=== PATIENT | female | born 1990 | race Caucasian/White ===

== ENCOUNTER 2021-10-31 01:54 | Day surgery (SDC) | payer OTHER, SELFPAY ==
[2021-10-28 13:05] VITALS: BMI 19.5
--- NOTE | 2021-10-28 13:11 | PC.NURSE ---
Report to the Outpatient Waiting Room, entrance under the green pavilion located off [facility], at time _0630__ on date _[id number]_. OR Time: _0830_. - You and your visitor will be asked a series of questions to screen for COVID 19 for your protection. - Only one visitor is allowed at this time. - The patient visitor is requested to leave or wait in car when not with patient. - A mask is required within the hospital. Patients may have clear liquids (water, carbonated beverages, clear teas, apple juice) until 3 hours prior to surgery with a maximum of 20 ounces. - No food from midnight until time of surgery Take the following medications with a SIP of water the morning of surgery: __None Medications to discontinue per physician Date to take last dose Please no make-up, nail serbian, hairspray, perfume, deodorant, or body powder the day of surgery. No jewelry (including any body piercings) or valuables the day of surgery, leave them at home. Please take a shower or bath the night before, or the morning of, surgery with an antibacterial soap. Wear comfortable, loose fitting clothing. Children are encouraged to wear pajamas. - Jewelry must be removed prior to entering the operating room. Rings and piercings that are not removed may be cut off. - The hospital will not accept responsibility for valuables. - Please leave all valuables, including medications, at home the day of surgery. If you are going home after surgery, a licensed dump truck driver must drive you home. - NO public transportation without another adult. - We recommend that an adult stay with you for 24 hours following discharge. - We also recommend that you do not drive, make important decision, drink alcoholic beverages, or take any drugs that were not prescribed by your health care provider for at least 24 hours after your discharge time. Follow any additional instructions given to you from your surgeon. If you or anyone in your household have experienced Covid symptoms in the past week, please notify your surgeon or the nurse liaison at the phone number below for possible testing. Telephone instructions given to __Patient and asked if any additional questions and then verbalized understanding. Patient advised to call surgeon office or pre surgery nurse liaison [phone] if any additional questions.
--- NOTE | 2021-10-30 21:31 | PM.HPGS ---
History of Present Illness History of Present Illness Consent: Risks, benefits, and alternatives have been discussed and questions answered. Patient agrees to proceed with procedure. Chief complaint: umbilical hernia 3mm Narrative: Mckenzie Kuhn is a 31 year old White female that recently presented to the office at the request of Daiana Balderas NP for an evaluation of an umbilical hernia. Patient reports that she first noticed a bulge above her umbilical about lat Jul 2021. She reports that she went to the gym after noticing the bulge, and was on leg exercise day and when she was finished with the workout she thought the bulge was larger. She reports that there is no pain or swelling associated with the bulge. She reports no change in her bowel habits. However, she would like to consider having this repaired because she would not like to have to have an emergency surgery. She reports that she has had 2 pregnancies within the past 3 years. She reports that she is not planning any more children. She is not currently on control nor has had a tubal ligation. Patient denies any previous abdominal surgeries. She reports that her father has had a hernia as well Review of Systems Review of Systems: All systems reviewed & are unremarkable except as noted in HPI and below (HPI) Constitutional: Constitutional: Reports as per HPI, Denies chills and Denies fever(s) Eyes: Eyes: Reports no additional eye complaints ENT: Reports Normal hearing present and Denies dizziness Cardiovascular: Cardiovascular: Reports no additional cardiovascular complaints, Denies chest pain and Denies irregular heart rhythm Respiratory: Respiratory: Reports no additional respiratory complaints Gastrointestinal: Gastrointestinal: Reports no additional gastrointestinal complaints, Denies abdominal pain, Denies bloating and Denies diarrhea Comments: still not much pain from the umbilical hernia. Genitourinary: Genitourinary: Denies hematuria Musculoskeletal: Musculoskeletal: Denies back pain Integumentary/Breasts: Skin/Breast: Reports system reviewed and no additional complaints, except as docu and Reports as per HPI Neurologic: Reports Normal hearing present, Denies Abnormal speech present, Denies confusion and Denies dizziness Psychiatric: Psychiatric: Reports no additional psychiatric complaints and Denies confusion Endocrine: Endocrine: Reports no additional endocrine complaints Hematologic/Lymphatic: Hematologic/Lymphatic: Denies easy bleeding and Denies easy bruising Allergic/Immunologic: Allergic/Immunologic: Reports no additional allergic/immunologic complaints PMFSH Past Medical History Medical History No pertinent past medical history Surgical History Surgical History H/O breast augmentation (~2012) History of augmentation of both breasts 2012 Family History Family History Mother Alcoholism Hypertension Depression Father Hypertension Alcoholism Depression Grandparent Cerebrovascular accident Grandparent Diabetes mellitus Sibling Alcoholism Social History Social History Smoking status: Never smoker Alcohol intake: current Drinks per week: 5 Substance use: never Substance use type: does not use Living arrangements: with family Additional living arrangements comments: Spouse and 2 daughters Additional occupation/education comments: stay at home mom Gender identity (if verbalized by the patient): Female Spiritual care concerns: No Meds Home Medications and Allergies Home Medications Medication Instructions Recorded Confirmed Type No Home Medications 08/26/21 10/28/21 History Allergies Allergy/AdvReac Type Severity Reaction Status Date / Time No Known Allergies A
[2021-10-31] VITALS (7 sets, daily range): BP systolic 101–112; BP diastolic 62–81; PULSE 68–105; RESP 12–20; TEMP 36.6; O2SAT 100
--- NOTE | 2021-10-31 07:11 | WPDANESEPPF ---
Anes - Initial Pre Proc Eval Procedure: Operation Date: 10/31/21 08:30 Proposed Procedures p Open Umbilical Hernia Repair with Sutures, - Edmund Layton MD s Excision of Skin Lesion Right Upper Quadrant of Abdomen - Edmund Layton MD Date/Time: 10/31/21 07:11 Surgeon: Edmund Layton MD Pre Op Diagnosis: umbilical hernia 3mm Patient Data Age: 31 Gender: F Height: 1.7 m Weight: 56.8 kg Allergies Allergy/AdvReac Type Severity Reaction Status Date / Time No Known Allergies Allergy Verified 10/28/21 13:05 Home Medications Medication Instructions Recorded Confirmed Type No Home Medications 08/26/21 10/28/21 History Patient hx anesthesia problems: none Family hx anesthesia problems: none Results Review: All pre-operative results and documents have been reviewed as part of the pre-operative evaluation. [facility] Past Medical History Medical History No pertinent past medical history Surgical History Surgical History H/O breast augmentation (~2012) History of augmentation of both breasts 2012 Family History Family History Mother Alcoholism Hypertension Depression Father Hypertension Alcoholism Depression Grandparent Cerebrovascular accident Grandparent Diabetes mellitus Sibling Alcoholism Social History Social History Smoking status: Never smoker Alcohol intake: current Drinks per week: 5 Substance use: never Substance use type: does not use Living arrangements: with family Additional living arrangements comments: Spouse and 2 daughters Additional occupation/education comments: stay at home mom Gender identity (if verbalized by the patient): Female Spiritual care concerns: No Anes - Eval Final PreProcedure Day of Procedure 10/31/21 07:11 Patient weight: normal Heart: regular rate and rhythm Lungs: clear to auscultation Airway: Mallampati scale class II Neurological: alert and oriented Last oral intake: >/= 8 hours ASA classification: I Emergent: no Anesthetic plan: proceed Anesthesia type and monitoring: general ETT and standard monitoring Results Review: All pre-operative results and documents have been reviewed as part of the pre-operative evaluation. Informed Consent: The patient's anesthetic plan and its attendant risks and benefits were discussed with the patient/family/POA. Questions were solicited and answers provided to the satisfaction of the patient/family/POA.
[2021-10-31] MEDS: ACETAMINOPHEN 500 MG TABLET 1000 MG PO (07:20)
[2021-10-31] MEDS: KETOROLAC 15 MG/ML VIAL (*BKC) IV PUSH (07:20)
[2021-10-31] MEDS: LACTATED RINGERS 1,000 ML 30 ML IV CONT ×2 (08:06→09:47)
--- NOTE | 2021-10-31 08:09 | WPDHPUPDATE1 ---
History and Physical Update Update Date/Time: 10/31/21 08:09 History and Physical has been reviewed, including an updated exam of the patient. There are NO changes in the patient's condition. Risks, benefits, and alternatives have been discussed and questions answered. Patient agrees to proceed with procedure.
[2021-10-31] MEDS: BACITRACIN OINTMENT 15 GM TUBE 1 APPLIC TOPICAL (09:00)
--- NOTE | 2021-10-31 09:59 | W.PM.PROC2 ---
Procedure Note - Detailed Date of Procedure 10/31/21 Pre-op Diagnosis 1. umbilical hernia 2. 3 mm dark elevated skin lesion (3 cm above and right of the umbilicus). Post-op Diagnosis Same Procedure Performed 1. Open umbilical hernia repair with sutures. 2. Skin level amputation of dark skin tag anterior abdominal skin. Surgeon Edmund Layton MD Automatic Profile [employer]ander Operator [facility]. OR First Asst. Anesthesia General (via LMA) Indications Bulging and pain at the umbilicus. Dark skin dark skin lesion on anterior abdominal skin Findings Small about 0.8 cm fascial defect under the skin of the umbilicus. Skin lesion was raised above the skin therefore simply amputated it at skin level and used cautery to stop any bleeding. Will let it heal in by secondary intention. Description of Procedure Patient was brought to the OR room on a cart. She then slid over onto the OR table. After induction of adequate general anesthesia including placement of an LMA by Tony anesthesia we prepped the entire abdomen concentrating on the center with chlorhexidine. Time-out was then performed with the surgery team and appropriate draping was completed. Local anesthetic was then instilled in a curvilinear line right at the upper edge of the umbilicus as previously outlined. skin incision was made and then I used the same 15 blade knife to carefully elevate the dark skin tag that was about 3 cm above and somewhat lateral to the umbilicus and amputated at skin level. I touch the base of this with Bovie cautery but did not try to close it as it was about 3 mm in size. I then turned my attention back to the umbilical hernia repair. We then carefully lifted the shorter skin flap superiorly off the hernia sac and dissected straight down to the superior edge of the fascial defect. It was a round fascial defect. I used a 15 blade knife and two Allis's to elevate the umbilical skin of the inferior skin flap and hen dissected the inferior umbilical skin flap off the hernia sac. I then carefully incised the hernia sac at its center and carefully dissected into the subcutaneous tissues above the level of the defect in the fascia such that we could dissect under the subcutaneous tissues for 1 cm cephalad. This nicely exposed the circular fascial defect. The mid section of the hernia sac both superiorly and inferiorly was then excised with Bovie cautery exposing the fascial edges. The visible and free omentum was able to be pushed back into the abdomen. After freshening the edges of the fascia I then did a mlijy-lith-vuvo closure with 3 sutures of 0 Ethibond starting each suture with a deep bite inferiorly then the superficial bite by coming through top to bottom superiorly then going again deep under superiorly then bringing the suture in a [id number]-xy-shwos fashion superficially inferiorly deep to superficial such that when we tied all 3 it pulled the upper fascia slightly underneath the edge of the lower fascia. After placing all 3 sutures I pulled them up tight making sure the omentum was nicely freed from the edges and stayed in the abdomen. I then tied each of these serially and then I placed one more simple suture to the Right lateral side to approximate more strongly the edge of the fascia in that area. The repair was inspected and palpated and seemed to be strong. Local anesthetic was then infiltrated into the surrounding tissues using the 2% Xylocaine with epinephrine to give a persisting analgesic effect for postoperative pain. Following this further closure was completed by using 3-0 Vicryl sutures in the subcutaneous tissues and then in a running subcuticular closure of 4-0 Monocryl on the skin. I also used one 3-0 Vicryl on the underside of the center of the inferior skin flap that had been dissected over the hernia and sutured this to the underlying fascia to try to give the patient an inny umbilicus. A sterile cotton ball was placed in the umbilicus after letting the surgical gl
== END 2021-10-31 11:11 | disposition home or self-care (01) ==
PROVIDERS: PCP Nurse Practitioner; Visit Provider Surgery
PROC: (CPT 49585; principal; 2021-10-31 08:30)
PROC: (CPT 49585; 2021-10-31 08:30)
DX: K42.9 Umbilical hernia without obstruction or gangrene (principal); D22.5 Melanocytic nevi of trunk
CPT/HCPCS: 49585; 11200; 88302; 88305; A9270; J1100; J1885; J2250; J2405; J2704; J3010; J7120

== ENCOUNTER 2022-02-16 16:58 | Emergency (ER) | payer OTHER, SELFPAY ==
[2022-02-16] VITALS (24 sets, daily range): BP systolic 107–151; BP diastolic 78–96; PULSE 70–94; RESP 13–25; O2SAT 98–100
--- NOTE | 2022-02-16 17:17 | ECG_ITS ---
Measurements Intervals [place] Rate: 71 P: -23 OH: 116 QRS: 60 QRSD: 86 T: 66 QT: 421 QTc: 457 Interpretive Statements SINUS OR ECTOPIC ATRIAL RHYTHM WITH SHORT OH INTERVAL BORDERLINE ECG NO PREVIOUS ECG AVAILABLE FOR COMPARISON Electronically Signed On 02-16-2022 21:11:28 CDT by Jerman Nickerson D.O.
[2022-02-16 17:25] LABS: Basophils Absolute Auto 0.1 K/mm3 (0.0-0.1); Basophils Percent Auto 0.7 % (0.2-1.2); Eosinophils Absolute Auto 0.1 K/mm3 (0-0.3); Eosinophils Percent Auto 1.4 % (0-4.4); Hematocrit 38.3 % (37.0-47.0); Hemoglobin 12.4 g/dL (12.0-15.0); Immature Granulocyte Absolute 0.03 K/mm3 (0.00-0.031); Immature Granulocyte Percent A 0.3 % (0-0.5); Lymphocytes Absolute Auto 3.63 K/mm3 (0.9-3.2); Mean Corpuscular HGB Conc 32.4 g/dl (32-36); Mean Corpuscular Hemoglobin 29.4 pg (26-34); Mean Corpuscular Volume 90.8 fl (80-100); Mean Platelet Volume 10.1 fl (7.4-10.4); Monocytes Absolute Auto 0.6 K/mm3 (0.1-0.6); Monocytes Percent Auto 5.9 % (2.6-8.5); Neutrophils Absolute Auto 5.6 K/mm3 (1.3-6.7); Neutrophils Percent Auto 55.7 % (45.5-73.1); Platelet Count Result 340 k/mm3 (150-375); Red Blood Count 4.22 M/mm3 (4.2-5.4); Red Cell Distribution Width 13.4 % (11.5-14.5); White Blood Count 10.1 K/mm3 (4.5-10.0)
[2022-02-16 17:37] LABS: Alanine Aminotransferase 14 U/L (6-35); Albumin Level 4.7 g/dL (3.5-5.1); Alkaline Phosphatase 79 U/L (38-126); Anion Gap 15 mmol/L (8-16); Aspartate Amino Transferase 20 U/L (14-36); Bilirubin,Total 0.4 mg/dL (0.2-1.3); Blood Urea Nitrogen 13 mg/dL (7-17); Calcium 8.8 mg/dL (8.4-10.2); Carbon Dioxide 19 mmol/L (22-30); Chloride 102 mmol/L (98-107); Estimated CRCL calculation 88 ml/min; Estimated Glomerular Filt Rate > 60; Glucose 108 mg/dL (65-110); Potassium 3.4 mmol/L (3.4-5.0); Sodium 136 mmol/L (137-145)
[2022-02-16] MEDS: LORazepam INJ (*CRX) 2 MG/ML VIAL 1 MG IV PUSH (17:51)
--- NOTE | 2022-02-16 17:54 | ED.DIZZY ---
HPI - Dizziness General Chief Complaint: Dizziness Stated Complaint: face numb, SOB Time Seen by Provider: 02/16/22 17:34 History of Present Illness HPI Narrative: 32 years old white female presents with sudden onset of lightheadedness dizziness feeling like going to blackout, associated with hyperventilation, stomach upset, tingling numbness of the upper extremities started in the last 15 minutes before finishing her chemistry class. Patient went back to school 2 weeks ago, today in the second chemistry class, too much stress lately. Patient came to the emergency room by private car, currently feeling much better compared to 1 hour ago. Patient does not smoke or drink or uses drugs, her parents have history of depression and currently on medications. Patient denies suicidal or homicidal ideation. Related Data Home Medications Medication Instructions Recorded Confirmed No Home Medications 11/20/21 01/13/22 Allergies Allergy/AdvReac Type Severity Reaction Status Date / Time No Known Allergies Allergy Verified 02/16/22 17:15 Review of Systems Review of Systems: All systems reviewed & are unremarkable except as noted in HPI and below PMFSH Past Medical History Medical History No pertinent past medical history Surgical History Surgical History H/O breast augmentation (~2012) H/O local excision of skin lesion 12/27/21 3cm skin lesion removed. History of augmentation of both breasts 2012 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 Hx of umbilical hernia repair Open umbilical hernia repair with sutures 10/31/2021 Family History Family History Mother Alcoholism Hypertension Depression Father Hypertension Alcoholism Depression Grandparent Cerebrovascular accident Grandparent Diabetes mellitus Sibling Alcoholism Social History Social History Smoking status: Never smoker Alcohol intake: current Drinks per week: 5 Substance use: never Substance use type: does not use Additional living arrangements comments: Spouse and 2 daughters Additional occupation/education comments: stay at home mom Gender identity (if verbalized by the patient): Female Spiritual care concerns: No Exam Narrative: General appearance: Well-developed, well-nourished Skin: Normal color Head: Normocephalic, nontraumatic Eyes: Clear conjunctiva ENT: Oropharynx normal, ears normal, nose normal Neck: Supple, nontender Chest and respiratory: Airway patent, no respiratory distress, no accessory muscle use Heart: Regular rate/rhythm Abdomen: Soft, nontender, no organomegaly, quiet bowel sounds Vascular: Normal peripheral pulses, normal capillary refill. Musculoskeletal: Normal range of motion, nontender back Neurologic: Alert and oriented ?3, MANAGER PURCHASING is normal as tested, no gross motor deficit Course Course Emergency Course: Dr. Madrid Consultation #1: Dr. Brooks Regarding to the short CA interval and delta wave and the possibility of WPW. Outpatient follow-up for echo. Date: 02/16/22 Time: 20:13 Vital Signs Vital signs: Vital Signs Pulse Rate 82 02/16/22 17:04 Blood Pressure 107/96 H 02/16/22 17:04 Pulse Rate 86 02/16/22 19:52 Respiratory Rate 18 02/16/22 19:52 Blood Pressure 119/83 02/16/22 19:30 Pulse Oximetry 98 02/16/22 19:52 Oxygen Delivery Room Air 02/16/22 17:07 MDM - Dizziness MDM Narrative Medical
== END 2022-02-16 20:45 | disposition home or self-care (01) ==
PROVIDERS: Emergency Provider Emergency Medicine; PCP Nurse Practitioner
DX: R42 Dizziness and giddiness (principal); R06.4 Hyperventilation; R94.31 Abnormal electrocardiogram [ECG] [EKG]
CPT/HCPCS: 36415; 80053; 85025; 93005; 96374; 99284; J2060

== ENCOUNTER 2022-09-18 12:25 | Outpatient (CLI) | payer OTHER, SELFPAY ==
--- NOTE | ~2022-09-18 | CT_ITS ---
Non-contrast Head CT History: Headache Technique: Axial non-contrast imaging of the brain was performed. Dose reduction technique was used on this scan by utilizing automated exposure control and iterative reconstruction technique. The dose -length product (DLP) was 681.00 mGy-cm. Findings: There is no evidence of intracranial hemorrhage, mass lesion, or acute infarct. Brain par enchyma appears normal. The ventricles and subarachnoid spaces are normal in size. The calvarium ap pears normal. The visualized paranasal sinuses and mastoid air cells are clear. Impression: No significant abnormality seen. Reviewed, dictated and finalized at location . Impression: No significant abnormality seen.
== END 2022-09-18 12:26 | disposition home or self-care (01) ==
LOC: ANHIMG 12:28
PROVIDERS: PCP Nurse Practitioner; Visit Provider Nurse Practitioner
DX: R51.9 Headache, unspecified (principal); R42 Dizziness and giddiness
CPT/HCPCS: 70450

== ENCOUNTER 2024-06-04 22:24 | Emergency (ER) | payer SELFPAY ==
--- NOTE | ~2024-06-04 | US_ITS ---
EXAMINATION: US pelvic complete w TV DATE: 06/05/2024 05:49 INDICATION: Left ovarian cyst. TECHNIQUE: Multiple transabdominal and transvaginal sonographic images of the pelvis were obtained. COMPARISON: CT abdomen and pelvis 06/05/2024 FINDINGS: TRANSABDOMINAL ULTRASOUND: The uterus measures 8.6 x 4.0 x 5.2 cm. There is no free fluid in the pelvis. TRANSVAGINAL ULTRASOUND: The endometrial complex measures 12 mm in thickness. The right ovary measures 3.2 x 1.5 x 2.3 cm. The left ovary measures 8.0 x 4.1 cm and contains a 7.7 cm echogenic shadowing mass, consistent with a d ermoid. There is normal vascular flow in the ovaries.. IMPRESSION: 1. 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 Reviewed, dictated and finalized at location A. [facility]
--- NOTE | ~2024-06-04 | CT_ITS ---
EXAMINATION: CT abdomen pelvis w con DATE: 06/05/2024 02:21 INDICATION: Right lower quadrant abdominal pain. TECHNIQUE: Computed tomography (CT) of the abdomen and pelvis was performed with 100 mL Omnipaque 350 intravenous contrast. Automated exposure control and iterative reconstruction technique were employe d. The dose-length product was 248.50 mGy-cm. COMPARISON: None. FINDINGS: The visualized portions of the lung bases demonstrate mild atelectasis. No pleural effusion . The heart size is normal. No pericardial effusion. There are bilateral breast implants. The liver, gallbladder, spleen, pancreas, adrenal glands, and kidneys are normal. There is a 7.8 x 4.0 cm mass c ontaining fat in the left ovary, consistent with a dermoid. There are no dilated loops of bowel. The appendix is not visualized. There are no pathologically enlarged lymph nodes. There is physiologic fl uid in the pelvis. There is mild lumbar spondylosis. IMPRESSION: 1. 7.8 cm dermoid in the left ovary. Reviewed, dictated and finalized at location A. [employer]
[2024-06-04 22:31] VITALS: BP 116/66; PULSE 102; RESP 18; TEMP 36.7; O2SAT 100
[2024-06-05 01:35] LABS: BEDSIDEPREGUCG Negative (Negative)
[2024-06-05 01:49] LABS: Add Urine Microscopic? YES; Appearance Urine Cloudy (Clear); Bacteria Urine 2+ /hpf; Bilirubin Urine Negative (Negative); Blood Urine Negative (Negative); Color Urine Yellow (Yellow); Glucose Urine UA Negative (Negative); Ketones Urine 2+ mg/dL (Negative); Leukocyte Esterase Ur 2+ LEU/UL (Negative); Need Manual Microscopic Reviewed; Nitrate Urine Negative (Negative); Protein Urine Negative (Negative); Specific Grav Ur 1.026 (1.001-1.035); Squamous Epithelial Cell Urine Few /hpf (Few); Urobilinogen Urine 0.2 mg/dL (<2.0); WBC Urine 21-50 /hpf (0-3)
[2024-06-05 01:51] LABS: Alanine Aminotransferase 13 U/L (6-35); Albumin Level 4.4 g/dL (3.5-5.1); Alkaline Phosphatase 69 U/L (38-126); Anion Gap 6 mmol/L (4-12); Aspartate Amino Transferase 21 U/L (14-36); Bilirubin,Total 0.6 mg/dL (0.2-1.3); Blood Urea Nitrogen 16 mg/dL (7-17); Calcium 9.4 mg/dL (8.4-10.2); Carbon Dioxide 23 mmol/L (22-30); Chloride 106 mmol/L (98-107); Estimated CRCL calculation 79 ml/min; Estimated Glomerular Filt Rate > 60; Glucose 131 mg/dL (65-110); Lipase 96 U/L (23-300); Potassium 4.1 mmol/L (3.4-5.0); Sodium 135 mmol/L (137-145)
[2024-06-05] MEDS: ACETAMINOPHEN 500 MG TABLET 1000 MG PO (01:51)
[2024-06-05] MEDS: DICYCLOMINE HCL 10 MG CAPSULE 20 MG PO (01:52)
[2024-06-05 01:56] VITALS: BP 119/89; PULSE 67; RESP 18; O2SAT 100
[2024-06-05 02:04] LABS: Basophils Percent Auto 0.2 % (0.2-1.2); Eosinophils Percent Auto 0.1 % (0-4.4); Hematocrit 39.3 % (37.0-47.0); Hemoglobin 12.7 g/dL (12.0-15.0); Immature Granulocyte Absolute 0.43 K/mm3 (0.00-0.031); Immature Granulocyte Percent A 2.2 % (0-0.5); Lymphocytes Absolute Auto 0.95 K/mm3 (0.9-3.2); Lymphocytes Percent Auto 4.8 % (18.3-44.2); Mean Corpuscular HGB Conc 32.3 g/dl (32-36); Mean Corpuscular Hemoglobin 27.4 pg (26-34); Mean Corpuscular Volume 84.9 fl (80-100); Mean Platelet Volume 10.5 fl (7.4-10.4); Monocytes Absolute Auto 0.5 K/mm3 (0.1-0.6); Monocytes Percent Auto 2.7 % (2.6-8.5); Neutrophils Absolute Auto 17.8 K/mm3 (1.3-6.7); Platelet Count Result 283 k/mm3 (150-375); Red Blood Count 4.63 M/mm3 (4.2-5.4); Red Cell Distribution Width 14.7 % (11.5-14.5); White Blood Count 19.8 K/mm3 (4.5-10.0)
--- NOTE | 2024-06-05 03:03 | ED_ITS ---
HPI - Abdominal Pain General Chief Complaint: Abdominal Pain <RENEE Guaman Last Filed: 06/05/24 20:25> Stated Complaint: abdominal pain after soda consumption <RENEE Guaman Last Filed: 06/05/24 20:25> Time Seen by Provider: 06/05/24 01:06 <RENEE Guaman Last Filed: 06/05/24 20:25> Source: patient <RENEE Guaman Last Filed: 06/05/24 20:25> Mode of arrival: ambulatory <RENEE Guaman Last Filed: 06/05/24 20:25> Limitations: no limitations <RENEE Guaman Last Filed: 06/05/24 20:25> History of Present Illness HPI narrative: Patient is a 34-year-old female who presents the ED with report of lower abdominal pain. Patient reports she developed pain around 7:30 p.m. tonight after eating dinner. She notes she had a soda with dinner and does not usually drink soda. She that this may be gas pains. States pain has continued to worsen throughout lower abd. Tried taking Tums without improvement. Has not taken anything further for pain. Pain worse with movement, lying flat. Denies nausea, vomiting, diarrhea, constipation, fevers. <RENEE Guaman Last Filed: 06/05/24 20:25> Related Data Allergies/Adverse Reactions: Allergies Allergy/AdvReac Type Severity Reaction Status Date / Time No Known Allergies Allergy Verified 09/12/22 14:02 <RENEE Guaman Last Filed: 06/05/24 20:25> Review of Systems 2 Review of Systems: All systems reviewed & are unremarkable except as noted in HPI. <RENEE Guaman Last Filed: 06/05/24 20:25> All systems reviewed & are unremarkable except as noted in HPI and below < RENEE Guaman Last Filed: 06/05/24 20:25> [facility] Past Medical History Medical History: Medical History Abnormal electrocardiography Intradermal melanocytic nevus <Juana Shepard PA-C - Last Filed: 06/05/24 20:25> Surgical History Surgical History: Surgical History H/O local excision of skin lesion 12/27/21 3cm skin lesion removed. 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 Hx of umbilical hernia repair Open umbilical hernia repair with sutures 10/31/2021 History of augmentation of both breasts 2012 H/O breast augmentation (~2012) <Juana Shepard PA-C - Last Filed: 06/05/24 20:25> Family History Family History: Family History Mother Alcoholism Hypertension Depression Father Hypertension Alcoholism Depression Grandparent Cerebrovascular accident Grandparent Diabetes mellitus Sibling Alcoholism <Juana Shepard PA-C - Last Filed: 06/05/24 20:25> Social History Social History: Social History Smoking status: Never smoker Alcohol intake: current Drinks per week: 5 Substance use: never Substance use type: does not use Living arrangements: with family Additional living arrangements comments: Spouse and 2 daughters Occupation/Education: unemployed Additional occupation/education comments: stay at home mom Gender identity (if verbalized by the patient): Female Spiritual care concerns: No <Juana Shepard PA-C - Last Filed: 06/05/24 20:25> Exam 2 Narrative: GENERAL: Somewhat uncomfortable appearing, thin, non-toxic, in no acute distress. HEAD: Normocephalic, atraumatic. RESPIRATORY: Airway patent, respirations nonlabored. Clear to auscultation bilaterally, no rales, rhonchi, wheezing. CARDIOVASCULAR: Borderline tachycardic with regular rhythm without murmurs, rubs, or gallops. ABDOMINAL: Soft, diffuse tenderness throughout abdomen, more severe tenderness in right upper quadrant/right lower quadrant, voluntary guarding, nondistended. Normoactive BS. MUSCULOSKELETAL: Moves all extremities. No gross deformities. SKIN: Warm, dry, normal color. NEURO: A&O X3. Speech clear. Cranial nerves II-XII grossly intact. No ataxic movements. PSYCHIATRIC: Appropriate mood and affect. Normal interaction. <Juana Shepard PA-C - Last Filed: 06/05/24 20:25> Course [employer]EARCH [employer] INSIGHTS EXECUTIVE/PA Physician Supervision For this patient encounter, I reviewed the RESEARCH & INSIGHTS EXECUTIVE or PA documentation, treatment plan, and medical decision making; and I had [id number] time with this patient. <Tom Heard MD - Last Filed: 06/05/24 06:25> Vital Signs Vital signs: Vital Signs Temperature 98.0 F 06/04/24 22:31 Pulse Rate 102 H 06/04/24 22:31 Respiratory Rate 18 06/04/24 22:31 Blood Pressure 116/66 06/04/24 22:31 Pulse Oximetry 100 06/04/24 22:31 Oxygen Delivery Room Air 06/04/24 22:31 Temperature 98.0 F 06/04/24 22:31 Pulse Rate 63 06/05/24 06:39 Respiratory Rate 18 06/05/24 06:39 Blood Pressure 124/73 06/05/24 06:39 Pulse Oximetry 100 06/05/24 06:39 Oxygen Delivery Room Air 06/04/24 22:31 <Juana Shepard PA-C - Last Filed: 06/05/24 20:25> Vital Signs Temperature 98.0 F 06/04/24 22:31 Pulse Rate 102 H 06/04/24 22:31 Respiratory Rate 18 06/04/24 22:31 Blood Pressure 116/66 06/04/24 22:31 Pulse Oximetry 100 06/04/24 22:31 Oxygen Delivery Room Air 06/04/24 22:31 Temperature 98.0 F 06/04/24 22:31 Pulse Rate 63 06/05/24 06:39 Respiratory Rate 18 06/05/24 06:39 Blood Pressure 124/73 06/05/24 06:39 Pulse Oximetry 100 06/05/24 06:39 Oxygen Delivery Room Air 06/04/24 22:31 <Tom Heard MD - Last Filed: 06/05/24 06:25> MDM - Abdominal Pain MDM Narrative Medical decision making narrative: Patient presented to ED with onset of right lower quadrant abdominal pain this evening after eating dinner. Vital signs are stable. Slightly tachycardic upon arrival, but in no acute distress. Does appear slightly uncomfortable. CBC with white blood cell count of 19.8. Neutrophil predominance. No bandemia. CMP is unremarkable. Normal LFTs and lipase. Urine with possible infection, 2+ leuk esterase, 21-50 white blood cell count, 2+ urine bacteria. Sent for culture. Will tx. Urine negative. CT scan of abdomen/pelvis obtained and showing large L adnexal lesion, recommended pelvic US. Patient given fluids, Tylenol, Bentyl. Initially reported improvement, but now reporting worsening of pain. Will order additional pain medicine. Ultrasound ordered to rule out torsion. Care signed out to Dr. Heard at shift change pending US results <Juana Shepard PA-C - Last Filed: 06/05/24 20:25> Medical Records Attestation: I reviewed the patient's medical records. <Juana Shepard PA-C - Last Filed: 06/05/24 20:25> Lab Data Attestation: I reviewed the patient's lab results. <Juana Shepard PA-C - Last Filed: 06/05/24 20:25> Result diagrams: 06/05/24 01:29 06/05/24 01:29 <Juana Shepard PA-C - Last Filed: 06/05/24 20:25> Labs: Lab Results 06/05/24 06/05/24 Range/Units 01:29 01:33 WBC 19.8 H (4.5-10.0) K/mm3 RBC 4.63 (4.2-5.4) M/mm3 Hgb 12.7 (12.0-15.0) g/dL Hct 39.3 (37.0-47.0) % MCV 84.9 (80-100) fl MCH 27.4 (26-34) pg MCHC 32.3 (32-36) g/dl RDW 14.7 H (11.5-14.5) % Plt Count 283 (150-375) k/mm3 MPV 10.5 H (7.4-10.4) fl Immature Gran % (Auto) 2.2 H (0-0.5) % Neut % (Auto) 90.0 H (45.5-73.1) % Lymph % (Auto) 4.8 L (18.3-44.2) % [place] % (Auto) 2.7 (2.6-8.5) % Eos % (Auto) 0.1 (0-4.4) % Baso % (Auto) 0.2 (0.2-1.2) % Lymph # (Auto) 0.95 (0.9-3.2) K/mm3 [place] # (Auto) 0.5 (0.1-0.6) K/mm3 Eos # (Auto) 0.0 (0-0.3) K/mm3 Baso # (Auto) 0.0 (0.0-0.1) K/mm3 Abs Immat Gran (auto) 0.43 H (0.00-0.031) K/mm3 Absolute Neuts (auto) 17.8 H (1.3-6.7) K/mm3 Absolute Nucleated RBC 0.000 (0.0-0.012) K/mm3 Nucleated RBC % 0.0 (0.0-0.2) % Sodium 135 L (137-145) mmol/L Potassium 4.1 (3.4-5.0) mmol/L Chloride 106 (98-107) mmol/L Carbon Dioxide 23 (22-30) mmol/L Anion Gap 6 (4-12) mmol/L BUN 16 (7-17) mg/dL Creatinine 0.80 (0.7-1.0) mg/dL Estim Creat Clear Calc 79 ml/min Estimated GFR > 60 (59 - ) Glucose 131 H (65-110) mg/dL Calcium 9.4 (8.4-10.2) mg/dL Total Bilirubin 0.6 (0.2-1.3) mg/dL AST 21 (14-36) U/L ALT 13 (6-35) U/L Alkaline Phosphatase 69 (38-126) U/L Total Protein 8.0 (6.3-8.2) g/dL Albumin 4.4 (3.5-5.1) g/dL Lipase 96 (23-300) U/L Urine Color Yellow (Yellow) Urine Appearance Cloudy H (Clear) Urine pH 5.0 (5.0-9.0) Ur Specific [place] 1.026 (1.001-1.035) Urine Protein Negative (Negative) mg/dL Urine Glucose (UA) Negative (Negative) mg/dL Urine Ketones 2+ H (Negative) mg/dL Ur Blood (Man) Negative (Negative) Urine Nitrate Negative (Negative) Urine Bilirubin Negative (Negative) Urine Urobilinogen 0.2 (<2.0) mg/dL Add Ur Microanalysis Reviewed Leukocyte Esterase Rfl 2+ H (Negative) ROBBIE/UL Urine RBC 6-10 H (0-2) /hpf Urine WBC 21-50 H (0-3) /hpf Ur Squamous Epith Cells Few (Few) /hpf Urine Bacteria 2+ H /hpf Urine Casts 3-5 POC Urine HCG, Qual Negative (Negative) <Juana Shepard PA-C - Last Filed: 06/05/24 20:25> Lab Results 06/05/24 06/05/24 Range/Units 01:29 01:33 WBC 19.8 H (4.5-10.0) K/mm3 RBC 4.63 (4.2-5.4) M/mm3 Hgb 12.7 (12.0-15.0) g/dL Hct 39.3 (37.0-47.0) % MCV 84.9 (80-100) fl MCH 27.4 (26-34) pg MCHC 32.3 (32-36) g/dl RDW 14.7 H (11.5-14.5) % Plt Count 283 (150-375) k/mm3 MPV 10.5 H (7.4-10.4) fl Immature Gran % (Auto) 2.2 H (0-0.5) % Neut % (Auto) 90.0 H (45.5-73.1) % Lymph % (Auto) 4.8 L (18.3-44.2) % [place] % (Auto) 2.7 (2.6-8.5) % Eos % (Auto) 0.1 (0-4.4) % Baso % (Auto) 0.2 (0.2-1.2) % Lymph # (Auto) 0.95 (0.9-3.2) K/mm3 [place] # (Auto) 0.5 (0.1-0.6) K/mm3 Eos # (Auto) 0.0 (0-0.3) K/mm3 Baso # (Auto) 0.0 (0.0-0.1) K/mm3 Abs Immat Gran (auto) 0.43 H (0.00-0.031) K/mm3 Absolute Neuts (auto) 17.8 H (1.3-6.7) K/mm3 Absolute Nucleated RBC 0.000 (0.0-0.012) K/mm3 Nucleated RBC % 0.0 (0.0-0.2) % Sodium 135 L (137-145) mmol/L Potassium 4.1 (3.4-5.0) mmol/L Chloride 106 (98-107) mmol/L Carbon Dioxide 23 (22-30) mmol/L Anion Gap 6 (4-12) mmol/L BUN 16 (7-17) mg/dL Creatinine 0.80 (0.7-1.0) mg/dL Estim Creat Clear Calc 79 ml/min Estimated GFR > 60 (59 - ) Glucose 131 H (65-110) mg/dL Calcium 9.4 (8.4-10.2) mg/dL Total Bilirubin 0.6 (0.2-1.3) mg/dL AST 21 (14-36) U/L ALT 13 (6-35) U/L Alkaline Phosphatase 69 (38-126) U/L Total Protein 8.0 (6.3-8.2) g/dL Albumin 4.4 (3.5-5.1) g/dL Lipase 96 (23-300) U/L Urine Color Yellow (Yellow) Urine Appearance Cloudy H (Clear) Urine pH 5.0 (5.0-9.0) Ur Specific [place] 1.026 (1.001-1.035) Urine Protein Negative (Negative) mg/dL Urine Glucose (UA) Negative (Negative) mg/dL Urine Ketones 2+ H (Negative) mg/dL Ur Blood (Man) Negative (Negative) Urine Nitrate Negative (Negative) Urine Bilirubin Negative (Negative) Urine Urobilinogen 0.2 (<2.0) mg/dL Add Ur Microanalysis Reviewed Leukocyte Esterase Rfl 2+ H (Negative) ROBBIE/UL Urine RBC 6-10 H (0-2) /hpf Urine WBC 21-50 H (0-3) /hpf Ur Squamous Epith Cells Few (Few) /hpf Urine Bacteria 2+ H /hpf Urine Casts 3-5 POC Urine HCG, Qual Negative (Negative) <Tom Heard MD - Last Filed: 06/05/24 06:25> Imaging Data Attestation: I personally reviewed and interpreted this imaging study as follows: < Juana Shepard PA-C - Last Filed: 06/05/24 20:25> Radiologist's impression: ITS Impressions Pelvic/Transvag US 06/05/24 06:01 IMPRESSION: 1. 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 Abdomen/Pelvis CT 06/05/24 06:55 IMPRESSION: 1. 7.8 cm dermoid in the left ovary. STAT RAD CT abd/pelvis: Recommend pelvic ultrasound, left adnexal 8 cm probably dermoid. Right corpus luteum. No definite acute finding. <Juana Shepard PA-C - Last Filed: 06/05/24 20:25> ITS Impressions Pelvic/Transvag US 06/05/24 06:01 IMPRESSION: 1. 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 Abdomen/Pelvis CT 06/05/24 06:55 IMPRESSION: 1. 7.8 cm dermoid in the left ovary. <Tom Heard MD - Last Filed: 06/05/24 06:25> Discharge Plan Discharge Clinical Impression: Right lower quadrant abdominal pain, Cyst of left ovary, UTI (urinary tract infection) <Juana Shepard PA-C - Last Filed: 06/05/24 20:25> Patient Disposition: Home, Self-Care <RENEE Guaman Last Filed: 06/05/24 20:25> Condition: Stable <RENEE Guaman Last Filed: 06/05/24 20:25> Instructions: Antibiotic Form, Ovarian Cyst (ED), Urinary Tract Infection in Women (ED), Abdominal Pain (ED) <RENEE Guaman Last Filed: 06/05/24 20:25> Patient Language: Slovenian <Juana Shepard PA-C - Last Filed: 06/05/24 20:25> Prescriptions: New hydrocodone-acetaminophen 5-325 mg tablet 1 tablet PO Q6H PRN (Reason: pain) 3 Days Qty: 12 0RF cephalexin 500 mg capsule 500 mg PO Q12H 7 Days Qty: 14 0RF No Action sumatriptan succinate 25 mg tablet See Rx Instructions PO .COMPLEX Qty: 9 1RF Rx Instructions: take 1 tab at onset of headache; if no relief may repeat 1 tab after at least 2 hrs; max = 4 tabs/24 hr PO <Juana Shepard PA-C - Last Filed: 06/05/24 20:25> Follow-up/Referrals: Melchor Mix MD [Physician] - PHYSICIAN NOT ON STAFF,NONSTAFF [Primary Care Provider] - <Juana Shepard PA-C - Last Filed: 06/05/24 20:25> Time of Disposition: 06:10 <Juana Shepard PA-C - Last Filed: 06/05/24 20:25> 06:10 <Tom Heard MD - Last Filed: 06/05/24 06:25> Sign Out Sign Out Data: Patient Sign Out occurred on 06/05/24 at 04:03. Patient's care was discussed, and care was transferred from Juana Shepard PA-C to Tom Heard MD. <Juana Shepard PA-C - Last Filed: 06/05/24 20:25>
[2024-06-05] MEDS: SODIUM CHLORIDE 0.9% IV 1,000 ML 999 ML IV CONT (03:14)
[2024-06-05] MEDS: ONDANSETRON INJ 4 MG/2 ML VIAL IV PUSH (04:13)
[2024-06-05] MEDS: MORPHINE SULFATE (*CRX) 4 MG/ML INJ IV PUSH (04:13)
[2024-06-05 04:43] VITALS: BP 116/71; PULSE 69; RESP 17; O2SAT 100
[2024-06-05 06:39] VITALS: BP 124/73; PULSE 63; RESP 18; O2SAT 100
--- OUTSIDE RECORDS SUMMARY | 2024-06-12 02:50 | XMS_ITS | Patient Health Summary ---
Author Organization [facility] Address [address] [place] [address] Care Team Providers Care Turbine Inspector Name Role Phone Daiana Balderas MD Primary Care Provider Chris khan Note from [facility],non-owned Affiliates and Associated Physician Practices is amultiple site organization consisting of ambulatory clinics and hospital sitesin [place], [place], [place] and [place]. This disclosure is being madepursuant to the Care Everywhere program and may not contain all information available regarding this patient. Last updated 18.[facility] Allergies No known active allergies Medications Be aware that medications may not be up to date on this document. Always verify current medications with the patient. No known medications Social History Tobacco Use Types Packs/Day Years Used Date Smoking Tobacco: Never Smokeless Tobacco: Never Sex and Gender Information Value Date Recorded Sex Assigned at Not on file Gender Identity Female 05/09/2021 6:43 PM SALESFORCE BUSINESS ANALYST Sexual Orientation Not on file Last Filed Vital Signs Vital Sign Reading Time Taken Comments Blood Pressure 102/72 05/09/2021 6:48 PM SALESFORCE BUSINESS ANALYST Pulse 96 05/09/2021 6:48 PM SALESFORCE BUSINESS ANALYST Temperature 36.8 ??C (98.3 ??F) 05/09/2021 6:48 PM CS T Respiratory Rate 16 05/09/2021 6:48 PM SALESFORCE BUSINESS ANALYST Oxygen Saturation 97% 05/09/2021 6:48 PM SALESFORCE BUSINESS ANALYST Inhaled Oxygen Concentration - - Weight 56.7 kg (125 lb) 05/09/2021 6:48 PM SALESFORCE BUSINESS ANALYST Height 170.2 cm (5' 7 ) 05/09/2021 6:48 PM SALESFORCE BUSINESS ANALYST Body Mass Index 19.58 05/09/2021 6:48 PM SALESFORCE BUSINESS ANALYST Procedures * STREP A SCREEN - POINT OF CARE (AMB) STL(Performed 05/09/2021) Performed for Acute nasopharyngitis (common cold) Results * STREP A SCREEN - POINT OF CARE (AMB) STL (05/09/2021 7:52 PM SALESFORCE BUSINESS ANALYST) Strep A Rapid POCT Negative Negative [facility] Strep A Internal Control Present [facility] Lot # [id number] [facility] Expiration Date 11/08/22 [facility] Throat ENTIRE THROAT (SURFACE REGION OF NECK) / Unknown 05/09/2021 7:52 PM SALESFORCE BUSINESS ANALYST Kerrie Batista PSYCHIATRY INSTRUCTOR-MULTI SITE LEASING CONSULTANT LAB - POINT OF CA RE ORDERABLES [facility] [address] [phone] Care Teams Turbine Inspector Relationship Specialty Start Date End Date Daiana Balderas MD PCP - General 11/02/21
--- OUTSIDE RECORDS SUMMARY | 2024-06-12 02:50 | XMS_ITS | Clinical Summary ---
Author Organization [facility] Address [address] [place] [address] Care Team Providers Care Cut Roll Machine Operator Name Role Phone Daiana Balderas MD Primary Care Provider Unavaila ble Source Comments [facility],non-owned Affiliates and Associated Physician Practices is amultiple site organization consisting of ambulatory clinics and hospital sitesin [place], [place], [place] and [place]. This disclosure is being madepursuant to the Care Everywhere program and may not contain all information available regarding this patient. Last updated 18.[facility] Allergies No known active allergies Medications Be aware that medications may not be up to date on this document. Always verify current medications with the patient. No known medications Social History Tobacco Use Types Packs/Day Years Used Date Smoking Tobacco: Never Smokeless Tobacco: Never Sex and Gender Information Value Date Recorded Sex Assigned at Not on file Gender Identity Female 05/09/2021 6:43 PM SAMPLER FIRST Sexual Orientation Not on file Last Filed Vital Signs Vital Sign Reading Time Taken Comments Blood Pressure 102/72 05/09/2021 6:48 PM SAMPLER FIRST Pulse 96 05/09/2021 6:48 PM SAMPLER FIRST Temperature 36.8 ??C (98.3 ??F) 05/09/2021 6:48 PM CS T Respiratory Rate 16 05/09/2021 6:48 PM SAMPLER FIRST Oxygen Saturation 97% 05/09/2021 6:48 PM SAMPLER FIRST Inhaled Oxygen Concentration - - Weight 56.7 kg (125 lb) 05/09/2021 6:48 PM SAMPLER FIRST Height 170.2 cm (5' 7 ) 05/09/2021 6:48 PM SAMPLER FIRST Body Mass Index 19.58 05/09/2021 6:48 PM SAMPLER FIRST Plan of Treatment Health Maintenance Due Date Last Done Comments PAP SMEAR 1988 HIV SCREENING 01/18/2003 HEPATITIS C SCREENING 01/14/2006 DTAP/TDAP/TD VACCINES (1 - Tdap) 01/18/2007 HEPATITIS B VACCINE (1 of 3 - 19+ 3-dose series) 01/18/2007 DEPRESSION SCREENING 06/11/2023 COVID-19 VACCINE (3 - 2023-2 5 season) 2024 03/10/2021, 02/17/2021 INFLUENZA VACCINE (#1) 2024 9, 04/17/2019 ZOSTER VACCINE (1 of 2) 01/18/2038 HIB VACCINE Aged Out No longer eligi ble based on patient's age to complete this topic HPV VACCINE Aged Out No longer eligi ble based on patient's age to complete this topic MENINGOCOCCAL VACCINE Aged Out No nicole karyn eligible based on patient's age to complete this topic PNEUMOCOCCAL VACCINE Aged Out No long er eligible based on patient's age to complete this topic Care Teams Cut Roll Machine Operator Relationship Specialty Start Date End Date Daiana Balderas MD PCP - General 11/02/21
--- OUTSIDE RECORDS SUMMARY | 2024-06-12 02:50 | XMS_ITS | Referral Summary ---
Author Organization [facility] Address [address] [place] [address] Care Team Providers Care Compounding And Finishing Supervisor Name Role Phone Daiana Balderas MD Primary Care Provider Unavaila ble Source Comments [facility],non-owned Affiliates and Associated Physician Practices is amultiple site organization consisting of ambulatory clinics and hospital sitesin [place], [place], [place] and [place]. This disclosure is being madepursuant to the Care Everywhere program and may not contain all information available regarding this patient. Last updated 18.[facility] Allergies No known active allergies Medications Be aware that medications may not be up to date on this document. Always verify current medications with the patient. No known medications Social History Tobacco Use Types Packs/Day Years Used Date Smoking Tobacco: Never Smokeless Tobacco: Never Sex and Gender Information Value Date Recorded Sex Assigned at Not on file Gender Identity Female 05/09/2021 6:43 PM BUILDING MAINTENANCE SUPERINTENDENT Sexual Orientation Not on file Last Filed Vital Signs Vital Sign Reading Time Taken Comments Blood Pressure 102/72 05/09/2021 6:48 PM BUILDING MAINTENANCE SUPERINTENDENT Pulse 96 05/09/2021 6:48 PM BUILDING MAINTENANCE SUPERINTENDENT Temperature 36.8 ??C (98.3 ??F) 05/09/2021 6:48 PM CS T Respiratory Rate 16 05/09/2021 6:48 PM BUILDING MAINTENANCE SUPERINTENDENT Oxygen Saturation 97% 05/09/2021 6:48 PM BUILDING MAINTENANCE SUPERINTENDENT Inhaled Oxygen Concentration - - Weight 56.7 kg (125 lb) 05/09/2021 6:48 PM BUILDING MAINTENANCE SUPERINTENDENT Height 170.2 cm (5' 7 ) 05/09/2021 6:48 PM BUILDING MAINTENANCE SUPERINTENDENT Body Mass Index 19.58 05/09/2021 6:48 PM BUILDING MAINTENANCE SUPERINTENDENT Plan of Treatment Not on file Care Teams Compounding And Finishing Supervisor Relationship Specialty Start Date End Date Daiana Balderas MD PCP - General 11/02/21
--- OUTSIDE RECORDS SUMMARY | 2024-06-12 02:50 | XMS_ITS | Encounter Summary ---
Author Organization [facility] Address [address] [place] [address] Care Team Providers Care Disc Pad Grinder Name Role Phone Daiana Balderas MD Primary Care Provider Unavaila ble Reason for Visit * Reason Comments Respiratory Fit Exam Encounter Details Date Type Department Care Team (Latest Contact Info) Description 10/18/2023 2:30 PM CDT Clinical Support [address] [id number] Fitting and adjustment of device Social History Tobacco Use Types Packs/Day Years Used Date Smoking Tobacco: Never Smokeless Tobacco: Never Sex and Gender Information Value Date Recorded Sex Assigned at Not on file Gender Identity Female 05/09/2021 6:43 PM CUFF STITCHER Sexual Orientation Not on file documented as of this encounter Progress Notes * Pia Thomas, RN - 10/18/2023 2:57 PM CDT 3M NIOSH 1870+ N95 Particulate Filter Respirator 1870+ [id number] Qualitative: Bitter Passed documented in this encounter Plan of Treatment Not on file documented as of this encounter Visit Diagnoses Diagnosis Fitting and adjustment of device- Primary Fitting and adjustment of unspecified device documented in this encounter Care Teams Disc Pad Grinder Relationship Specialty Start Date End Date Daiana Balderas MD PCP - General 11/02/21 documented as of this encounter
--- OUTSIDE RECORDS SUMMARY | 2024-06-12 02:51 | XMS_ITS | Encounter Summary ---
Author Organization [facility] Healthcare Address [address] [place] [address] Care Team Providers Care Brim Rounder Name Role Phone Daiana Balderas NP Primary Care Provider [phone] Reason for Visit * Reason Comments TB Test Encounter Details Date Type Department Care Team (Latest Contact Info) Description 12/21/2023 2:30 PM CDT Clinical Support [facility] Medical Group Primary Care [facility] [address] [place] [address] PPD screening test (Primary Dx) Social History Tobacco Use Types Packs/Day Years Used Date Smoking Tobacco: Never Passive Smoke Exposure: Never Smokeless Tobacco: Never AUDIT-C Answer Date Recorded Q1: How often do you have a drink containing alcohol? Never 02/28/2023 Q2: How many drinks containi ng alcohol do you have on a typical day when you are drinking? Patient does not drink Q3: How often do you have si x or more drinks on one occasion? Never 02/28/2023 PHQ-2 Answer Date Recorded PHQ-2 Total Score (If total score is 3 or more points, staff should administer the PHQ-9) 1 02/28/2023 Comments No Sex and Gender Information Value Date Recorded Sex Assigned at Not on file Legal Sex Female 11:24 AM CDT Gender Identity Not on file Sexual Orientation Not on file documented as of this encounter Progress Notes * Marcela Ma, RN - 12/21/2023 2:30 PM CDT PPD reading documented in this encounter Plan of Treatment Not on file documented as of this encounter Visit Diagnoses Diagnosis PPD screening test- Primary Screening examination for pulmonary tuberculosis documented in this encounter Care Teams Brim Rounder Relationship Specialty Start Date End Date Daiana Balderas, KUMAR [address] [place] [phone] PCP - General Nurse Practitioner 10/25/22 documented as of this encounter
--- OUTSIDE RECORDS SUMMARY | 2024-06-12 02:51 | XMS_ITS | Encounter Summary ---
Author Organization [facility] Address [address] [facility] [place] [address] Care Team Providers Care Appeals Referee Name Role Phone Unavailable Primary Care Provider Unavailabl e Reason for Visit * Reason Onset Date Comments Follow-up 05/11/2021 Encounter Details Date Type Department Care Team (Late st Contact Info) Description 05/11/2021 Telephone [facility] AT [address] [phone] Darrion Perry APRN-CNP [address] [place] [phone] Follow-up Social History Tobacco Use Types Packs/Day Years Used Date Smoking Tobacco: Never Smokeless Tobacco: Never Sex and Gender Information Value Date Recorded Sex Assigned at Not on file Gender Identity Female 05/09/2021 6:43 PM NUCLEAR EQUIPMENT TEST ENGINEER Sexual Orientation Not on file COVID-19 Exposure Response Date Recorded In the last month, have you been in contact with someone who was confirmed or suspected to have Coronavirus / COVID-19? No / Unsure 05/09/2021 6:35 PM NUCLEAR EQUIPMENT TEST ENGINEER documented as of this encounter Miscellaneous Notes * Telephone Encounter - Darrion Perry APRN-CNP - 05/11/2021 9:42 AM NUCLEAR EQUIPMENT TEST ENGINEER EMAIL DEPLOYMENT SPECIALIST called for f/u. EMAIL DEPLOYMENT SPECIALIST spoke to pt who stated she was doing better, voiced no further questions or concerns and thanked us for the f/u call. EAR EQUIPMENT TEST ENGINEER documented in this encounter Plan of Treatment Not on file documented as of this encounter Visit Diagnoses Not on filedocumented in this encounter
--- OUTSIDE RECORDS SUMMARY | 2024-06-12 02:51 | XMS_ITS | Encounter Summary ---
Author Organization [facility] Healthcare Address [address] [place] [address] Care Team Providers Care Band And Cuff Cutter Name Role Phone Daiana Balderas NP Primary Care Provider [phone] Encounter Details Date Type Department Care Team (Latest Contact Info) Description 05/23/2024 3:51 PM ACUTE CARE OCCUPATIONAL THERAPIST - 05/23/2024 11:59 PM ACUTE CARE OCCUPATIONAL THERAPIST Hospital Encounter [facility] [place] [address] Screening for cervical cancer Discharge Disposition: Discharge to home or self care Social History Tobacco Use Types Packs/Day Years Used Date Smoking Tobacco: Never Passive Smoke Exposure: Never Smokeless Tobacco: Never AUDIT-C Answer Date Recorded Q1: How often do you have a drink containing alcohol? Never 05/23/2024 Q2: How many drinks containi ng alcohol do you have on a typical day when you are drinking? Patient does not drink Q3: How often do you have si x or more drinks on one occasion? Never 05/23/2024 PHQ-2 Answer Date Recorded PHQ-2 Total Score (If total score is 3 or more points, staff should administer the PHQ-9) 0 05/23/2024 Comments No Sex and Gender Information Value Date Recorded Sex Assigned at Not on file Legal Sex Female 11:24 AM CDT Gender Identity Not on file Sexual Orientation Not on file documented as of this encounter Discharge Disposition Disposition Code Departure Means Destination Discharge to home or self care documented in this encounter Plan of Treatment Not on file documented as of this encounter Procedures Procedure Name Priority Date/Time Associated Diagnosis Comments HIGH RISK HPV DNA DETECTION WITH GENOTYPING Routine 05/23/2024 1:12 PM ACUTE CARE OCCUPATIONAL THERAPIST Screening for cervical cancer PAP AND HIGH RISK HPV, REFLEX TO GENOTYPING Routine 05/23/2024 1:12 PM ACUTE CARE OCCUPATIONAL THERAPIST Screening for cervical cancer documented in this encounter Results * Pap and High Risk HPV and Genotyping (Cytology Component) (05/23/2024 1:12 PM ACUTE CARE OCCUPATIONAL THERAPIST) Thin prep (Pap test) 05/23/2024 1:12 PM ACUTE CARE OCCUPATIONAL THERAPIST 05/26/2024 8:55 AM ACUTE CARE OCCUPATIONAL THERAPIST Narrative PATHOLOGY [facility] - 05/30/2024 10:22 AM ACUTE CARE OCCUPATIONAL THERAPIST EPIC results best viewed via link to PDF [facility] [place] [address] Note to Patients: This report may contain a detailed description of human tissue sent by a health care provider to the laboratory for pathologic evaluation. The content of this report is essential for diagnosis and may provide important critical findings. This information may be unfamiliar to patients to review without a medical professional present. It is advised that the patient review this report in the presence of a health care provider who can answer questions and explain the details. CYTOPATHOLOGY REPORT FINAL Patient Name: ??MCKENZIE HIDALGO Gender: ??F : ??1990 (Age: 34) Address: ??[address] [place] [address] ??[phone] Hospital #: ??[id number] Service: ??DEFAULT Location: ?? Patient Type: ??[facility] SPECIMEN Taken: ??05/23/2024 Received: ??05/26/2024 Accessioned: ??05/26/2024 Reported: ??05/30/2024 Physician(s): ??Daiana Balderas NP ?? FINAL INTERPRETATION SOURCE OF SPECIMEN ? Liquid based Thin Prep pap with HPV: STATEMENT OF ADEQUACY ?- Satisfactory for evaluation ?- Endocervical cells/transformation zone sample present ? GENERAL CATEGORIZATION: ?- Negative for squamous intraepithelial lesion or malignancy ? Comments (Normal-Negative for High Risk HPV) HPV HR 16- Not detected HPV HR 18-Not detected HPV HR non 16/18- Not detected Interpretive Data Nucleic acid amplification for detection of high-risk Human Papilloma virus (HPV) is performed by the To[employer] Julian 6800 HPV test. This assay specifically detects HPV- 16 and HPV-18 genotypes. The following HPV genotypes are detected as high-risk HPV: HPV-31, 33, 35, 39, 45, 51, 52, 56, 58, 59, 66, and 68. This assay has been approved by the United States Food and Drug Administration for detection of HPV in cervical specimens collected by a physician using an endocervical brush/spatula or cervical broom and placed in the ThinPrep Pap Test PreservCyt collection containers. The performance characteristics of this test have been verified by the [facility] Molecular Infectious Disease laboratory. Correlate with reported cytology results, as applicable. Interpretive data last revised 22 salome/05/30/2024 10:22 LLOYD Hallman(ASCP) Report Electronically Reviewed and Signed Out By LLOYD Hallman(ASCP) 05/30/2024 10:22:39 Cervicovaginal Cytology (Pap Test) Disclaimer: The Pap test is a screening test used to detect cervical cancer and its precursors; it is not a diagnostic procedure. False negative and false positive results do occur. Pap test results should be interpreted in the context of pertinent clinical information and biopsy results as indicated. CMS Clinical Laboratory Improvement Amendments (CLIA) mandate that cytologic and histologic results be correlated for laboratory quality technician fiberglass & improvement standards. ??FOR ALL HIGH-GRADE CASES we request submission of follow-up histological material and/or reports that have not been previously provided so that we may fulfill said required standards. ?? Gross Description A. ??Liquid based Thin Prep pap with HPV: ??Cervical/vaginal - Screening ThinPrep Clinical Diagnosis and History Last Menstrual Period: 05/11/2024 Menstrual History: Regular Cycles The patient is a 34 year old female with screening for cervical cancer. Report Images and scanned documents, if included only viewable in PDF version The performance characteristics of some immunohistochemical stains, in-situ hybridization and fluorescence in-situ hybridization tests and immunophenotyping by flow cytometry cited in this report (if any) were determined by the Surgical Pathology Department at [facility] as part of an ongoing microbiology quality control technician program and in compliance with federally mandated regulations drawn from the Clinical Laboratory Improvement Act of 1988 (CLIA '88). ??Some of these tests rely on the use of analyte specific reagents and are subject to specific labeling requirements by the US Food and Drug Administration. ??Such diagnostic tests may only be performed in a facility that is certified by the Department of Health and Human Services as a high complexity laboratory under CLIA '88. ??The FDA has determined that such clearance or approval is not necessary. ??This test is used for clinical purposes. ??It should not be regarded as investigational or for research. ??Nevertheless, federal rules concerning the medical use of analyte specific reagents require that the following disclaimer be attached to the report: This test was developed and its performance characteristics determined by the Surgical Pathology Department of [facility]. ??It has not been cleared or approved by the U. S. Food and Drug Administration. Daiana Balderas NP LAB CYTOLOGY ORDERABLES Final Result PATHOLOGY [facility] * High Risk HPV DNA Detection with Genotyping (Molecular component) (05/23/2024 1:12 PM ACUTE CARE OCCUPATIONAL THERAPIST) HPV HR 16 Not Detected Not Detected [facility] Comment:Testing performed by : [facility], [address] [place]., [address] HPV HR 18 Not Detected Not Detected [facility] Comment:Testing performed by : [facility], [address] [place]., [address] HPV HR Non 16/18 Not Detected Not Detected [facility] Comment: Interpretive Data Nucleic acid amplification for detection of high-risk Human Papilloma virus (HPV) is performed by the To[employer] Julian 6800 HPV test. ??This assay specifically detects HPV-16 and HPV-18 genotypes. ??The following HPV genotypes are detected as high-risk HPV: ?? HPV-31, 33, 35, ,39, 45, 51, 52, 56, 58, 59, 66, and 68. ??This assay has been approved by the United States Food and Drug Administration for detection of HPV in cervical specimens collected by a physician using an endocervical brush/spatula or cervical broom and placed in the ThinPrep Pap Test PreservCyt collection containers. ??The performance characteristics of this test have been verified by the [facility] Molecular Infectious Disease laboratory. Correlate with separately reported cytology results, as applicable. Interpretive data last revised 22 Testing performed by: [facility], [address] [place]., [address] Endocervical 05/23/2024 1:12 PM ACUTE CARE OCCUPATIONAL THERAPIST 05/23/2024 9:23 PM ACUTE CARE OCCUPATIONAL THERAPIST Narrative [facility] - 05/24/2024 6:20 AM ACUTE CARE OCCUPATIONAL THERAPIST Clinical history and diagnosis->screening for cervical cancer Number of vials->1 Testing type->Screening Last menstrual period (date if known)->05/11/2024 Menstrual status->Regular Daiana Balderas NP LAB BODY FLUIDS AND STOOLS ORD ERABLES Final Result [facility] [address] [facility] Department [place] [address] [facility] documented in this encounter Visit Diagnoses Diagnosis Screening for cervical cancer Screening for malignant neoplasm of the cervix documented in this encounter Care Teams Band And Cuff Cutter Relationship Specialty Start Date End Date Daiana Balderas NP [address] [place] [id number] PCP - General Nurse Practitioner 10/25/22 documented as of this encounter
--- OUTSIDE RECORDS SUMMARY | 2024-06-12 02:51 | XMS_ITS | Encounter Summary ---
Author Organization [facility] Healthcare Address [address] [place] [address] Care Team Providers Care Microsoft Dynamics Consultant Name Role Phone Daiana Balderas NP Primary Care Provider [phone] Reason for Visit * Reason Comments TB Test PPD read Encounter Details Date Type Department Care Team (Latest Contact Info) Description 12/31/2023 8:30 AM CDT Clinical Support [facility] Medical Group Primary Care [facility] [address] [place] [address] Encounter for PPD skin test reading (Primary Dx) Social History Tobacco Use Types [...] as of this encounter Progress Notes * Sherry Aguillon MA - 12/31/2023 8:30 AM CDT Patient is here for PPD reading. PPD is negative, 0mm induration. documented in this encounter Plan of Treatment Not on file documented as of this encounter Visit Diagnoses Diagnosis Encounter for PPD skin test reading- Primary documented in this encounter Care Teams Microsoft Dynamics Consultant Relationship Specialty Start Date End Date Daiana Balderas NP [address] [place] [phone] PCP - General Nurse Practitioner 10/25/22 documented as of this encounter
--- OUTSIDE RECORDS SUMMARY | 2024-06-12 02:51 | XMS_ITS | Encounter Summary ---
Author Organization [facility] Healthcare Address [address] [place] [address] Care Team Providers Care Rehabilitation Medicine Physician Name Role Phone Daiana Balderas NP Primary Care Provider [phone] Reason for Referral * Diagnostic Imaging (Routine) - Closed Specialty Diagnoses / Procedures Referred By Contashlyn t Referred To Contact Diagnoses Mass of upper outer quadrant of right breast Procedures US Breast Right Limited Daiana Balderas NP [address] [place] [address] Phone: tel: fax: [address] [phone] Referral ID Status Reason Start Date Expiration Date Visits Re quested Visits Authorized [id number] Closed 07/12/2023 08/10/2024 1 1 STERED PUBLIC HEALTH NURSE Reason for Visit * Reason Comments Breast Mass Right side found abo ut 4 days ago- started period yesterday Encounter Details Date Type Department Care Team (Late st Contact Info) Description 07/12/2023 2:00 PM REGISTERED PUBLIC HEALTH NURSE Office Visit [facility] Medical [facility] Primary Care [address] [place] [phone] Daiana Balderas NP [address] [place] [phone] Mass of upper outer quadrant of right breast (Primary Dx) Social History Tobacco Use Types Packs/Day Years Used Date Smoking Tobacco: Never Passive Smoke Exposure: Never Smokeless Tobacco: Never Tobacco Cessation:Counseling Given: Not Answered AUDIT-C Answer Date Recorded Q1: How often [...] on file documented as of this encounter Last Filed Vital Signs Vital Sign Reading Time Taken Comments Blood Pressure 102/60 07/12/2023 1:59 PM REGISTERED PUBLIC HEALTH NURSE Pulse 81 07/12/2023 1:59 PM REGISTERED PUBLIC HEALTH NURSE Temperature 36.8 ??C (98.3 ??F) 07/12/2023 1:59 PM CS T Respiratory Rate 18 07/12/2023 1:59 PM REGISTERED PUBLIC HEALTH NURSE Oxygen Saturation 98% 07/12/2023 1:59 PM REGISTERED PUBLIC HEALTH NURSE Inhaled Oxygen Concentration - - Weight 57.6 kg (127 lb) 07/12/2023 1:59 PM REGISTERED PUBLIC HEALTH NURSE Height 170.2 cm (5' 7.01 ) 07/12/2023 1:59 PM CS T Body Mass Index 19.89 07/12/2023 1:59 PM REGISTERED PUBLIC HEALTH NURSE documented in this encounter Progress Notes * Daiana Balderas, KUMAR - 07/12/2023 2:00 PM CST Patient ID: Mckenzie Perez is a 33 y.o. female. Chief Complaint. Chief Complaint Patient presents with Breast Mass Right side found about 4 days ago- started period yesterday HPI. Patient is a 33 y.o. female HPI Patient presents in office with complaints of a breast lump in her right outer breast she noticed 4days ago. She states the lump is tender to touch. Denies any fever, chills, or skin redness. Patient has history of breast Augmentation with saline implants, placed over 10 years ago. 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 Reported Positive Pap Smear - (Added by TW Conv) Past Surgical History: Procedure Laterality Date AK BREAST AUGMENTATION WITH IMPLANT Breast Surgery Enlargement Procedure With Prosthetic Implant - 01/2012 (Added by TW Conv) AK COLPOSCOPY CERVIX UPPR/ADJCNT VAGINA W/CERVIX BX Colposcopy Cervix With Biopsy(S) - 2007 (Added by TW Conv) No Known Allergies Social History Tobacco Use Smoking status: Never Passive exposure: Never Smokeless tobacco: Never Substance and Sexual Activity Drug use: Never Sexual activity: None Alcohol Use: Not At Risk (02/28/2023) AUDIT-C Frequency of Alcohol Consumption: Never Average Number of Drinks: Patient does not drink Frequency of Binge Drinking: Never Family History Problem Relation Age of Onset Hypertension Mother Hypertension - (Added by TW Conv) Hypertension Father Alcohol abuse Father Diabetes type II Maternal Grandmother Type 2 Diabetes Mellitus - (Added by TW Conv) Stroke Paternal Grandfather Stroke Syndrome - (Added by TW Conv) Current Medications: No outpatient encounter medications on file as of 07/12/2023. No facility-administered encounter medications on file as of 07/12/2023. Review of Systems: Review of Systems Constitutional: Negative for chills and fever. Cardiovascular: Negative for chest pain and leg swelling. Gastrointestinal: Negative for nausea and vomiting. Skin: Negative for color change. Breast: Positive for lump(s). Negative for tenderness, breast redness and breast discharge. BP 102/60 (BP Location: Left arm, Patient Position: Sitting) Pulse 81 Temp 36.8 ??C (98.3 ??F) (Temporal) Resp 18 Ht 170.2 cm (5' 7.01 ) Wt 57.6 kg (127 lb) SpO2 98% BMI 19.89 kg/m?? Physical Exam: Physical Exam Constitutional: Appearance: Normal appearance. Eyes: Extraocular Movements: Extraocular movements intact. Cardiovascular: Rate and Rhythm: Normal rate. Pulmonary: Effort: Pulmonary effort is normal. Chest: Chest wall: No mass, deformity or crepitus. Breasts: Breasts are symmetrical. Right: Mass present. No swelling, bleeding, inverted nipple, nipple discharge, skin change or tenderness. Left: Normal. No swelling, bleeding, inverted nipple, mass, nipple discharge, skin change or tenderness. Comments: Patient presents with a small pea sized lump to right upper outer breast. Musculoskeletal: General: Normal range of motion. Lymphadenopathy: Upper Body: Right upper body: No supraclavicular, axillary or pectoral adenopathy. Left upper body: No supraclavicular, axillary or pectoral adenopathy. Skin: General: Skin is warm and dry. Findings: No erythema. Neurological: General: No focal deficit present. Mental Status: She is alert and oriented to person, place, and time. Gait: Gait normal. Psychiatric: Attention and Perception: Attention normal. Mood and Affect: Mood normal. Speech: Speech normal. Behavior: Behavior normal. Thought Content: Thought content normal. Assessment & Plan: Diagnoses and all orders for this visit: Mass of upper outer quadrant of right breast (Primary) Comments: Right breast US ordered. Patient to be contacted once US results are obtained. Orders: - US Breast Right Limited; Future Daiana Balderas NP [facility]ER[facility] PUBLIC HEALTH NURSE documented in this encounter Plan of Treatment Not on file documented as of this encounter Results * US Breast Right Limited (08/14/2023 2:55 PM REGISTERED PUBLIC HEALTH NURSE) Anatomical Region Laterality Modality Breast Right Ultrasound 08/14/2023 3:00 PM REGISTERED PUBLIC HEALTH NURSE Narrative 08/14/2023 3:02 PM REGISTERED PUBLIC HEALTH NURSE EXAM DESCRIPTION: ?? US BREAST RIGHT LIMITED; DIAGNOSTIC MAMMOGRAM BILATERAL W RELL W IMPLANTS REASON FOR STUDY: 33-year-old woman comes in today for evaluation of a palpable lump in the right breast, and screening of the left breast. COMPARISON: This is patient's baseline mammogram. FINDINGS: CC and MLO digital breast tomosynthesis of ??both breasts ??with C view was performed. Targeted sonographic examination of the ??right ??breast was also performed with real-time grayscale images and color Doppler. FINDINGS: MAMMOGRAPHIC FINDINGS: DENSITY: ??The breasts are extremely dense, which lowers the sensitivity of mammography. BREASTS: ??There are bilateral subpectoral silicone breast implants. ??The implants are intact. ??The presence of implants limits sensitivity of mammography. ?? No suspicious findings are identified in either breast. ?? Specifically, no suspicious findings are seen in the right breast in the vicinity of the marker that was placed over the area of reported palpable concern, located at approximately the 10 o'clock position posterior depth. ULTRASOUND FINDINGS: Targeted sonographic examination of the right breast at the 10 o'clock position 10 cm from the nipple demonstrates a benign intramammary lymph node that measures 10 x 9 x 3 mm. ??This has no suspicious imaging features. ?? IMPRESSION: 1. ?? The palpable lump of concern in the right breast corresponds to a benign intramammary lymph node at the 10 o'clock position 10 cm from the nipple. ?? This is benign, and requires no additional specific workup or follow-up. 2. ?? Continued monthly breast self-examination is recommended. ??For women of average risk, annual bilateral screening mammography is recommended starting at age 40. ??Risk assessment is recommended to evaluate if patient would benefit from beginning screening at a younger age. BIRADS: 2 - Benign I discussed the findings and recommendations with the patient at the time of the examination. ?? THIS IS AN ELECTRONICALLY VERIFIED FINAL REPORT 08/14/2023 3:02 PM - Electronically signed by ??Lj Mirza M.D. RL: ALONA D: ??08/14/2023 3:02 PM T: ??08/14/2023 3:02 PM Report ID: [id number] Reading Location: ??[facility] Daiana Balderas MECHATRONICS ENGINEER IMG MAMMO PROCEDURES Final Res ult documented in this encounter Visit Diagnoses Diagnosis Mass of upper outer quadrant of right breast- Primary Mass of upper outer quadrant of right breast documented in this encounter Care Teams Rehabilitation Medicine Physician Relationship Specialty Start Date End Date Daiana Balderas NP [address] [place] [phone] PCP - General Nurse Practitioner 10/25/22 documented as of this encounter
--- OUTSIDE RECORDS SUMMARY | 2024-06-12 02:51 | XMS_ITS | Encounter Summary ---
Author Organization [facility] Address [address] [place] [address] Care Team Providers Care Manufacturing Advisor Name Role Phone Unavailable Primary Care Provider Unavailabl e Encounter Details Date Type Department Care Team (Latest Contact Info) Description 05/09/2021 Travel Social History Tobacco Use Types Packs/Day Years Used Date Smoking Tobacco: Never Smokeless Tobacco: Never Sex and Gender Information Value Date Recorded Sex Assigned at Not on file Gender Identity Female 05/09/2021 6:43 PM ENTERTAINMENT CENTRE MANAGER Sexual Orientation Not on file COVID-19 Exposure Response Date Recorded In the last month, have you been in contact with someone who was confirmed or suspected to have Coronavirus / COVID-19? No / Unsure 05/09/2021 6:35 PM ENTERTAINMENT CENTRE MANAGER documented as of this encounter Plan of Treatment Not on file documented as of this encounter Visit Diagnoses Not on filedocumented in this encounter
--- OUTSIDE RECORDS SUMMARY | 2024-06-12 02:51 | XMS_ITS | Encounter Summary ---
Author Organization [facility] Address [address] [place] [address] Care Team Providers Care Manager Lab Name Role Phone Daiana Balderas NP Primary Care Provider [phone] Reason for Referral * Cardiology (Routine) - Closed Specialty Diagnoses / Procedures Referred By Contac t Referred To Contact Procedures ECG 12 lead Manuel Quesada MD [address] [place] [address] Phone: tel: Referral ID Status Reason Start Date Expiration Date Visits Re quested Visits Authorized [id number] Closed 10/25/2022 11/24/2023 1 1 Encounter Details Date Type Department Care Team (Late st Contact Info) Description 10/25/[address] [facility] Cardiology [address] [place] [address] Manuel Quesada MD [address] [place] [address] Social History Tobacco Use Types Packs/Day Years Used Date Smoking Tobacco: Never Passive Smoke Exposure: Never Smokeless Tobacco: Never Comments Unknown Sex and Gender Information Value Date Recorded Sex Assigned at Not on file Legal Sex Female 11:24 AM CDT Gender Identity Not on file Sexual Orientation Not on file documented as of this encounter Plan of Treatment Not on file documented as of this encounter Procedures Procedure Name Priority Date/Time Associated Diagnosis Comments ECG 12-LEAD Routine 02/16/2022 LP W CHOL/HDL RATIO Routine 08/26/2021 documented in this encounter Results * ECG 12 lead (02/16/2022) us Historical Provider ECG ORDERABLES Final Res ult * LP w Chol/HDL Ratio (08/26/2021) SCRIBED Cholesterol, Total 141 <200 EXTERNAL LAB SCRIBED Triglycerides 89 <150 EXTERNAL LAB SCRIBED HDL 37 >40 EXTERNAL LAB SCRIBED VLDL Cholesterol Calculator 3.8 <5.0 EXTERNAL LAB SCRIBED LDL 86 <100 EXTERNAL LAB SCRIBED Total Cholesterol/HDL Ratio 141 <200 EXTERNAL LAB Blood Historical Provider LAB BLOOD ORDERABLES Edit ed Result - Final EXTERNAL LAB documented in this encounter Visit Diagnoses Not on filedocumented in this encounter Care Teams Manager Lab Relationship Specialty Start Date End Date Daiana Balderas NP [address] [place] [id number] PCP - General Nurse Practitioner 10/25/22 documented as of this encounter
--- OUTSIDE RECORDS SUMMARY | 2024-06-12 02:51 | XMS_ITS | Encounter Summary ---
Author Organization [facility] Address [address] [place] [address] Care Team Providers Care Rpg Programmer Name Role Phone No, Physician Primary Care Provider [phone] Daiana Balderas LINUX NETWORK ENGINEER Primary Care Provider [phone] Encounter Details Date Type Department Care Team (Late st Contact Info) Description 10/24/2022 Telephone [facility] Cardiology [address] [facility] [address] [place] [address] Fred Topete MD [address] [place] [address] Social History Tobacco Use Types Packs/Day Years Used Date Smoking Tobacco: Never Comments Unknown Sex and Gender Information Value Date Recorded Sex Assigned at Not on file Legal Sex Female 11:24 AM CDT Gender Identity Not on file Sexual Orientation Not on file documented as of this encounter Miscellaneous Notes * Telephone Encounter - Kim Busby MA - 10/24/2022 4:34 PM CDT EKG and labs received. * Telephone Encounter - Martita Gonzales - 10/24/2022 2:55 PM CDT Daiana Balderas LINUX NETWORK ENGINEER office (PCP) called in regard to a fax request they received for recent labs and EKG. States she will fax most recent lab work from 2022 and EKG is from 02/2022 was done at ED. States she will try to reach out to to fax the EKG to our office. documented in this encounter Plan of Treatment Not on file documented as of this encounter Visit Diagnoses Not on filedocumented in this encounter Care Teams Rpg Programmer Relationship Specialty Start Date End Date No, Physician PCP - General 09/22/22 10/24/22 Daiana Balderas, KUMAR [address] [place] [id number] PCP - General Nurse Practitioner 10/25/22 documented as of this encounter
--- OUTSIDE RECORDS SUMMARY | 2024-06-12 02:51 | XMS_ITS | Encounter Summary ---
Author Organization [facility] Address [address] [place] [address] Care Team Providers Care Chemical Sales Representative Name Role Phone No, Physician Primary Care Provider [phone] Encounter Details Date Type Department Care Team (Late st Contact Info) Description 09/22/2022 Telephone [facility] Cardiology [address] [place] [address] No, Physician Social History Tobacco Use Types Packs/Day Years Used Date Smoking Tobacco: Never Comments Unknown Sex and Gender Information Value Date Recorded Sex Assigned at Not on file Legal Sex Female 11:24 AM CDT Gender Identity Not on file Sexual Orientation Not on file documented as of this encounter Miscellaneous Notes * Telephone Encounter - Albert Macias - 09/22/2022 11:55 AM CDT Called pt, no answer, LM. documented in this encounter Plan of Treatment Not on file documented as of this encounter Visit Diagnoses Not on filedocumented in this encounter Care Teams Chemical Sales Representative Relationship Specialty Start Date End Date No, Physician PCP - General 09/22/22 10/24/22 documented as of this encounter
--- OUTSIDE RECORDS SUMMARY | 2024-06-12 02:51 | XMS_ITS | Referral Summary ---
Author Organization [facility] Address [address] [place] [address] Care Team Providers Care Tetryl Wringer Operator Name Role Phone Daiana Balderas FILTER PRESS TENDER HEAD Primary Care Provider [phone] Encounters Date Type Department Care Team Description 06/06/2024 Telephone [facility] Primary Care [address] [place] [phone] Daiana Balderas NP Recommendation Request 05/23/2024 3:51 PM LEAD SCIENTIST - 05/23/2024 11:59 PM LEAD SCIENTIST Hospital Encounter [facility] Lab [address] [place] [address] Screening for cervical cancer Discharge Disposition: Discharge to home or self care 05/23/2024 12:30 PM LEAD SCIENTIST Office Visit [facility] Primary Care [address] [place] [phone] Daiana Balderas NP Encounter for well woman exam with routine gynecological exam (Primary Dx); Screening for cervical cancer; CAYDEN (generalized anxiety disorder) from Last 3 Months Allergies No known active allergies Medications No known medications Active Problems Problem Noted Date Diagnosed Date Encounter for well woman girma m with routine gynecological exam 05/23/2024 Assessment & Plan (05/26/2024 6:49 AM LEAD SCIENTIST): CBC, CMP, lipid panel,TSH UTD with stable results. Mammogram last completed: 08/2023 Pelvic exam completed in office, patient tolerated procedure well. Pap with HPV testing ordered. Vaccinations: Flu and Tdap vaccines UTD. Patient to continue in current diet and exercise routine. Repeat wellness exam in one year. CAYDEN (generalized anxiety disorder) 02/28/2023 Assessment & Plan (05/26/2024 6:47 AM LEAD SCIENTIST): Chronic, controlled without medication. Patient to follow up yearly. 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 Immunizations Name Administration Dates Next Due Influenza, Quadrivalent, Spl it, Intramuscular 04/17/2019 Influenza, Quadrivalent, Spl it, Preservative Free, Intramuscular 04/17/2019 Influenza, Trivalent, IM (MDV) 05/11/2019 Influenza, Unspecified 03/11/2024,2022(Deferred: Other),04/11/2022(Deferred: Other) PPD TEST 12/28/2023,12/19/2023 Tdap 09/26/2018 Social History Tobacco Use Types Packs/Day Years [...] on file Sexual Orientation Not on file Last Filed Vital Signs Vital Sign Reading Time Taken Comments Blood Pressure 112/80 05/23/2024 12:39 PM LEAD SCIENTIST Pulse 88 05/23/2024 12:39 PM LEAD SCIENTIST Temperature 36.6 ??C (97.9 ??F) 05/23/2024 1 2:39 PM LEAD SCIENTIST Respiratory Rate 16 05/23/2024 12:3 9 PM LEAD SCIENTIST Oxygen Saturation 98% 05/23/2024 12: 39 PM LEAD SCIENTIST Inhaled Oxygen Concentration - - Weight 60.3 kg (132 lb 14.4 oz) 024 12:39 PM LEAD SCIENTIST Height 170.2 cm (5' 7 ) 05/23/2024 12:3 9 PM LEAD SCIENTIST Body Mass Index 20.82 05/23/2024 12:39 PM LEAD SCIENTIST Plan of Treatment Not on file Procedures Procedure Name Priority Date/Time Associated Diagnosis Comments PAP AND HIGH RISK HPV, REFLEX TO GENOTYPING Routine 05/23/2024 1:12 PM LEAD SCIENTIST Screening for cervical cancer HIGH RISK HPV DNA DETECTION WITH GENOTYPING Routine 05/23/2024 1:12 PM LEAD SCIENTIST Screening for cervical cancer from Last 3 Months Results * High Risk HPV DNA Detection with Genotyping (Molecular component) (05/23/2024 1:12 PM LEAD SCIENTIST) HPV HR 16 Not Detected Not Detected [facility] Comment:Testing performed by : [facility], [address] [place] [address]., [id number] HPV HR 18 Not Detected Not Detected [facility] Comment:Testing performed by : [facility], [address] [place]., [address] HPV HR Non 16/18 Not Detected Not Detected [facility] Comment: Interpretive Data Nucleic acid amplification for [...] this test have been verified by the [facility] Molecular Infectious Disease laboratory. Correlate with separately reported cytology results, as applicable. Interpretive data last revised 22 Testing performed by: [facility], [address] [place] [address]., [id number] Endocervical 05/23/2024 1:12 PM LEAD SCIENTIST 05/23/2024 9:23 PM LEAD SCIENTIST Narrative [facility] - 05/24/2024 6:20 AM LEAD SCIENTIST Clinical history and diagnosis->screening for cervical cancer Number of vials->1 Testing type->Screening Last menstrual period (date if known)->05/11/2024 Menstrual status->Regular us Daiana Balderas NP LAB BODY FLUIDS AND STOOLS ORD ERABLES Final Result [facility] [address] [facility] [place] [address] [facility] * Pap and High Risk HPV and Genotyping (Cytology Component) (05/23/2024 1:12 PM LEAD SCIENTIST) Thin prep (Pap test) 05/23/2024 1:12 PM LEAD SCIENTIST 05/26/2024 8:55 AM LEAD SCIENTIST Narrative PATHOLOGY [facility] - 05/30/2024 10:22 AM LEAD SCIENTIST EPIC results best viewed via link to PDF [facility] [place] [address] Note to Patients: This report may contain [...] Gender: ??F : ??1990 (Age: 34) Address: ??[address] [place] [address] ??[id number] Hospital #: ??[id number] Service: ??DEFAULT Location: ?? Patient Type: ??[facility] SPECIMEN Taken: ??05/23/2024 Received: ??05/26/2024 Accessioned: [...] this test have been verified by the [facility] Molecular Infectious Disease laboratory. Correlate with reported cytology results, as applicable. Interpretive data last revised 22 salome05/30/2024 10:22 LLOYD Hallman(ASCP) Report Electronically Reviewed and [...] clinical information and biopsy results as indicated. [facility] Clinical Laboratory Improvement Amendments (CLIA) mandate that cytologic and histologic results be correlated for laboratory quality control auditor & improvement standards. ??FOR ALL HIGH-GRADE CASES [...] determined by the Surgical Pathology Department at [facility] as part of an ongoing supplier quality manager program and in compliance with federally mandated [...] determined by the Surgical Pathology Department of [facility]. ??It has not been cleared or approved by the U. S. Food and Drug Administration. Daiana Balderas NP LAB CYTOLOGY ORDERABLES Final Result PATHOLOGY [facility] from Last 3 Months Insurance [facility] Care Teams Tetryl Wringer Operator Relationship Specialty Start Date End Date Daiana Balderas NP [address] [place] [address] [phone] PCP - General Nurse Practitioner 10/25/22
--- OUTSIDE RECORDS SUMMARY | 2024-06-12 02:51 | XMS_ITS | Encounter Summary ---
Author Organization [facility] Address [address] [place] [address] Care Team Providers Care Client Retention Specialist Name Role Phone Daiana Balderas NP Primary Care Provider [phone] Encounter Details Date Type Department Care Team (Late st Contact Info) Description 10/26/2022 Orders Only [facility] Information Management [address] [place] [id number] Scanning, Provider Social History Tobacco Use Types Packs/Day Years [...] should administer the PHQ-9) 1 02/28/2023 Comments Unknown Sex and Gender Information Value Date Recorded Sex Assigned at Not on file Legal Sex Female 11:24 AM CDT Gender Identity Not on file Sexual Orientation Not on file documented as of this encounter Plan of Treatment Not on file documented as of this encounter Procedures Procedure Name Priority Date/Time Associated Diagnosis Comments SCAN - LABS 10/26/2022 9:28 PM CDT documented in this encounter Results * SCAN - LABS (10/26/2022 9:28 PM CDT) Provider Scanning Final Result documented in this encounter Visit Diagnoses Not on filedocumented in this encounter Care Teams Client Retention Specialist Relationship Specialty Start Date End Date Daiana Balderas, ELEPHANT KEEPER [address] [place] [phone] PCP - General Nurse Practitioner 10/25/22 documented as of this encounter
--- OUTSIDE RECORDS SUMMARY | 2024-06-12 02:51 | XMS_ITS | Encounter Summary ---
Author Organization [facility] Healthcare Address [address] [place] [address] Care Team Providers Care White Metal Corrosion Proofer Name Role Phone Daiana Balderas TOBACCO FLAVORER Primary Care Provider [phone] Reason for Visit * Reason Comments Annual Exam Well woman Encounter Details Date Type Department Care Team (Latest Contact Info) Description 05/23/2024 12:30 PM COST ACCOUNTANT Office Visit [facility] [address] [phone] Daiana Balderas, TOBACCO FLAVORER [address] [address] Encounter for well woman exam with routine gynecological exam (Primary Dx); Screening for cervical cancer; CAYDEN (generalized anxiety disorder) Social History Tobacco Use Types Packs/Day Years [...] Comments Blood Pressure 112/80 05/23/2024 12:39 PM COST ACCOUNTANT Pulse 88 05/23/2024 12:39 PM COST ACCOUNTANT Temperature 36.6 ??C (97.9 ??F) 05/23/2024 1 2:39 PM COST ACCOUNTANT Respiratory Rate 16 05/23/2024 12:3 9 PM COST ACCOUNTANT Oxygen Saturation 98% 05/23/2024 12: 39 PM COST ACCOUNTANT Inhaled Oxygen Concentration - - Weight 60.3 kg (132 lb 14.4 oz) 024 12:39 PM COST ACCOUNTANT Height 170.2 cm (5' 7 ) 05/23/2024 12:3 9 PM COST ACCOUNTANT Body Mass Index 20.82 05/23/2024 12:39 PM COST ACCOUNTANT documented in this encounter Progress Notes * Daiana Balderas, TOBACCO FLAVORER - 05/23/2024 12:30 PM CST Subjective/Objective Patient ID: Mckenzie Hidalgo is a 34 y.o. female. Chief Complaint Annual Exam (Well woman) HPI Mckenzie Hidalgo is a 34 y.o. year old female who presents for a well woman exam. Well woman's annual exam: Last menstrual period/or menopause date: 05/11/2024 Irregularity of cycles: No Current using control: no Satisfaction/dissatisfaction of current method of control: Yes Cramps during menstruation: No Heavy or prolonged bleeding: No Irregular bleeding or bleeding between periods: No Vaginal discharge/itching: No Bleeding after intercourse: No Pain with intercourse: No Change in sexual desire: No Do you want to be tested for STDs: No Current breast complaints: No breast pain, mass, discharge or skin changes. Urinary problems: Patient reports no urinary health problems Calcium intake: Takes adequate calcium via diet supplementation Do you feel threatened at home, school, or socially? No 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 Reported Positive Pap Smear - (Added by [facility] Conv) Past Surgical History: Procedure Laterality Date AUGMENTATION MAMMAPLASTY Bilateral saline - age of 28 LA BREAST AUGMENTATION WITH IMPLANT Breast Surgery Enlargement Procedure With Prosthetic Implant - 01/2012 (Added by TW Conv) LA COLPOSCOPY CERVIX UPPR/ADJCNT VAGINA W/CERVIX BX Colposcopy Cervix With Biopsy(S) - 2007 (Added by TW Conv) Menstrual History: LMP 05/11/2024 Sexual History: OB History 2 Para 2 Term 2 AB Living SAB IAB Ectopic Multiple Live Births # Outcome Date GA Labor/2nd Weight Sex Type Anes PTL Lv A1 A5 1 Term 2 Term No Known Allergies Family History Problem Relation Age of Onset Hypertension Mother Hypertension - (Added by [facility]) Hypertension Father Alcohol abuse Father Diabetes type II Maternal Grandmother Type 2 Diabetes Mellitus - (Added by [employer] [facility]) Stroke Paternal Grandfather Stroke Syndrome - (Added by [employer] [facility]) Social History Tobacco Use Smoking status: Never Passive exposure: Never Smokeless tobacco: Never Substance and Sexual Activity Drug use: Never Sexual activity: None Alcohol Use: Not At Risk (05/23/2024) AUDIT-C Frequency of Alcohol Consumption: Never Average Number of Drinks: Patient does not drink Frequency of Binge Drinking: Never No current outpatient medications on file. Review of Systems Respiratory: Negative for chest tightness, shortness of breath and wheezing. Cardiovascular: Negative for chest pain and palpitations. Gastrointestinal: Negative for abdominal pain, constipation, diarrhea, nausea and vomiting. Genitourinary: Negative for difficulty urinating, flank pain, hematuria, menstrual problem, pelvic pain, urgency, vaginal bleeding, vaginal discharge and vaginal pain. Neurological: Negative for dizziness, weakness, light-headedness and headaches. Breast: Negative for tenderness, breast redness, breast discharge and lump(s). BP 112/80 (BP Location: Right arm, Patient Position: Sitting) Pulse 88 Temp 36.6 ??C (97.9 ??F)(Temporal) Resp 16 Ht 170.2 cm (5' 7 ) Wt 60.3 kg (132 lb 14.4 oz) SpO2 98% BMI 20.82 kg/m?? Physical Exam Constitutional: Appearance: Normal appearance. Eyes: Extraocular Movements: Extraocular movements intact. Neck: Vascular: No carotid bruit. Cardiovascular: Rate and Rhythm: Normal rate and regular rhythm. Pulses: Normal pulses. Heart sounds: Normal heart sounds, S1 normal and S2 normal. No murmur heard. Pulmonary: Effort: Pulmonary effort is normal. Breath sounds: Normal breath sounds. No wheezing. Abdominal: General: Bowel sounds are normal. Palpations: Abdomen is soft. Tenderness: There is no abdominal tenderness. There is no guarding or rebound. Genitourinary: General: Normal vulva. Labia: Right: No lesion. Left: No lesion. Vagina: Normal. No vaginal discharge, tenderness or bleeding. Cervix: Normal. No erythema or cervical bleeding. Uterus: Normal. Not tender. Adnexa: Right adnexa normal and left adnexa normal. Musculoskeletal: General: Normal range of motion. Cervical back: Normal range of motion and neck supple. Right lower leg: No edema. Left lower leg: No edema. Skin: General: Skin is warm and dry. Findings: No erythema. Neurological: General: No focal deficit present. Mental Status: She is alert and oriented to person, place, and time. Motor: No weakness. Gait: Gait normal. Psychiatric: Attention and Perception: Attention normal. Mood and Affect: Mood normal. Speech: Speech normal. Behavior: Behavior normal. Thought Content: Thought content normal. Assessment/Plan Diagnoses and all orders for this visit: Encounter for well woman exam with routine gynecological exam (Primary) Assessment & Plan: CBC, CMP, lipid panel,TSH UTD with stable results. Mammogram last completed: 08/2023 Pelvic exam completed in office, patient tolerated procedure well. Pap with HPV testing ordered. Vaccinations: Flu and Tdap vaccines UTD. Patient to continue in current diet and exercise routine. Repeat wellness exam in one year. Screening for cervical cancer - Pap and High Risk HPV and Genotyping (Cytology Component); Future - High Risk HPV DNA Detection with Genotyping (Molecular component); Future CAYDEN (generalized anxiety disorder) Assessment & Plan: Chronic, controlled without medication. Patient to follow up yearly. Body mass index is 20.82 kg/m??. Orders Placed This Encounter High Risk HPV DNA Detection with Genotyping (Molecular component) Standing Status: Future Number of Occurrences: 1 Standing Expiration Date: 05/23/2025 Order Specific Question: Clinical history and diagnosis Answer: screening for cervical cancer Order Specific Question: Number of vials Answer: 1 Order Specific Question: Testing type Answer: Screening Order Specific Question: Last menstrual period (date if known) Answer: 05/11/2024 Order Specific Question: Menstrual status Answer: Regular Pap and High Risk HPV and Genotyping (Cytology Component) Standing Status: Future Number of Occurrences: 1 Standing Expiration Date: 05/23/2025 Order Specific Question: Specimen type Answer: Cervical/endocervical Order Specific Question: Specimen Receiving location Answer: [facility] Order Specific Question: Clinical history and diagnosis Answer: screening for cervical cancer Order Specific Question: Number of vials Answer: 1 Order Specific Question: Testing type Answer: Screening Order Specific Question: Last menstrual period (date if known) Answer: 05/11/2024 Order Specific Question: Menstrual status Answer: Regular ACCOUNTANT documented in this encounter Miscellaneous Notes * Assessment & Plan Note - Daiana Balderas NP - 05/26/2024 6:49 AM COST ACCOUNTANT Associated Problem(s): Encounter for well woman exam with routine gynecological exam CBC, CMP, lipid panel,TSH UTD with stable results. Mammogram last completed: 08/2023 Pelvic exam completed in office, patient tolerated procedure well. Pap with HPV testing ordered. Vaccinations: Flu and Tdap vaccines UTD. Patient to continue in current diet and exercise routine. Repeat wellness exam in one year. ACCOUNTANT ACCOUNTANT * Assessment & Plan Note - Daiana Balderas NP - 05/26/2024 6:47 AM COST ACCOUNTANT Associated Problem(s): CAYDEN (generalized anxiety disorder) Chronic, controlled without medication. Patient to follow up yearly. ACCOUNTANT documented in this encounter Plan of Treatment Not on file documented as of this encounter Results * High Risk HPV DNA Detection with Genotyping (Molecular component) (05/23/2024 1:12 PM COST ACCOUNTANT) HPV HR 16 Not Detected Not Detected [facility] Comment:Testing performed by : [facility], [address] [place]., [address] HPV HR 18 Not Detected Not Detected [facility] Comment:Testing performed by : [facility], [address] [place]., [address] HPV HR Non 16/18 Not Detected Not [...] this test have been verified by the [facility] laboratory. Correlate with separately reported cytology results, as applicable. Interpretive data last revised 22 Testing performed by: [facility], [address] [place]., [address] Endocervical 05/23/2024 1:12 PM COST ACCOUNTANT 05/23/2024 9:23 PM COST ACCOUNTANT Narrative [facility] - 05/24/2024 6:20 AM COST ACCOUNTANT Clinical history and diagnosis->screening for cervical cancer Number of vials->1 Testing type->Screening Last menstrual period (date if known)->05/11/2024 Menstrual status->Regular Daiana Balderas NP LAB BODY FLUIDS AND STOOLS ORD ERABLES Final Result [facility] [address] [facility] Department [place] [address] [facility] * Pap and High Risk HPV and Genotyping (Cytology Component) (05/23/2024 1:12 PM COST ACCOUNTANT) Thin prep (Pap test) 05/23/2024 1:12 PM COST ACCOUNTANT 05/26/2024 8:55 AM COST ACCOUNTANT Narrative [facility] - 05/30/2024 10:22 AM COST ACCOUNTANT EPIC results best viewed via link to PDF [facility] [place] [address] Note to Patients: This report may contain [...] Gender: ??F : ??1990 (Age: 34) Address: ??[address] [place] [address] ??[id number] Hospital #: ??[id number] Service: ??DEFAULT Location: ?? Patient Type: ??[facility] SPECIMEN Taken: ??05/23/2024 Received: ??05/26/2024 Accessioned: ??05/26/2024 Reported: ??05/30/2024 Physician(s): ??Daiana Balderas, TOBACCO FLAVORER ?? FINAL INTERPRETATION SOURCE OF SPECIMEN ? [...] this test have been verified by the [facility] laboratory. Correlate with reported [...] clinical information and biopsy results as indicated. [facility] Clinical Laboratory Improvement Amendments (CLIA) mandate that cytologic and histologic results be correlated for laboratory quality assurance supervisor body & improvement standards. ??FOR ALL HIGH-GRADE CASES [...] determined by the Surgical Pathology Department at [facility] as part of an ongoing quality control coordinator program and in compliance with federally mandated [...] determined by the Surgical Pathology Department of [facility]. ??It has not been cleared or approved by the U. S. Food and Drug Administration. Daiana Balderas NP LAB CYTOLOGY ORDERABLES Final Result [facility] documented in this encounter Visit Diagnoses Diagnosis Encounter for well woman exam with routine gynecological exam- Primary Screening for cervical cancer Screening for malignant neoplasm of the cervix CAYDEN (generalized anxiety disorder) Generalized anxiety disorder Screening for cervical cancer Screening for malignant neoplasm of the cervix documented in this encounter Care Teams White Metal Corrosion Proofer Relationship Specialty Start Date End Date Daiana Balderas, KUMAR [address] [place] [id number] PCP - General Nurse Practitioner 10/25/22 documented as of this encounter
--- OUTSIDE RECORDS SUMMARY | 2024-06-12 02:51 | XMS_ITS | Encounter Summary ---
Author Organization [facility] Address [address] [facility] [place] [address] Care Team Providers Care Shore Man Name Role Phone Unavailable Primary Care Provider Unavailabl e Reason for Visit * Reason Comments Sore Throat X1week Cough only at night Encounter Details Date Type Department Care Team (Late st Contact Info) Description 05/09/2021 6:40 PM HELIARC WELDER Office Visit [facility] AT [address] [phone] Provider, [facility] Acute nasopharyngitis (common cold) (Primary Dx) Social History Tobacco Use Types Packs/Day Years Used Date Smoking Tobacco: Never Smokeless Tobacco: Never Sex and Gender Information Value Date Recorded Sex Assigned at Not on file Gender Identity Female 05/09/2021 6:43 PM HELIARC WELDER Sexual Orientation Not on file COVID-19 Exposure Response Date Recorded In the last month, have you been in contact with someone who was confirmed or suspected to have Coronavirus / COVID-19? No / Unsure 05/09/2021 6:35 PM HELIARC WELDER documented as of this encounter Last Filed Vital Signs Vital Sign Reading Time Taken Comments Blood Pressure 102/72 05/09/2021 6:48 PM HELIARC WELDER Pulse 96 05/09/2021 6:48 PM HELIARC WELDER Temperature 36.8 ??C (98.3 ??F) 05/09/2021 6:48 PM CS T Respiratory Rate 16 05/09/2021 6:48 PM HELIARC WELDER Oxygen Saturation 97% 05/09/2021 6:48 PM HELIARC WELDER Inhaled Oxygen Concentration - - Weight 56.7 kg (125 lb) 05/09/2021 6:48 PM HELIARC WELDER Height 170.2 cm (5' 7 ) 05/09/2021 6:48 PM HELIARC WELDER Body Mass Index 19.58 05/09/2021 6:48 PM HELIARC WELDER documented in this encounter Patient Instructions * Patient Instructions* Kerrie Batista, FEDERAL DISTRICT LAW CLERK-OPEN DIE INSPECTOR - 05/09/2021 7:52 PM HELIARC WELDER Patient Education Cold Symptoms TILE MECHANIC: Cold symptoms include sneezing, dry throat, a stuffy nose, headache, watery eyes, and a cough. Yourcough may be dry, or you may cough up mucus. You may also have muscle aches, joint pain, and tiredness. Rarely, you may have a fever. Cold symptoms occur from inflammation in your upper respiratory system caused by a virus. Most colds go away without treatment. Seek care immediately if: ?? You have increased tiredness and weakness. ?? You are unable to eat. ?? Your heart is beating much faster than usual for you. ?? You see white spots in the back of your throat and your neck is swollen and sore to the touch. ?? You see pinpoint or larger reddish-purple dots on your skin. Contact your healthcare provider if: ?? You have a fever higher than 102??F (38.9??C). ?? You have new or worsening shortness of breath. ?? You have thick nasal drainage for more than 2 days. ?? Your symptoms do not improve or get worse within 5 days. ?? You have questions or concerns about your condition or care. Treatment for cold symptoms may include NSAIDS to decrease muscle aches and fever. Cold medicines may also be given to decrease coughing, nasal stuffiness, sneezing, and a runny nose. Manage your cold symptoms: The following may help relieve cold symptoms, such as a dry throat and congestion: ?? Gargle with mouthwash or warm salt water as directed. ?? Suck on throat lozenges or hard candy. ?? Use a cold or warm vaporizer or humidifier to ease your breathing. ?? Rest for at least 2 days and then as needed to decrease tiredness and weakness. ?? Use petroleum based jelly around your nostrils to decrease irritation from blowing your nose. ?? Drink plenty of liquids. Liquids will help thin and loosen thick mucus so you can cough it up. Liquids will also keep you hydrated. Ask your healthcare provider which liquids are best for you and how much to drink each day. Prevent the spread of germs by washing your hands often. You can spread your cold germs to others for at least 3 days after your symptoms start. Do not share items, such as eating utensils. Cover your nose and mouth when you cough or sneeze using the crook of your elbow instead of your hands. Throwused tissues in the garbage. Do not smoke: Smoking may worsen your symptoms and increase the length of time you feel sick. Talk with your healthcare provider if you need help to stop smoking. Follow up with your healthcare provider as directed: Write down your questions so you remember to ask them during your visits. ?? Copyright [employer] 2020 Information is for End User's use only and may not be sold, redistributed or otherwise used for commercial purposes. All illustrations and images included in CareNotes?? are the copyrighted property of [employer] or [employer] The above information is an paid search analyst only. It is not intended as medical advice for individual conditions or treatments. Talk to your doctor, nurse or pharmacist before following any medical regimen to see if it is safe and effective for you. ARC WELDER documented in this encounter Progress Notes * Kerrie Batista APRN-CNP - 05/09/2021 7:48 PM CST [facility] Mckenzie Kuhn is a 31 year old female who presents for evaluation: Chief Complaint Patient presents with ??? Sore Throat X1week ??? Cough only at night Primary Care Physician is No primary care provider on file.. SUBJECTIVE: General The history is provided by the patient. This is a new problem. Episode onset: 1 week. The pain is moderate. Body Location: throat.Pertinent negatives include no chest pain, no abdominal pain, no headaches and no shortness of breath. Associated symptoms comments: Cough at night, mild PND. Treatmentstried: Robitussin DM. The treatment provided mild relief. Past Medical History: Diagnosis Date ??? Patient denies medical problems There is no problem list on file for this patient. No current outpatient medications on file prior to visit. No current facility-administered medications on file prior to visit. Past Surgical History: Procedure Laterality Date ??? Breast Augmentation Social History Socioeconomic History ??? Marital status: Single Spouse name: Not on file ??? Number of children: Not on file ??? Years of education: Not on file ??? Highest education level: Not on file Occupational History ??? Not on file Tobacco Use ??? Smoking status: Never Smoker ??? Smokeless tobacco: Never Used Vaping Use ??? Vaping Use: Never used Substance and Sexual Activity ??? Alcohol use: Not on file ??? Drug use: Not on file ??? Sexual activity: Not on file Other Topics Concern ??? Not on file Social History Narrative ??? Not on file Social Determinants of Health Financial Resource Strain: Not on file Food Insecurity: Not on file Transportation Needs: Not on file Physical Activity: Not on file Stress: Not on file Social Connections: Not on file Intimate Partner Violence: Not on file Housing Stability: Not on file No family history on file. No current outpatient medications on file. No current facility-administered medications for this visit. No Known Allergies REVIEW OF SYSTEMS: Review of Systems Constitutional: Negative for chills, fever and malaise/fatigue. HENT: Positive for congestion (mild) and sore throat. Negative for ear pain, hearing loss and sinuspain. Eyes: Negative for discharge and redness. Respiratory: Positive for cough. Negative for sputum production, shortness of breath, wheezing and stridor. Cardiovascular: Negative for chest pain. Gastrointestinal: Negative for abdominal pain, nausea and vomiting. Neurological: Negative for dizziness and headaches. OBJECTIVE: General appearance: alert, pleasant and in no distress. BP 102/72 (BP SITE: LEFT ARM, BP POSITION: SITTING, BP CUFF SIZE: 11) Pulse 96 Temp 98.3 ??F (36.8 ??C) (Oral) Resp 16 Ht 1.702 m (5' 7 ) Wt 56.7 kg (125 lb) SpO2 97% BMI 19.58 kg/m2 Physical Exam Vitals reviewed. HENT: Right Ear: Hearing, tympanic membrane, ear canal and external ear normal. Left Ear: Hearing, tympanic membrane, ear canal and external ear normal. Nose: Nose normal. No mucosal edema or rhinorrhea. Right Sinus: No maxillary sinus tenderness or frontal sinus tenderness. Left Sinus: No maxillary sinus tenderness or frontal sinus tenderness. Mouth/Throat: Pharynx: Uvula midline. Posterior oropharyngeal erythema present. No oropharyngeal exudate. Tonsils: No tonsillar exudate. Eyes: General: Lids are normal. Right eye: No discharge. Left eye: No discharge. Conjunctiva/sclera: Conjunctivae normal. Pupils: Pupils are equal, round, and reactive to light. Cardiovascular: Rate and Rhythm: Normal rate and regular rhythm. Heart sounds: Normal heart sounds. Pulmonary: Effort: Pulmonary effort is normal. Breath sounds: Normal breath sounds. No wheezing or rales. Lymphadenopathy: Head: Right side of head: No tonsillar adenopathy. Left side of head: No tonsillar adenopathy. Cervical: No cervical adenopathy. Skin: General: Skin is warm and dry. Neurological: Mental Status: She is alert and oriented to person, place, and time. Psychiatric: Mood and Affect: Affect normal. Judgment: Judgment normal. Recent Results (from the past 24 hour(s)) STREP A SCREEN - POINT OF CARE (AMB) STL Collection Time: 05/09/21 7:52 PM Result Value Ref Range Strep A Rapid POCT Negative Negative Strep A Internal Control Present Lot # [id number] Expiration Date 11/08/22 ASSESSMENT: Encounter Diagnosis Name Primary? Acute nasopharyngitis (common cold) Yes PLAN: Orders Placed This Encounter ??? STREP A SCREEN - POINT OF CARE (AMB) STL Order Specific Question: Release to patient Answer: Immediate I have spent a total of 20 minutes. Time was spent reviewing medical history, performing physical exam, documenting, counseling/educating, reviewing plan of care, and POC test. ARC WELDER documented in this encounter Plan of Treatment Not on file documented as of this encounter Procedures Procedure Name Priority Date/Time Associated Diagnosis Comments STREP A SCREEN - POINT OF CARE (AMB) STL Routine 05/09/2021 7:52 PM HELIARC WELDER Acute nasopharyngitis (common cold) documented in this encounter Results * STREP A SCREEN - POINT OF CARE (AMB) STL (05/09/2021 7:52 PM HELIARC WELDER) Strep A Rapid POCT Negative Negative [facility] Strep A Internal Control Present [facility] Lot # [id number] [facility] Expiration Date 11/08/22 [facility] Throat ENTIRE THROAT (SURFACE REGION OF NECK) / Unknown 05/09/2021 7:52 PM HELIARC WELDER Kerrie Batista FEDERAL DISTRICT LAW CLERK-OPEN DIE INSPECTOR LAB - POINT OF CA RE ORDERABLES [facility] [address] [phone] documented in this encounter Visit Diagnoses Diagnosis Acute nasopharyngitis (common cold)- Primary documented in this encounter
--- OUTSIDE RECORDS SUMMARY | 2024-06-12 02:51 | XMS_ITS | Encounter Summary ---
Author Organization [facility] Address [address] [facility] [place] [address] Care Team Providers Care Lobsterman Name Role Phone Daiana Balderas MD Primary Care Provider Gonsaloa erin Encounter Details Date Type Department Care Team (Latest Contact Info) Description 10/17/2023 Travel Social History Tobacco Use Types Packs/Day Years Used Date Smoking Tobacco: Never Smokeless Tobacco: Never Sex and Gender Information Value Date Recorded Sex Assigned at Not on file Gender Identity Female 05/09/2021 6:43 PM TAG PRESS OPERATOR Sexual Orientation Not on file documented as of this encounter Plan of Treatment Not on file documented as of this encounter Visit Diagnoses Not on filedocumented in this encounter Care Teams Lobsterman Relationship Specialty Start Date End Date Daiana Balderas MD PCP - General 11/02/21 documented as of this encounter
--- OUTSIDE RECORDS SUMMARY | 2024-06-12 02:51 | XMS_ITS | Encounter Summary ---
Author Organization [facility] Address [address] [facility] [address] [place] [address] Care Team Providers Care Photoengraving Retoucher Name Role Phone Daiana Balderas CUSTOMER SERVICE OPERATOR Primary Care Provider [phone] Reason for Visit * Reason Comments New Patient Encounter Details Date Type Department Care Team (Latest Contact Info) Description 02/28/2023 11:00 AM CDT Office Visit [facility] Primary Care [address] [address] Daiana Balderas, CUSTOMER SERVICE OPERATOR [address] [place] [address] School physical exam (Primary Dx); CAYDEN (generalized anxiety disorder); Fatigue, unspecified type; Screening for hyperlipidemia Social History Tobacco Use Types Packs/Day Years [...] Sign Reading Time Taken Comments Blood Pressure 92/64 02/28/2023 10:54 AM CDT Pulse 83 02/28/2023 10:54 AM CDT Temperature 36.8 ??C (98.2 ??F) 02/28/2023 10:54 AM C DT Respiratory Rate 16 02/28/2023 10:54 AM CDT Oxygen Saturation 98% 02/28/2023 10:54 AM CDT Inhaled Oxygen Concentration - - Weight 58.7 kg (129 lb 4.8 oz) 02/28/2023 10:54 AM CDT Height 170.2 cm (5' 7.01 ) 02/28/2023 10:54 AM C DT Body Mass Index 20.25 02/28/2023 10:54 AM CDT documented in this encounter Progress Notes * Daiana Balderas, CUSTOMER SERVICE OPERATOR - 02/28/2023 11:00 AM CDT Subjective/Objective Patient ID: Mckenzie Perez is a 33 y.o. female. Chief Complaint New Patient HPI Mckenzie Perez is a 33 y.o. year old female who presents for annual physical exam and to establish care. She is currently in grad school for radiation therapy, she is to start clinicals next semester and needs a physical. She reports her MMR vaccine is UTD but is requesting titers be drawn for Varicella since she never received the vaccine. Patient has history of anxiety, currently takes no medications, controls her anxiety with exercise. She is a non smoker and does not drink alcohol. 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 Reported Positive Pap Smear - (Added by TW Conv) Past Surgical History: Procedure Laterality Date TN BREAST AUGMENTATION WITH IMPLANT Breast Surgery Enlargement Procedure With Prosthetic Implant - 01/2012 (Added by TW Conv) TN COLPOSCOPY CERVIX UPPR/ADJCNT VAGINA W/CERVIX BX Colposcopy Cervix With Biopsy(S) - 2007 (Added by TW Conv) No Known Allergies Family History Problem Relation Age of Onset Hypertension Mother Hypertension - (Added by TW Conv) Hypertension Father Alcohol abuse Father Diabetes type II Maternal Grandmother Type 2 Diabetes Mellitus - (Added by TW Conv) Stroke Paternal Grandfather Stroke Syndrome - (Added by TW Conv) Social History Tobacco Use Smoking status: Never Passive exposure: Never Smokeless tobacco: Never Substance and Sexual Activity Drug use: Never Sexual activity: None Alcohol Use: Not At Risk (02/28/2023) AUDIT-C Frequency of Alcohol Consumption: Never Average Number of Drinks: Patient does not drink Frequency of Binge Drinking: Never No current outpatient medications on file. Review of Systems Constitutional: Positive for fatigue. Negative for chills and fever. Eyes: Negative for pain and visual disturbance. Respiratory: Negative for apnea, chest tightness, shortness of breath and wheezing. Cardiovascular: Negative for chest pain, palpitations and leg swelling. Gastrointestinal: Negative for abdominal pain, constipation, diarrhea, nausea and vomiting. Endocrine: Negative for cold intolerance and heat intolerance. Musculoskeletal: Negative for arthralgias, gait problem and myalgias. Skin: Negative for color change. Neurological: Negative for dizziness, syncope, speech difficulty, weakness, light-headedness, numbness and headaches. Psychiatric/Behavioral: Negative for behavioral problems, confusion, decreased concentration, dysphoric mood and sleep disturbance. The patient is nervous/anxious. BP 92/64 (BP Location: Right arm, Patient Position: Sitting) Pulse 83 Temp 36.8 ??C (98.2 ??F) (Temporal) Resp 16 Ht 170.2 cm (5' 7.01 ) Wt 58.7 kg (129 lb 4.8 oz) LMP 02/05/2023 (Approximate) SpO2 98% BMI 20.25 kg/m?? Physical Exam Constitutional: Appearance: Normal appearance. HENT: Head: Normocephalic. Right Ear: Tympanic membrane, ear canal and external ear normal. Left Ear: Tympanic membrane, ear canal and external ear normal. Nose: Nose normal. Right Sinus: No maxillary sinus tenderness or frontal sinus tenderness. Left Sinus: No maxillary sinus tenderness or frontal sinus tenderness. Mouth/Throat: Mouth: Mucous membranes are moist. Pharynx: Oropharynx is clear. Eyes: Extraocular Movements: Extraocular movements intact. Pupils: Pupils are equal, round, and reactive to light. Neck: Thyroid: No thyromegaly or thyroid tenderness. Vascular: No carotid bruit. Trachea: Trachea normal. Cardiovascular: Rate and Rhythm: Normal rate and regular rhythm. Pulses: Normal pulses. Heart sounds: Normal heart sounds, S1 normal and S2 normal. No murmur heard. Pulmonary: Effort: Pulmonary effort is normal. Breath sounds: Normal breath sounds. No wheezing. Abdominal: General: Abdomen is flat. Bowel sounds are normal. Palpations: Abdomen is soft. Tenderness: There is no abdominal tenderness. There is no guarding. Musculoskeletal: General: Normal range of motion. Cervical back: Normal range of motion and neck supple. Right lower leg: No edema. Left lower leg: No edema. Lymphadenopathy: Cervical: No cervical adenopathy. Right cervical: No superficial, deep or posterior cervical adenopathy. Left cervical: No superficial, deep or posterior cervical adenopathy. Skin: General: Skin is warm [...] Diagnoses and all orders for this visit: School physical exam (Primary) Comments: Patient presents with normal physical exam. CBC, CMP, and Varicella Titers ordered. Due for flu vaccine and possibly varicella vaccines if titers are low. Orders: - CBC with auto differential; Future - Comprehensive metabolic panel; Future - Varicella Zoster IgG antibody Blood; Future CAYDEN (generalized anxiety disorder) Comments: Chronic, stable controlled with exercise. Fatigue, unspecified type Comments: TSH ordered. Orders: - TSH reflex to free T4; Future Screening for hyperlipidemia Comments: Lipid panel ordered. Orders: - Lipid panel; Future Orders Placed This Encounter Varicella Zoster IgG antibody Blood Standing Status: Future Number of Occurrences: 1 Standing Expiration Date: 02/29/2024 CBC with auto differential Standing Status: Future Number of Occurrences: 1 Standing Expiration Date: 02/29/2024 Comprehensive metabolic panel Standing Status: Future Number of Occurrences: 1 Standing Expiration Date: 02/29/2024 Lipid panel Standing Status: Future Number of Occurrences: 1 Standing Expiration Date: 02/29/2024 TSH reflex to free T4 Standing Status: Future Number of Occurrences: 1 Standing Expiration Date: 02/29/2024 documented in this encounter Miscellaneous Notes * Result Encounter Note - Daiana Balderas NP - 03/09/2023 10:02 AM CDT Please call patient all her blood work is normal. Her varicella antibody is positive she does not need a booster on the varicella vaccine. documented in this encounter Plan of Treatment Not on file documented as of this encounter Procedures Procedure Name Priority Date/Time Associated Diagnosis Comments THYROID FUNCTION CASCADE Routine 03/07/2023 8:15 AM CDT Fatigue, unspecified type CBC WITH AUTO DIFFERENTIAL Routine 03/07/2023 8:15 AM CDT School physical exam VARICELLA ZOSTER ANTIBODY, IGG Routine 03/07/2023 8:15 AM CDT School physical exam LIPID PANEL Routine 03/07/2023 8:15 AM CDT Screening for hyperlipidemia COMPREHENSIVE METABOLIC PANEL Routine 03/07/2023 8:15 AM CDT School physical exam documented in this encounter Results * Varicella Zoster IgG antibody Blood (03/07/2023 8:15 AM CDT) VZV IgG 589.20 index [facility] Comment: ? Index ? Interpretation ? --------- ?<135.00 ?Negative - Antibody not detected ?135.00 - 164.99 ?Equivocal ?> or = 165.00 ?Positive - Antibody detected ?A positive result indicates that the patient ?has antibody to VZV but does not differentiate ?between an active or past infection. ?The clinical diagnosis must be interpreted in ?conjunction with the clinical signs and symptoms of ?the patient. This assay reliably measures immunity ?due to previous infection but may not be ?sensitive enough to detect antibodies induced by ?vaccination. Thus, a negative result in a vaccinated ?individual does not necessarily indicate ?susceptibility to VZV infection. A more sensitive ?test for vaccination-induced immunity is Varicella ?Zoster Virus Antibody Immunity Screen, ACIF. Blood 03/07/2023 8:15 AM CDT 03/07/2023 8:16 AM CDT Narrative [facility] - 03/08/2023 2:44 PM CDT FASTING:YES FASTING: YES Daiana Balderas NP LAB MICROBIOLOGY - GENERAL ORD ERABLES Final Result Performing Organization Address [facility] de Phone Number [facility] [address] [place] [address] * TSH reflex to free T4 (03/07/2023 8:15 AM CDT) TSH 1.62 mIU/L [facility] [employer] Comment: ?Reference Range ?> or = 20 Years ??0.40-4.50 ? Ranges ?First trimester ?0.26-2.66 ?Second trimester ?? 0.55-2.73 ?Third trimester ?0.43-2.91 Blood 03/07/2023 8:15 AM CDT 03/07/2023 8:16 AM CDT Narrative [facility] - 03/08/2023 2:44 PM CDT FASTING:YES FASTING: YES Daiana Balderas NP LAB BLOOD ORDERABLES Final Res ult Performing Organization Address [facility] de Phone Number MILAD Jacobs [address] [facility] [place] [address] * (ABNORMAL) Lipid panel (03/07/2023 8:15 AM CDT) Cholesterol 173 <200 mg/dL [facility] HDL 47(L) > OR = 50 mg/dL Mil[facility] Triglycerides 90 <150 mg/dL [facility] LDL 108(H) mg/dL (calc) Milad Mult[facility] Comment: Reference range: <100 Desirable range <100 mg/dL for primary prevention; ?? <70 mg/dL for patients with CHD or diabetic patients with > or = 2 CHD risk factors. LDL-C is now calculated using the Gilbert calculation, which is a validated novel method providing better accuracy than the Friedewald equation in the estimation of LDL-C. Hermelindo BURROUGHS et al. DANIEL. 2013;310(19): 6872-4150 (http://education.2Checkout/faq/ABN089) Chol/HDL ratio 3.7 <5.0 (calc) Milad [facility] Non-HDL, (LDL+VLDL) 126 <130 mg/dL (calc) Milad [facility] Comment: For patients with diabetes plus 1 major ASCVD risk factor, treating to a non-HDL-C goal of <100 mg/dL (LDL-C of <70 mg/dL) is considered a therapeutic option. Blood 03/07/2023 8:15 AM CDT 03/07/2023 8:16 AM CDT Narrative [facility] - 03/08/2023 2:44 PM CDT FASTING:YES FASTING: YES us Daiana Balderas NP LAB BLOOD ORDERABLES Final Res ult [facility] [address] [place] [address] * Comprehensive metabolic panel (03/07/2023 8:15 AM CDT) Glucose 77 65 - 99 mg/dL Milad To[facility] Comment: ? Fasting reference interval BUN 14 7 - 25 mg/dL [facility] To-[facility] Creatinine 0.80 0.50 - 0.97 mg/dL Mil[facility] To[facility] eGFR 98 > OR = 60 mL/min/1.7 3m2 [facility] To-[facility] BUN/creat ratio SEE NOTE: - (calc) Milad To[facility] Comment: ?? Not Reported: BUN and Creatinine are within ?? reference range. ? Sodium 136 135 - 146 mmol/L Milad To-[facility] Potassium, pl 4.7 3.5 - 5.3 mmol/L Milad To[facility] Chloride 104 98 - 110 mmol/L Milad oT-Dakotah Cunningham CO2 28 20 - 32 mmol/L Mil[facility] Calcium 9.2 8.6 - 10.2 mg/dL Mil[facility] Protein, sr 7.1 6.1 - 8.1 g/dL Mil[facility] To[facility] Albumin 4.2 3.6 - 5.1 g/dL Mil[facility] To[facility] GLOBULIN 2.9 1.9 - 3.7 g/dL (calc) Milad To-[facility] Alb/glob ratio 1.4 1.0 - 2.5 (calc) Milad To-[facility] Bilirubin, total 0.4 0.2 - 1.2 mg/dL Mil[facility] To[facility] Alk phos 49 31 - 125 U/L Mil[facility] To-[facility] AST 12 10 - 30 U/L Milad To-Dakotah [facility] ALT (SGPT) 8 6 - 29 U/L [facility] Blood 03/07/2023 8:15 AM CDT 03/07/2023 8:16 AM CDT Narrative [facility] - 03/08/2023 2:44 PM CDT FASTING:YES FASTING: YES us Daiana Balderas NP LAB BLOOD ORDERABLES Final Res ult MILAD [facility] [address] [place] [address] * (ABNORMAL) CBC with auto differential (03/07/2023 8:15 AM CDT) WBC 7.1 3.8 - 10.8 Thousand/u L [facility] RBC, POC 4.44 3.80 - 5.10 Million/uL [facility] Hgb 12.7 11.7 - 15.5 g/dL [facility] Hct 39.8 35.0 - 45.0 % [facility] MCV 89.6 80.0 - 100.0 fL [facility] MCH 28.6 27.0 - 33.0 pg [facility] MCHC 31.9(L) 32.0 - 36.0 g/dL [facility] Rdw 13.4 11.0 - 15.0 % [facility] Platelets 342 140 - 400 Thousand/u L [facility] MPV 10.9 7.5 - 12.5 fL [facility] Neutrophils, abs 4,132 1,500 - 7,800 cells/uL [facility] Lymphocytes, abs 2,315 850 - 3,900 cells/uL [facility] Monocyte abs 426 200 - 950 cells/uL [facility] Eosinophils, abs 163 15 - 500 cells/uL [facility] Basophils, abs 64 0 - 200 cells/uL [facility] Neutrophils 58.2 % [facility] Lymphocyte pct 32.6 % [facility] Monocytes 6.0 % [facility] Eosinophils 2.3 % [facility] Basophils 0.9 % [facility] Blood 03/07/2023 8:15 AM CDT 03/07/2023 8:16 AM CDT Narrative [facility] - 03/08/2023 2:44 PM CDT FASTING:YES FASTING: YES us Daiana Balderas NP LAB BLOOD ORDERABLES Final Res ult MILAD To[facility] [address] [place] [address] documented in this encounter Visit Diagnoses Diagnosis School physical exam- Primary Health examination of defined subpopulation CAYDEN (generalized anxiety disorder) Generalized anxiety disorder Fatigue, unspecified type Screening for hyperlipidemia Screening for lipoid disorders documented in this encounter Care Teams Photoengraving Retoucher Relationship Specialty Start Date End Date Daiana Balderas, KUMAR [facility] [address] PCP - General Nurse Practitioner 10/25/22 documented as of this encounter
--- OUTSIDE RECORDS SUMMARY | 2024-06-12 02:51 | XMS_ITS | Encounter Summary ---
Author Organization [facility] Healthcare Address [address] [place] [address] Care Team Providers Care Vice President Regulatory Name Role Phone No, Physician Primary Care Provider [phone] aDiana Balderas NP Primary Care Provider [phone] Encounter Details Date Type Department Care Team (Late st Contact Info) Description 08/26/2021 Orders Only [facility] Health Information Management [address] [place] [address] Scanning, Provider Social History Tobacco Use Types Packs/Day Years Used Date Smoking Tobacco: Never Assessed AUDIT-C Answer Date Recorded Q1: How often [...] Date/Time Associated Diagnosis Comments SCAN - LABS 08/26/2021 documented in this encounter Results * SCAN - LABS (08/26/2021) us Provider Scanning Edited Result - Final documented in this encounter Visit Diagnoses Not on filedocumented in this encounter Care Teams Vice President Regulatory Relationship Specialty Start Date End Date No, Physician PCP - General 09/22/22 10/24/22 Daiana Balderas, ROLLWAY WORKER [address] [place] [address] PCP - General Nurse Practitioner 10/25/22 documented as of this encounter
--- OUTSIDE RECORDS SUMMARY | 2024-06-12 02:51 | XMS_ITS | Encounter Summary ---
Author Organization [facility] Healthcare Address [address] [place] [address] Care Team Providers Care Sand Car Worker Name Role Phone Daiana Balderas NP Primary Care Provider [phone] Reason for Visit * Reason Comments PPD Placement Encounter Details Date Type Department Care Team (Latest Contact Info) Description 12/19/2023 2:00 PM CDT Clinical Support [facility] Medical Group Primary Care [address] [facility] [address] [place] [address] PPD screening test (Primary Dx) [...] as of this encounter Progress Notes * Kimi Post MA - 12/19/2023 2:00 PM CDT Patient here this afternoon for IPPD. Advised patient that she needs to come back on Sunday after 2pm to have TB read documented in this encounter Plan of Treatment Not on file documented as of this encounter Procedures Procedure Name Priority Date/Time Associated Diagnosis Comments PPD TEST Routine 12/21/2023 2:32 PM CDT PPD screening test documented in this encounter Results * PPD Test (12/21/2023 2:32 PM CDT) TB Skin Test Negative Negative Induration 0 mm Other 12/21/2023 2:32 PM CDT Daiana Balderas NP POINT OF CARE TEST ORDERABLES Final Result documented in this encounter Visit Diagnoses Diagnosis PPD screening test- Primary Screening examination for pulmonary tuberculosis documented in this encounter Care Teams Sand Car Worker Relationship Specialty Start Date End Date Daiana Balderas, KUMAR [address] [place] [address] PCP - General Nurse Practitioner 10/25/22 documented as of this encounter
--- OUTSIDE RECORDS SUMMARY | 2024-06-12 02:51 | XMS_ITS | Encounter Summary ---
Author Organization [facility] Address [address] [place] [address] Care Team Providers Care Matrix Bath Operator Name Role Phone Daiana Balderas COVERING AND LINING SUPERVISOR Primary Care Provider [phone] Reason for Referral * Diagnostic Imaging (Routine) - Closed Specialty Diagnoses / Procedures Referred By Zeynep t Referred To Contact Diagnoses Mass of upper outer quadrant of right breast Procedures US Breast Right Limited Daiana Balderas NP [address] [place] [address] Phone: tel: fax: [address] [address] Referral ID Status Reason Start Date Expiration Date Visits Re quested Visits Authorized [id number] Closed 07/12/2023 08/10/2024 1 1 ERTY STAFF ACCOUNTANT Reason for Visit * Diagnostic Imaging (Routine) - Closed Specialty Diagnoses / Procedures Referred By Contac t Referred To Contact Diagnoses Mass of upper outer quadrant of right breast Procedures US Breast Right Limited Daiana Balderas NP [address] [place] [address] Phone: tel: fax: [address] [address] Referral ID Status Reason Start Date Expiration Date Visits Re quested Visits Authorized [id number] Closed 07/12/2023 08/10/2024 1 1 Encounter Details Date Type Department Care Team (Latest Contact Info) Description 08/14/2023 2:00 PM PROPERTY STAFF ACCOUNTANT - 08/14/2023 11:59 PM PROPERTY STAFF ACCOUNTANT Hospital Encounter [facility] Medical Office Bldg 1 Breast [facility] [address] [facility] [address] [place] [address] Mass of upper outer quadrant of right breast Discharge Disposition: Discharge to home or self [...] Procedure Name Priority Date/Time Associated Diagnosis Comments US BREAST RIGHT LIMITED Schedule Routine, Read Routine (OP Routine) 08/14/2023 2:55 PM PROPERTY STAFF ACCOUNTANT Mass of upper outer quadrant of right breast documented in this encounter Results * US Breast Right Limited (08/14/2023 2:55 PM PROPERTY STAFF ACCOUNTANT) Anatomical Region Laterality Modality Breast Right Ultrasound 08/14/2023 3:00 PM PROPERTY STAFF ACCOUNTANT Narrative 08/14/2023 3:02 PM PROPERTY STAFF ACCOUNTANT EXAM DESCRIPTION: ?? US BREAST RIGHT LIMITED; [...] PM T: ??08/14/2023 3:02 PM Report ID: [id number] Reading Location: ??MAMMM[facility] us Daiana Balderas NP IMG MAMMO PROCEDURES Final Res ult documented in this encounter Visit Diagnoses Diagnosis Mass of upper outer quadrant of right breast documented in this encounter Care Teams Matrix Bath Operator Relationship Specialty Start Date End Date Daiana Balderas NP [address] [place] [address] PCP - General Nurse Practitioner 10/25/22 documented as of this encounter
--- OUTSIDE RECORDS SUMMARY | 2024-06-12 02:51 | XMS_ITS | Clinical Summary ---
Author Organization [facility]sp[facility] Address [address] [place] [address] Care Team Providers Care Clerical Administrative Assistant Name Role Phone Daiana Balderas NP Primary Care Provider [phone] Allergies No known active allergies Medications No known medications Active Problems Problem Noted Date Diagnosed Date Encounter for well woman girma m with routine gynecological exam 05/23/2024 Assessment & Plan (05/26/2024 6:49 AM TIE MILL OPERATOR): CBC, CMP, lipid panel,TSH UTD with stable results. Mammogram last completed: 08/2023 Pelvic exam completed in office, patient tolerated procedure well. Pap with HPV testing ordered. Vaccinations: Flu and Tdap vaccines UTD. Patient to continue in current diet and exercise routine. Repeat wellness exam in one year. CAYDEN (generalized anxiety disorder) 02/28/2023 Assessment & Plan (05/26/2024 6:47 AM TIE MILL OPERATOR): Chronic, controlled without medication. Patient to follow up yearly. 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 Encounters Date Type Department Care Team Description 06/06/2024 Telephone [facility] Primary Care [address] [facility] [address] [place] [address] Daiana Balderas, KUMAR Recommendation Request 05/23/2024 3:51 PM TIE MILL OPERATOR - 05/23/2024 11:59 PM TIE MILL OPERATOR Hospital Encounter [facility] [address] [place] [address] Screening for cervical cancer Discharge Disposition: Discharge to home or self care 05/23/2024 12:30 PM TIE MILL OPERATOR Office Visit [facility] Primary Care [facility] [facility] [address] [place] [address] Daiana Balderas, BEAD WIRE TAPER Encounter for well woman exam with routine gynecological exam (Primary Dx); Screening for cervical cancer; CAYDEN (generalized anxiety disorder) from Last 3 Months Immunizations Name Administration Dates Next Due Influenza, Quadrivalent, Spl it, Intramuscular 04/17/2019 Influenza, Quadrivalent, Spl it, Preservative Free, Intramuscular 04/17/2019 Influenza, Trivalent, IM (MDV) 05/11/2019 Influenza, Unspecified 03/11/2024,2022(Deferred: Other),04/11/2022(Deferred: Other) PPD TEST 12/28/2023,12/19/2023 Tdap 09/26/2018 Surgical History Surgery Date Site/Laterality Comments [place] BREAST AUGMENTATION WITH IMPLANT Breast Surgery Enlargement Procedure With Prosthetic Implant - 01/2012 (Added by TW Conv) [place] COLPOSCOPY CERVIX UPPR/AD JCNT VAGINA W/CERVIX BX Colposcopy Cervix With Biopsy(S) - 2007 (Added by TW Conv) AUGMENTATION MAMMAPLASTY Bilateral saline - age of 28 Medical History Medical History Date Comments Other abnormal Papanicolaou smear of vagina and vaginal HPV Reported Positive Pap Smear - (Added by TW Conv) Family History Medical History Relation Name Comments Alcohol abuse Father Hypertension Father Diabetes type II Maternal Grandmother Typ e 2 Diabetes Mellitus - (Added by TW Conv) Hypertension Mother Hypertension - (Added by TW Conv) Stroke Paternal Grandfather Stroke Syndrome - (Added by TW Conv) Relation Name Status Comments Father Alive Maternal Grandmother Mother Alive Paternal Grandfather Social History Tobacco Use Types Packs/Day Years [...] on file Sexual Orientation Not on file Obstetrics History Para Term AB IAB SAB Ectopic Multiple Livin g Live Births 2 2 2 Date Outcome GA Total Labor Labor/2nd/3rd Weight Sex Type Anes PTL [place] A1 A5 Name Clin Term Term Last Filed Vital Signs Vital Sign Reading Time Taken Comments Blood Pressure 112/80 05/23/2024 12:39 PM TIE MILL OPERATOR Pulse 88 05/23/2024 12:39 PM TIE MILL OPERATOR Temperature 36.6 ??C (97.9 ??F) 05/23/2024 1 2:39 PM TIE MILL OPERATOR Respiratory Rate 16 05/23/2024 12:3 9 PM TIE MILL OPERATOR Oxygen Saturation 98% 05/23/2024 12: 39 PM TIE MILL OPERATOR Inhaled Oxygen Concentration - - Weight 60.3 kg (132 lb 14.4 oz) 024 12:39 PM TIE MILL OPERATOR Height 170.2 cm (5' 7 ) 05/23/2024 12:3 9 PM TIE MILL OPERATOR Body Mass Index 20.82 05/23/2024 12:39 PM TIE MILL OPERATOR Plan of Treatment Health Maintenance Due Date Last Done Comments Hepatitis C Screening 1990 Hepatitis B Screening 01/18/2006 Pneumococcal vaccine <65 (1 of 2 - PCV) 05/05/2025 Postponed from 01/18/1994 (Patient declined, but will receive in the future) Cervical Cancer Screening 05/23/20252023, 05/23/2024, 05/26/2020 Covid-19 Vaccine ( season) 2025 03/10/2021, 02/17/2021 Postponed from 02/10/2024 (Patient declined, but will receive in the future) Depression Screening 05/23/2025 05/23/2024, 02/28/2023, 02/28/2023 Regular Well Visit/Exam 18-64 05/23/2025 05/23/2024, 05/23/2024, 02/28/2023 Varicella Vaccines (1 of 2 - 13+ 2-dose series) 05/24/2025 Postponed from 01/18/2001 (Patient declined, but will receive in the future) DTaP/Tdap/Td Vaccine (2 - Td or Tdap) 09/26/2028 09/26/2018 Influenza Vaccine Completed 03/11/2024, , 04/17/2019, Additional history exists HPV Vaccines Aged Out No longer eligi ble based on patient's age to complete this topic Procedures Procedure Name Priority Date/Time Associated Diagnosis Comments PAP AND HIGH RISK HPV, REFLEX TO GENOTYPING Routine 05/23/2024 1:12 PM TIE MILL OPERATOR Screening for cervical cancer HIGH RISK HPV DNA DETECTION WITH GENOTYPING Routine 05/23/2024 1:12 PM TIE MILL OPERATOR Screening for cervical cancer from Last 3 Months Results * High Risk HPV DNA Detection with Genotyping (Molecular component) (05/23/2024 1:12 PM TIE MILL OPERATOR) HPV HR 16 Not Detected Not Detected [facility] Comment:Testing performed by : [facility], [address] [place] [address] HPV HR 18 Not Detected Not Detected [facility] Comment:Testing performed by : [facility], [address] [place] [address] HPV HR Non 16/18 Not Detected Not [...] this test have been verified by the [facility] Molecular Infectious Disease laboratory. Correlate with separately reported cytology results, as applicable. Interpretive data last revised 22 Testing performed by: [facility], [address] [place]., [address] Endocervical 05/23/2024 1:12 PM TIE MILL OPERATOR 05/23/2024 9:23 PM TIE MILL OPERATOR Narrative [facility] - 05/24/2024 6:20 AM TIE MILL OPERATOR Clinical history and diagnosis->screening for cervical cancer Number of vials->1 Testing type->Screening Last menstrual period (date if known)->05/11/2024 Menstrual status->Regular Daiana Balderas NP LAB BODY FLUIDS AND STOOLS ORD ERABLES Final Result [facility] [address] [facility] Department [place] [address] [facility] * Pap and High Risk HPV and Genotyping (Cytology Component) (05/23/2024 1:12 PM TIE MILL OPERATOR) Thin prep (Pap test) 05/23/2024 1:12 PM TIE MILL OPERATOR 05/26/2024 8:55 AM TIE MILL OPERATOR Narrative PATHOLOGY [facility] - 05/30/2024 10:22 AM TIE MILL OPERATOR EPIC results best viewed via link to PDF [facility] [place] [address] Note to Patients: This report may contain [...] the details. CYTOPATHOLOGY REPORT FINAL Patient Name: ??MAUREEN HIDALGOSumanth Gender: ??F : ??1990 (Age: 34) Address: ??[address] [place] [address] ??[id number] Hospital #: ??[id number] Service: ??DEFAULT Location: ?? Patient Type: ??[facility] SPECIMEN Taken: ??05/23/2024 Received: ??05/26/2024 [...] this test have been verified by the [facility] laboratory. Correlate with reported [...] clinical information and biopsy results as indicated. [facility] Clinical Laboratory Improvement Amendments (CLIA) mandate that cytologic and histologic results be correlated for laboratory quality assurance monitor final & improvement standards. ??FOR ALL HIGH-GRADE CASES [...] determined by the Surgical Pathology Department at [facility] as part of an ongoing air quality engineer program and in compliance with federally mandated [...] determined by the Surgical Pathology Department of [facility]. ??It has not been cleared or approved by the U. S. Food and Drug Administration. Daiana Balderas NP LAB CYTOLOGY ORDERABLES Final Result PATHOLOGY [facility] from Last 3 Months Insurance [facility] Care Teams Clerical Administrative Assistant Relationship Specialty Start Date End Date Daiana Balderas NP [address] [place] [address] PCP - General Nurse Practitioner 10/25/22
--- OUTSIDE RECORDS SUMMARY | 2024-06-12 02:51 | XMS_ITS | Encounter Summary ---
Author Organization [facility] Healthcare Address [address] [place] [address] Care Team Providers Care Sprinkling System Irrigator Name Role Phone Daiana Balderas INSTRUMENT LENS INSPECTOR Primary Care Provider [phone] Reason for Visit * Reason Onset Date Comments Additional Services Or Orders 12/18/2023 Encounter Details Date Type Department Care Team ([facility] st Contact Info) Description 12/18/2023 Telephone [facility] Medical Group Primary Care [address] [facility] [address] [place] [address] Daiana Balderas, INSTRUMENT LENS INSPECTOR [address] [address] Additional Services Or Orders Social History Tobacco Use Types Packs/Day Years [...] encounter Miscellaneous Notes * Telephone Encounter - Maritza Rodríguez - 12/19/2023 9:02 AM CDT Read Message/kac * Telephone Encounter - Danyell De Jesus - 12/19/2023 8:59 AM CDT Call Back Caller???s Concern: patient is returning a missed call from Rasheeda. ORIGINATION SPECIALIST advised patient of Rasheeda's message and went over the walk-in hours for TB testes, advised her they're not done on , she understood. Does message need to be routed? Yes-Action Needed * Telephone Encounter - Maritza Rodríguez - 12/19/2023 8:49 AM CDT LM @ 8:49am on Mckenzie's cell, informing her of Walk In hrs and NO Thurs for Tb Skin Test/kac * Telephone Encounter - Sherry Aguillon MA - 12/18/2023 4:57 PM CDT She can come any day except for nurse visit for TB test. * Telephone Encounter - Maritza Rodríguez - 12/18/2023 3:01 PM CDT If you explain how this is done, I can call patient to let her know. Rasheeda Kelly * Telephone Encounter - Mounika Villegas - 12/18/2023 2:40 PM CDT Additional Services or Orders Type of Service Requested:Testing Reason for Request (e.g. condition/symptom, date of COVID exposure if applicable): TB two step Details Regarding Additional Services (e.g. type of home health, type of equipment, type of test, etc.): Needs completed for school Where will services be performed? (if outside of the practice, facility name, address, phone/fax offacility): PCP office Additional Comments: Needs completed by January 09, 2024 but patient would like to be seen and get this completed as soon as able. Does message need to be routed? Yes-Action Needed documented in this encounter Plan of Treatment Not on file documented as of this encounter Visit Diagnoses Not on filedocumented in this encounter Care Teams Sprinkling System Irrigator Relationship Specialty Start Date End Date Daiana Balderas, KUMAR [address] [place] [id number] PCP - General Nurse Practitioner 10/25/22 documented as of this encounter
--- OUTSIDE RECORDS SUMMARY | 2024-06-12 02:51 | XMS_ITS | Encounter Summary ---
Author Organization [facility] Healthcare Address [address] [place] [address] Care Team Providers Care Head Of Digital Advertising & Integration Name Role Phone Daiana Balderas NP Primary Care Provider [phone] Reason for Visit * Reason Comments TB Test Encounter Details Date Type Department Care Team (Latest Contact Info) Description 12/28/2023 9:00 AM CDT Clinical Support [facility] Medical Group Primary Care [address] [facility] [address] [place] [address] PPD screening test (Primary Dx) [...] Progress Notes * Sherry Aguillon MA - 12/28/2023 9:00 AM CDT Patient is here for PPD test documented in this encounter Plan of Treatment Not on file documented as of this encounter Procedures Procedure Name Priority Date/Time Associated Diagnosis Comments PPD TEST Routine 12/31/2023 8:35 AM CDT PPD screening test documented in this encounter Results * PPD Test (12/31/2023 8:35 AM CDT) TB Skin Test Negative Negative Induration 0 mm Other 12/31/2023 8:35 AM CDT Daiana Balderas NP POINT OF CARE TEST ORDERABLES Final Result documented in this encounter Visit Diagnoses Diagnosis PPD screening test- Primary Screening examination for pulmonary tuberculosis documented in this encounter Care Teams Head Of Digital Advertising & Integration Relationship Specialty Start Date End Date Daiana Balderas, MOLDER FITTING [address] [place] [id number] PCP - General Nurse Practitioner 10/25/22 documented as of this encounter
--- OUTSIDE RECORDS SUMMARY | 2024-06-12 02:51 | XMS_ITS | Encounter Summary ---
Author Organization [facility] Healthcare Address [address] [place] [address] Care Team Providers Care Security Operations Specialist Name Role Phone Daiana Balderas RESERVOIR ENGINEER Primary Care Provider [phone] Reason for Visit * Diagnostic Imaging (Routine) - Pending Review Specialty Diagnoses / Procedures Referred By Zeynep cifuentes Referred To Contact Diagnoses Mass of upper outer quadrant of right breast Procedures Diagnostic Mammogram Bilateral W Jt W Implants Diagnostic Mammogram Bilateral W Jt Daiana Balderas, KUMAR [address] [place] [address] Phone: tel: fax: [address] [address] Referral ID Status Reason Start Date Expiration Date V isits Requested Visits Authorized [id number] Pending Review 08/14/2023 09/12/2024 1 1 Encounter Details Date Type Department Care Team (Latest Contact Info) Description 08/14/2023 2:15 PM LEGAL ASSOCIATE - 08/14/2023 11:59 PM LEGAL ASSOCIATE Hospital Encounter [facility] Medical Office Bld[facility] [address] [facility] [address] [place] [address] Mass of upper outer quadrant of [...] Procedure Name Priority Date/Time Associated Diagnosis Comments DIAGNOSTIC MAMMOGRAM BILATERAL W JT W IMPLANTS Schedule Routine, Read Routine (OP Routine) 08/14/2023 2:40 PM LEGAL ASSOCIATE Mass of upper outer quadrant of right breast documented in this encounter Results * Diagnostic Mammogram Bilateral W Jt W Implants (08/14/2023 2:40 PM LEGAL ASSOCIATE) Anatomical Region Laterality Modality Breast Bilateral Mammography 08/14/2023 3:00 PM LEGAL ASSOCIATE Narrative 08/14/2023 3:02 PM LEGAL ASSOCIATE EXAM DESCRIPTION: ?? US BREAST RIGHT LIMITED; DIAGNOSTIC MAMMOGRAM BILATERAL W JT W IMPLANTS REASON FOR STUDY: 33-year-old woman [...] PM T: ??08/14/2023 3:02 PM Report ID: [id number] Reading Location: ??[facility] us Daiana Balderas NP IMG MAMMO PROCEDURES Final Res ult documented in this encounter Visit Diagnoses Diagnosis Mass of upper outer quadrant of right breast documented in this encounter Care Teams Security Operations Specialist Relationship Specialty Start Date End Date Daiana Balderas NP [address] [place] [address] PCP - General Nurse Practitioner 10/25/22 documented as of this encounter
--- OUTSIDE RECORDS SUMMARY | 2024-06-12 02:51 | XMS_ITS | Encounter Summary ---
Author Organization [facility] Address [address] [place] [address] Care Team Providers Care Caterer Helper Name Role Phone Daiana Balderas NP Primary Care Provider [phone] Reason for Visit * Reason Comments New Patient Abnormal ECG * Consultation (Routine) - Closed Specialty Diagnoses / Procedures Referred By Contac t Referred To Contact Cardiology Diagnoses Abnormal electrocardiogram Koffi Salazar MD Phone: tel: fax: [facility] Cardiology [address] [facility] [address] [place] [address] Phone: tel: fax: Referral ID Status Reason Start Date Expiration Date V isits Requested Visits Authorized [id number] Closed Specialty Services Required 09/22/2022 10/22/2023 1 1 Encounter Details Date Type Department Care Team (Latest Contact Info) Description 10/25/2022 8:00 AM CDT Office Visit [facility] Cardiology at [address] [place] [address] Fred Topete MD [address] [facility] [address] [facility] [address] [place] [address] Abnormal electrocardiogram (Primary Dx); Ectopic atrial rhythm; Lipid screening Social History Tobacco Use Types Packs/Day Years Used Date Smoking Tobacco: Never Passive Smoke Exposure: Never Smokeless Tobacco: Never Tobacco Cessation:Counseling Given: Not Answered Comments Unknown Sex and Gender Information Value Date Recorded Sex Assigned at Not on file Legal Sex Female 11:24 AM CDT Gender Identity Not on file Sexual Orientation Not on file documented as of this encounter Last Filed Vital Signs Vital Sign Reading Time Taken Comments Blood Pressure 100/60 10/25/2022 8:24 AM CDT Pulse 82 10/25/2022 8:24 AM CDT Temperature - - Respiratory Rate - - Oxygen Saturation 97% 10/25/2022 8:24 AM CDT Inhaled Oxygen Concentration - - Weight 55.3 kg (122 lb) 10/25/2022 8:24 AM CDT Height 170.2 cm (5' 7 ) 10/25/2022 8:24 AM CDT Body Mass Index 19.11 10/25/2022 8:24 AM CDT documented in this encounter Progress Notes * Fred Topete MD - 10/25/2022 8:00 AM CDT [facility] CARDIOLOGY 10/25/2022 CHIEF COMPLAINT Abnormal electrocardiogram HPI Mckenzie Perez is a 32 y.o. female with no previous known cardiovascular history who apparently is here today because of abnormality noted on an electrocardiogram that was done in February. It appears the patient was in the emergency room at [facility] at that time and had anECG that demonstrated an ectopic/non sinus atrial rhythm but no other abnormalities were noted on that tracing. The patient states at that time she was in the emergency room because she was on her way home from a very stressful day at school. 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 Electrocardiogram other than an ectopic atrial rhythm was unremarkable. Electrocardiogram here in the office today is normal showing normal sinus rhythm. She does not have any cardiac symptoms such as palpitations shortness of breathchest pain orthopnea PND or edema. She has never had a syncopal episode. She is a mother of 2 youngchildren and has never been a smoker. There is no family history of congenital heart disease or premature sudden . MEDICAL HISTORY 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 Reported Positive Pap Smear - (Added by TW Conv) Past Surgical History: Procedure Laterality Date [place] BREAST AUGMENTATION WITH IMPLANT Breast Surgery Enlargement Procedure With Prosthetic Implant - 01/2012 (Added by TW Conv) UT COLPOSCOPY CERVIX UPPR/ADJCNT VAGINA W/CERVIX BX Colposcopy Cervix With Biopsy(S) - 2007 (Added by TW Conv) Family History Problem Relation Age of Onset Diabetes type II Maternal Grandmother Type 2 Diabetes Mellitus - (Added by TW Conv) Hypertension Mother Hypertension - (Added by TW Conv) Stroke Paternal Grandfather Stroke Syndrome - (Added by TW Conv) Social History Tobacco Use Smoking status: Never Passive exposure: Never Smokeless tobacco: Never Substance and Sexual Activity Drug use: None Sexual activity: None Alcohol Use: Not on file No current outpatient medications on file. No current facility-administered medications for this visit. No Known Allergies REVIEW OF SYSTEMS General ROS: negative for - chills, fatigue, fever, malaise, night sweats, weight gain or weight loss Psychological ROS: negative for - anxiety, depression, memory difficulties or sleep disturbances Ophthalmic ROS: negative for - blurry vision, decreased vision, loss of vision or scotomata ENT ROS: negative for - epistaxis, headaches, hearing change, nasal congestion, nasal discharge, sore throat, vertigo or visual changes Hematological and Lymphatic ROS: negative for - bleeding problems, blood clots, bruising, fatigue or weight loss Endocrine ROS: negative for - hot flashes, palpitations, polydipsia/polyuria or unexpected weight changes Respiratory ROS: negative for - cough, hemoptysis, orthopnea, shortness of breath, tachypnea or wheezing Cardiovascular ROS: negative for - chest pain, dyspnea on exertion, edema, irregular heartbeat, loss of consciousness, murmur, orthopnea, palpitations, paroxysmal nocturnal dyspnea, rapid heart rate or shortness of breath Gastrointestinal ROS: negative for - abdominal pain, appetite loss, blood in stools, constipation, diarrhea, gas/bloating, heartburn, hematemesis, melena or nausea/vomiting Genito-Urinary ROS: negative for - dysuria, or hematuria Musculoskeletal ROS: negative for - joint pain, muscle pain or muscular weakness Dermatological ROS: negative for dry skin, eczema, pruritus and rash LABS AND OTHER DIAGNOSTIC TESTS No results found for: WBC, HGB, HCT, MCV, PLT No lab exists for component: LABALBU No results found for: CHOL No results found for: HDL No results found for: LDLCALC No results found for: TRIG No results found for: CHOLHDL PHYSICAL EXAM Vitals BP 100/60 (BP Location: Right arm, Patient Position: Sitting) Pulse 82 Ht 170.2 cm (5' 7 ) Wt 55.3 kg (122 lb) SpO2 97% BMI 19.11 kg/m?? General appearance - alert, well appearing, and in no distress, oriented to person, place, and timeand acyanotic, in no respiratory distress Mental status - affect appropriate to mood Eyes - extraocular eye movements intact, sclera anicteric, no pallor Ears - external earsappear normal, hearing grossly normal bilaterally Nose - normal and patent, no erythema or discharge Mouth - mucous membranes moist, pharynx appears normal, dental hygiene good and tongue normal Neck - supple, no significant neck masses, carotids upstroke normal bilaterally, no bruits, no JVD Chest - clear to auscultation, no wheezes, rales or rhonchi, symmetric air entry, no tachypnea, retractions or cyanosis Heart - normal rate, regular rhythm, normal S1, S2, no murmurs, rubs, clicks or gallops, no JVD Abdomen - soft, nontender, nondistended, no masses or organomegaly bowel sounds normal Neurological - alert, oriented, normal speech, no focal findings or movement disorder noted Musculoskeletal - no joint tenderness, deformity or swelling, no muscular tenderness noted Extremities - peripheral pulses normal, no pedal edema, no clubbing or cyanosis Skin - normal coloration and turgor, no rashes, no suspicious skin lesions noted ASSESSMENT Intermittent ectopic/non sinus atrial arrhythmia in this otherwise healthy- appearing 32-year-old lady. This is an arrhythmia of no clinical significance or consequence. PLAN/RECOMMENDATIONS Further evaluation or follow-up of this benign atrial arrhythmia is not necessary or indicated at this point Fred Topete MD documented in this encounter Plan of Treatment Not on file documented as of this encounter Procedures Procedure Name Priority Date/Time Associated Diagnosis Comments POCT LIPID PANEL Routine 10/25/2022 8:54 AM CDT Lipid screening ECG 12-LEAD Routine 10/25/2022 Abnormal electrocardiogram documented in this encounter Results * POCT lipid panel (10/25/2022 8:54 AM CDT) Cholesterol, POC 154 mg/dL HDL, POC 42 mg/dL Triglycerides, POC 58 mg/dL LDL Cholesterol POC 100 mg/dL Chol/HDL Ratio, POC 3.7 Non-HDL Cholesterol, POC 112 mg/dL Cholesterol Total, POC 154 mg/dL Capillary blood 10/25/2022 8 :54 AM CDT us Fred Topete MD POINT OF CARE TEST ORDER KRISTEN Final Result * ECG 12 lead (10/25/2022) Fred Topete MD ECG ORDERABLES Final Re sult documented in this encounter Visit Diagnoses Diagnosis Abnormal electrocardiogram- Primary Nonspecific abnormal electrocardiogram (ECG) (EKG) Ectopic atrial rhythm Lipid screening Screening for lipoid disorders documented in this encounter Orders Outpatient Referral Count Last Ordered Date Fir st Ordered Date AMB REFERRAL TO CARDIOLOGY 1 10/25/2022 documented in this encounter Care Teams Caterer Helper Relationship Specialty Start Date End Date Daiana Balderas NP [address] [place] [id number] PCP - General Nurse Practitioner 10/25/22 documented as of this encounter
== END 2024-06-05 06:39 | disposition home or self-care (01) ==
PROVIDERS: Physician Assistant; Emergency Provider Emergency Medicine
DX: D27.1 Benign neoplasm of left ovary (principal); N39.0 Urinary tract infection, site not specified
CPT/HCPCS: 36415; 74177; 76830; 76856; 80053; 81001; 81025; 83690; 85025; 87086; 96361; 96374; 96375; 99284; A9270; J2270; J2405; J7030; Q9967

== ENCOUNTER 2024-06-06 15:29 | Emergency (ER) | payer OTHER, SELFPAY ==
--- NOTE | ~2024-06-06 | US_ITS ---
US pelvic complete Ordering provider: García Stock PA-C History: . RLQ, LLQ pain . Comparison: None. Technique: Transabdominal ultrasound of the pelvis (Doppler ultrasound interrogation techniques used as needed for this exam.) FINDINGS: CERVIX: Normal. UTERUS: Measures 8.1x 3x 3.9 cm in length which is within normal limits and is anteverted. No myomet rial masses. ENDOMETRIUM: Normal in thickness measuring 5 mm. No endometrial masses, cysts or fluid. CUL DE SAC: No free fluid. RIGHT OVARY: Normal in size measuring 2.7x 2.2x 1.7 cm. Normal echotexture. Doppler vascular flow pre sent. LEFT OVARY: No dermoid cyst is demonstrated in this study on the left side. ADNEXA: Normal. No mass. IMPRESSION: Nonvisualization of the left adnexa properly Otherwise, normal pelvic ultrasound. Reviewed, dictated and finalized at location A. TREATER APPRENTICE IMPRESSION: Nonvisualization of the left adnexa properly Otherwise, normal pelvic ultrasoun d.
--- NOTE | ~2024-06-06 | CT_ITS ---
CT abdomen pelvis w con Ordering provider: García Stock PA-C History: 34 years Female with . RLQ, R flank pain, rule out appendicitis and stone . Comparison: None. Technique: CT abdomen and pelvis with IV and without oral contrast. Automated exposure control and it erative reconstruction technique were employed. The dose-length product was 274.67 mGy-cm. 100 mL Omn ipaque 350 was given IV. Findings: Bilateral breast implants. VISUALIZED LOWER CHEST: Dependent atelectatic changes. UPPER ABDOMINAL ORGANS: Liver: Fat infiltration. Hepatomegaly. Constipation. Gallbladder: Contrast due to previous study is noted. Spleen: Normal. Stomach/duodenum: Normal. Pancreas: Normal. Slight prominence of the pancreatic duct. Adrenals: Normal. Kidneys: Normal. PELVIC ORGANS: The bladder is normal. adnexa dermoid cyst is seen in the left side of the pelvis me asuring 3.9 x 7 cm. BOWEL AND MESENTERY: Colon: No evidence of diverticulitis. Fecal material is seen in the right side of the colon suggestiv e of constipation. No evidence of appendicitis. Small Bowel: Normal. No obstruction. Peritoneum/mesentery: No free air. Trace of Free fluid in the left side of the pelvis. No mesenteric lymphadenopathy. RETROPERITONEUM: Normal aorta. No retroperitoneal lymphadenopathy. MUSCULOSKELETAL: Superficial soft tissues: The superficial soft tissues are normal. Bones: Normal spine. IMPRESSION: 1. No evidence of appendicitis, diverticulitis or intestinal obstruction. 2. Left adnexal dermoid cyst. 3. Fat infiltration of the liver with hepatomegaly. Reviewed, dictated and finalized at location A. UTER COMPOSITOR
[2024-06-06 15:51] VITALS: BP 119/71; PULSE 110; RESP 18; TEMP 36.9; O2SAT 97
--- NOTE | 2024-06-06 17:09 | ED_ITS ---
HPI - Abdominal Pain General Chief Complaint: Abdominal Pain <García Stock PA-C - Last Filed: 06/06/24 17:19> Stated Complaint: abd pain getting worse <García Stock PA-C - Last Filed: 06/06/24 17:19> Time Seen by Provider: 06/07/24 02:55 <García Stock PA-C - Last Filed: 06/06/24 17:19> Focused HPI: This is a 34-year-old female who presents to the ED for chief complaint of worsening abdominal pain over the past 2 days. Reports she was here 2 days ago and was diagnosed with dermoid cyst of the left ovary as well as UTI. She has been taking her cephalexin as prescribed. She was also given Barbeau for breakthrough pain, she did take 2 of these today and feels like it helped a little bit. Endorses nausea with several episodes of vomiting. States that the pain never really went away and today got worse from 2 days ago. Pain is primarily on the right lower abdomen. she does report having brown vaginal discharge. Denies urinary symptoms. GENERAL: Well-appearing, well-nourished, and in no acute distress. HEAD: Normocephalic, atraumatic. CHEST: Clear to auscultation. No respiratory distress. HEART: Regular rate and rhythm. NEURO: Alert and oriented x3. Patient screened in triage and initial orders placed. Additional care and disposition to be based upon diagnostic testing and treatment. <García Stock PA-C - Last Filed: 06/06/24 17:19> Source: patient <RENEE Mchugh Last Filed: 06/06/24 17:19> Mode of arrival: wheelchair <RENEE Mchugh Last Filed: 06/06/24 17:19> Limitations: no limitations <RENEE Mchugh Last Filed: 06/06/24 17:19> History of Present Illness HPI narrative: Patient 34-year-old female who presents emergency department yesterday for abdominal pain presents today with worsening abdominal pain. Patient was found have a dermoid cyst was evaluated for torsion and was negative yesterday the patient reports she had worsening pain today reports that felt like cramping in her abdomen the patient has not had a bowel movement several days patient denies fever reports pain is worse in the right lower quadrant. <Tom Heard MD - Last Filed: 06/07/24 05:11> Related Data Allergies/Adverse Reactions: Allergies Allergy/AdvReac Type Severity Reaction Status Date / Time No Known Allergies Allergy Verified 09/12/22 14:02 <García Stock PA-C - Last Filed: 06/06/24 17:19> Review of Systems 2 Review of Systems: A 10 system review of systems was completed on the patient and is negative except for what is stated in the HPI. Nursing and ancillary documentation was reviewed. <Tom Heard MD - Last Filed: 06/07/24 05:11> [facility] Past Medical History Medical History: Medical History Abnormal electrocardiography Intradermal melanocytic nevus <García Stock PA-C - Last Filed: 06/06/24 17:19> Surgical History Surgical History: Surgical History H/O local excision of skin lesion 12/27/21 3cm skin lesion removed. 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 Hx of umbilical hernia repair Open umbilical hernia repair with sutures 10/31/2021 History of augmentation of both breasts 2012 H/O breast augmentation (~2012) <García Stock PA-C - Last Filed: 06/06/24 17:19> Family History Family History: Family History Mother Alcoholism Hypertension Depression Father Hypertension Alcoholism Depression Grandparent Cerebrovascular accident Grandparent Diabetes mellitus Sibling Alcoholism <García Stock PA-C - Last Filed: 06/06/24 17:19> Social History Social History: Social History Smoking status: Never smoker Alcohol intake: current Drinks per week: 5 Substance use: never Substance use type: does not use Living arrangements: with family Additional living arrangements comments: Spouse and 2 daughters Occupation/Education: unemployed Additional occupation/education comments: stay at home mom Gender identity (if verbalized by the patient): Female Spiritual care concerns: No <García Stock PA-C - Last Filed: 06/06/24 17:19> Exam 2 Narrative: GENERAL: Well-appearing, well-nourished, and in no acute distress. HEAD: Normocephalic, atraumatic. EYES: PERRLA and EOMI. ENT: Nares clear, no rhinorrhea or epistaxis. Mucous membranes moist. NECK: Supple. CHEST: Clear to auscultation. No respiratory distress. HEART: Regular rate and rhythm. No murmur heard. Normal peripheral pulses. ABDOMEN: Soft, tenderness to palpation right lower quadrant, nondistended, normal active bowel sounds. EXTREMITIES: Normal range of motion. No edema. SKIN: Warm, dry, no rash. NEURO: No focal deficits. Alert and oriented x3. PSYCH: Normal mood and affect. <Tom Heard MD - Last Filed: 06/07/24 05:11> Course Vital Signs Vital signs: Vital Signs Temperature 36.9 C 06/06/24 15:51 Pulse Rate 110 H 06/06/24 15:51 Respiratory Rate 18 06/06/24 15:51 Blood Pressure 119/71 06/06/24 15:51 Pulse Oximetry 97 06/06/24 15:51 Oxygen Delivery Room Air 06/06/24 15:51 Temperature 36.9 C 06/07/24 02:23 Pulse Rate 99 06/07/24 04:45 Respiratory Rate 18 06/07/24 04:45 Blood Pressure 108/80 06/07/24 04:45 Pulse Oximetry 100 06/07/24 04:45 Oxygen Delivery Room Air 06/07/24 02:23 <García Stock PA-C - Last Filed: 06/06/24 17:19> Vital Signs Temperature 36.9 C 06/06/24 15:51 Pulse Rate 110 H 06/06/24 15:51 Respiratory Rate 18 06/06/24 15:51 Blood Pressure 119/71 06/06/24 15:51 Pulse Oximetry 97 06/06/24 15:51 Oxygen Delivery Room Air 06/06/24 15:51 Temperature 36.9 C 06/07/24 02:23 Pulse Rate 99 06/07/24 04:45 Respiratory Rate 18 06/07/24 04:45 Blood Pressure 108/80 06/07/24 04:45 Pulse Oximetry 100 06/07/24 04:45 Oxygen Delivery Room Air 06/07/24 02:23 <Tom Heard MD - Last Filed: 06/07/24 05:11> MDM - Abdominal Pain MDM Narrative Medical decision making narrative: Differential diagnosis includes intra-abdominal infection, constipation, diverticulitis, colitis, pyelonephritis Patient's laboratory studies showed a white count of 17.4 this is decreased from yesterday electrolytes showed no significant abnormality urinalysis showed 6-10 white blood cells this is also improved since yesterday CT scan of the abdomen pelvis showed constipation did redemonstrate the dermoid Ultrasound showed Nonvisualization of the left adnexa properly Otherwise, normal pelvic ultrasound. <Tom Heard MD - Last Filed: 06/07/24 05:11> Lab Data Result diagrams: 06/06/24 20:22 06/06/24 20:22 <García Stock PA-C - Last Filed: 06/06/24 17:19> Labs: Lab Results 06/06/24 06/06/24 06/06/24 Range/Units 20:14 20:22 20:23 WBC 17.4 H (4.5-10.0) K/mm3 RBC 4.74 (4.2-5.4) M/mm3 Hgb 13.1 (12.0-15.0) g/dL Hct 41.3 (37.0-47.0) % MCV 87.1 (80-100) fl MCH 27.6 (26-34) pg MCHC 31.7 L (32-36) g/dl RDW 15.2 H (11.5-14.5) % Plt Count 309 (150-375) k/mm3 MPV 9.8 (7.4-10.4) fl Immature Gran % (Auto) 0.8 H (0-0.5) % Neut % (Auto) 88.8 H (45.5-73.1) % Lymph % (Auto) 8.2 L (18.3-44.2) % O'Brien % (Auto) 1.8 L (2.6-8.5) % Eos % (Auto) 0.2 (0-4.4) % Baso % (Auto) 0.2 (0.2-1.2) % Lymph # (Auto) 1.42 (0.9-3.2) K/mm3 O'Brien # (Auto) 0.3 (0.1-0.6) K/mm3 Eos # (Auto) 0.0 (0-0.3) K/mm3 Baso # (Auto) 0.0 (0.0-0.1) K/mm3 Abs Immat Gran (auto) 0.14 H (0.00-0.031) K/mm3 Absolute Neuts (auto) 15.4 H (1.3-6.7) K/mm3 Absolute Nucleated RBC 0.000 (0.0-0.012) K/mm3 Nucleated RBC % 0.0 (0.0-0.2) % Sodium 134 L (137-145) mmol/L Potassium 4.0 (3.4-5.0) mmol/L Chloride 101 (98-107) mmol/L Carbon Dioxide 24 (22-30) mmol/L Anion Gap 9 (4-12) mmol/L BUN 12 (7-17) mg/dL Creatinine 0.70 (0.7-1.0) mg/dL Estim Creat Clear Calc 90 ml/min Estimated GFR > 60 (59 - ) Glucose 115 H (65-110) mg/dL Calcium 9.2 (8.4-10.2) mg/dL Total Bilirubin 0.7 (0.2-1.3) mg/dL AST 24 (14-36) U/L ALT 16 (6-35) U/L Alkaline Phosphatase 75 (38-126) U/L Total Protein 8.0 (6.3-8.2) g/dL Albumin 4.5 (3.5-5.1) g/dL Lipase 32 (23-300) U/L Urine Color Dark yellow (Yellow) Urine Appearance Turbid H (Clear) Urine pH 5.5 (5.0-9.0) Ur Specific [place] 1.044 H (1.001-1.035) Urine Protein 3+ H (Negative) mg/dL Urine Glucose (UA) Negative (Negative) mg/dL Urine Ketones 1+ H (Negative) mg/dL Ur Blood (Man) 3+ H (Negative) Urine Nitrate Negative (Negative) Urine Bilirubin 1+ H (Negative) Urine Urobilinogen 1.0 (<2.0) mg/dL Add Ur Microanalysis Reviewed Leukocyte Esterase Rfl Negative (Negative) ROBBIE/UL Urine RBC 11-20 H (0-2) /hpf Urine WBC 6-10 H (0-3) /hpf Ur Squamous Epith Cells Few (Few) /hpf Urine Bacteria None seen /hpf Urine Casts 11-20 Urine Mucus Present /lpf POC Urine HCG, Qual Negative (Negative) <García Stock PA-C - Last Filed: 06/06/24 17:19> Lab Results 06/06/24 06/06/24 06/06/24 Range/Units 20:14 20:22 20:23 WBC 17.4 H (4.5-10.0) K/mm3 RBC 4.74 (4.2-5.4) M/mm3 Hgb 13.1 (12.0-15.0) g/dL Hct 41.3 (37.0-47.0) % MCV 87.1 (80-100) fl MCH 27.6 (26-34) pg MCHC 31.7 L (32-36) g/dl RDW 15.2 H (11.5-14.5) % Plt Count 309 (150-375) k/mm3 MPV 9.8 (7.4-10.4) fl Immature Gran % (Auto) 0.8 H (0-0.5) % Neut % (Auto) 88.8 H (45.5-73.1) % Lymph % (Auto) 8.2 L (18.3-44.2) % O'Brien % (Auto) 1.8 L (2.6-8.5) % Eos % (Auto) 0.2 (0-4.4) % Baso % (Auto) 0.2 (0.2-1.2) % Lymph # (Auto) 1.42 (0.9-3.2) K/mm3 O'Brien # (Auto) 0.3 (0.1-0.6) K/mm3 Eos # (Auto) 0.0 (0-0.3) K/mm3 Baso # (Auto) 0.0 (0.0-0.1) K/mm3 Abs Immat Gran (auto) 0.14 H (0.00-0.031) K/mm3 Absolute Neuts (auto) 15.4 H (1.3-6.7) K/mm3 Absolute Nucleated RBC 0.000 (0.0-0.012) K/mm3 Nucleated RBC % 0.0 (0.0-0.2) % Sodium 134 L (137-145) mmol/L Potassium 4.0 (3.4-5.0) mmol/L Chloride 101 (98-107) mmol/L Carbon Dioxide 24 (22-30) mmol/L Anion Gap 9 (4-12) mmol/L BUN 12 (7-17) mg/dL Creatinine 0.70 (0.7-1.0) mg/dL Estim Creat Clear Calc 90 ml/min Estimated GFR > 60 (59 - ) Glucose 115 H (65-110) mg/dL Calcium 9.2 (8.4-10.2) mg/dL Total Bilirubin 0.7 (0.2-1.3) mg/dL AST 24 (14-36) U/L ALT 16 (6-35) U/L Alkaline Phosphatase 75 (38-126) U/L Total Protein 8.0 (6.3-8.2) g/dL Albumin 4.5 (3.5-5.1) g/dL Lipase 32 (23-300) U/L Urine Color Dark yellow (Yellow) Urine Appearance Turbid H (Clear) Urine pH 5.5 (5.0-9.0) Ur Specific [place] 1.044 H (1.001-1.035) Urine Protein 3+ H (Negative) mg/dL Urine Glucose (UA) Negative (Negative) mg/dL Urine Ketones 1+ H (Negative) mg/dL Ur Blood (Man) 3+ H (Negative) Urine Nitrate Negative (Negative) Urine Bilirubin 1+ H (Negative) Urine Urobilinogen 1.0 (<2.0) mg/dL Add Ur Microanalysis Reviewed Leukocyte Esterase Rfl Negative (Negative) ROBBIE/UL Urine RBC 11-20 H (0-2) /hpf Urine WBC 6-10 H (0-3) /hpf Ur Squamous Epith Cells Few (Few) /hpf Urine Bacteria None seen /hpf Urine Casts 11-20 Urine Mucus Present /lpf POC Urine HCG, Qual Negative (Negative) <Tom Heard MD - Last Filed: 06/07/24 05:11> Imaging Data Radiologist's impression: ITS Impressions Pelvis Ultrasound 06/06/24 18:04 IMPRESSION: Nonvisualization of the left adnexa properly Otherwise, normal pelvic ultrasound. Abdomen/Pelvis CT 06/06/24 21:31 IMPRESSION: 1. No evidence of appendicitis, diverticulitis or intestinal obstruction. 2. Left adnexal dermoid cyst. 3. Fat infiltration of the liver with hepatomegaly. <García Stock PA-C - Last Filed: 06/06/24 17:19> ITS Impressions Pelvis Ultrasound 06/06/24 18:04 IMPRESSION: Nonvisualization of the left adnexa properly Otherwise, normal pelvic ultrasound. Abdomen/Pelvis CT 06/06/24 21:31 IMPRESSION: 1. No evidence of appendicitis, diverticulitis or intestinal obstruction. 2. Left adnexal dermoid cyst. 3. Fat infiltration of the liver with hepatomegaly. <Tom Heard MD - Last Filed: 06/07/24 05:11> Discharge Plan Discharge Clinical Impression: Abdominal pain, Constipation <García Stock PA-C - Last Filed: 06/06/24 17:19> Patient Disposition: Home, Self-Care <García Stock PA-C - Last Filed: 06/06/24 17:19> Condition: Stable <García Stock PA-C - Last Filed: 06/06/24 17:19> Instructions: Antibiotic Form, Abdominal Pain (ED) <García Stock PA-C - Last Filed: 06/06/24 17:19> Patient Language: Turkmen <García Stock PA-C - Last Filed: 06/06/24 17:19> Prescriptions: New polyethylene glycol 3350 [Miralax] 17 gram powder in packet 17 g PO DAILY 3 Days Qty: 14 0RF No Action sumatriptan succinate 25 mg tablet See Rx Instructions PO .COMPLEX Qty: 9 1RF Rx Instructions: take 1 tab at onset of headache; if no relief may repeat 1 tab after at least 2 hrs; max = 4 tabs/24 hr PO hydrocodone-acetaminophen 5-325 mg tablet 1 tablet PO Q6H PRN (Reason: pain) 3 Days Qty: 12 0RF cephalexin 500 mg capsule 500 mg PO Q12H 7 Days Qty: 14 0RF <García Stock PA-C - Last Filed: 06/06/24 17:19> Follow-up/Referrals: PHYSICIAN NOT ON STAFF,NONSTAFF [Primary Care Provider] - <García Stock PA-C - Last Filed: 06/06/24 17:19> Time of Disposition: 05:11 <García Stock PA-C - Last Filed: 06/06/24 17:19> 05:11 <Tom Heard MD - Last Filed: 06/07/24 05:11>
[2024-06-06 20:25] LABS: BEDSIDEPREGUCG Negative (Negative)
[2024-06-06 20:29] LABS: Basophils Percent Auto 0.2 % (0.2-1.2); Eosinophils Percent Auto 0.2 % (0-4.4); Hematocrit 41.3 % (37.0-47.0); Hemoglobin 13.1 g/dL (12.0-15.0); Immature Granulocyte Absolute 0.14 K/mm3 (0.00-0.031); Immature Granulocyte Percent A 0.8 % (0-0.5); Lymphocytes Absolute Auto 1.42 K/mm3 (0.9-3.2); Lymphocytes Percent Auto 8.2 % (18.3-44.2); Mean Corpuscular HGB Conc 31.7 g/dl (32-36); Mean Corpuscular Hemoglobin 27.6 pg (26-34); Mean Corpuscular Volume 87.1 fl (80-100); Mean Platelet Volume 9.8 fl (7.4-10.4); Monocytes Absolute Auto 0.3 K/mm3 (0.1-0.6); Monocytes Percent Auto 1.8 % (2.6-8.5); Neutrophils Absolute Auto 15.4 K/mm3 (1.3-6.7); Neutrophils Percent Auto 88.8 % (45.5-73.1); Platelet Count Result 309 k/mm3 (150-375); Red Blood Count 4.74 M/mm3 (4.2-5.4); Red Cell Distribution Width 15.2 % (11.5-14.5); White Blood Count 17.4 K/mm3 (4.5-10.0)
[2024-06-06 20:41] LABS: Alanine Aminotransferase 16 U/L (6-35); Albumin Level 4.5 g/dL (3.5-5.1); Alkaline Phosphatase 75 U/L (38-126); Anion Gap 9 mmol/L (4-12); Aspartate Amino Transferase 24 U/L (14-36); Bilirubin,Total 0.7 mg/dL (0.2-1.3); Blood Urea Nitrogen 12 mg/dL (7-17); Calcium 9.2 mg/dL (8.4-10.2); Carbon Dioxide 24 mmol/L (22-30); Chloride 101 mmol/L (98-107); Estimated CRCL calculation 90 ml/min; Estimated Glomerular Filt Rate > 60; Glucose 115 mg/dL (65-110); Lipase 32 U/L (23-300); Sodium 134 mmol/L (137-145)
[2024-06-06 20:41] LABS: Add Urine Microscopic? YES; Appearance Urine Turbid (Clear); Bacteria Urine None Seen /hpf; Bilirubin Urine 1+ (Negative); Blood Urine 3+ (Negative); Color Urine Dark Yellow (Yellow); Glucose Urine UA Negative (Negative); Ketones Urine 1+ mg/dL (Negative); Leukocyte Esterase Ur Negative LEU/UL (Negative); Mucus Urine Present /lpf; Need Manual Microscopic Reviewed; Nitrate Urine Negative (Negative); Protein Urine 3+ mg/dL (Negative); Specific Grav Ur 1.044 (1.001-1.035); Squamous Epithelial Cell Urine Few /hpf (Few); pH Urine 5.5 (5.0-9.0)
[2024-06-07 02:23] VITALS: BP 119/71; PULSE 110; RESP 18; TEMP 36.9; O2SAT 97
[2024-06-07] MEDS: polyethylene glycoL 3350 17 GM POWD.PACK PO (04:01)
[2024-06-07] MEDS: SIMETHICONE 80 MG TAB.CHEW PO (04:01)
[2024-06-07 04:45] VITALS: BP 108/80; PULSE 99; RESP 18; O2SAT 100
--- OUTSIDE RECORDS SUMMARY | 2024-06-14 02:54 | XMS_ITS | Encounter Summary ---
Author Organization [facility] Address [address] [place] [address] Care Team Providers Care Xerox Machine Assembler Name Role Phone Daiana Balderas NP Primary Care Provider [phone] Encounter Details Date Type Department Care Team (Late st Contact Info) Description 10/26/2022 Orders Only [facility] Health Information Management [address] [place] [id number] Scanning, Provider Social History Tobacco Use [...] on filedocumented in this encounter Care Teams Xerox Machine Assembler Relationship Specialty Start Date End Date Daiana Balderas, WING MAILER MACHINE OPERATOR [address] [place] [address] PCP - General Nurse Practitioner 10/25/22 documented as of this encounter
--- OUTSIDE RECORDS SUMMARY | 2024-06-14 02:54 | XMS_ITS | Encounter Summary ---
Author Organization [facility] Healthcare Address [address] [place] [address] Care Team Providers Care Folder Machine Name Role Phone Daiana Balderas FISCAL ANALYST Primary Care Provider [phone] Reason for Visit * Diagnostic Imaging (Routine) - Pending Review Specialty Diagnoses / Procedures Referred By Zeynep cifuentes Referred To Contact Diagnoses Mass of upper outer quadrant of right breast Procedures Diagnostic Mammogram Bilateral W Jt W Implants Diagnostic Mammogram Bilateral W Jt Daiana Balderas, KUMAR [address] [place] [address] Phone: tel: fax: [address] [address] Referral ID Status Reason Start Date Expiration Date V isits Requested Visits Authorized [id number] Pending Review 08/14/2023 09/12/2024 1 1 Encounter Details Date Type Department Care Team (Latest Contact Info) Description 08/14/2023 2:15 PM CELL GENETICIST - 08/14/2023 11:59 PM CELL GENETICIST Hospital Encounter [facility] Bld[facility] [address] [place] [address] Mass of upper outer quadrant [...] Read Routine (OP Routine) 08/14/2023 2:40 PM CELL GENETICIST Mass of upper outer quadrant of right breast documented in this encounter Results * Diagnostic Mammogram Bilateral W Jt W Implants (08/14/2023 2:40 PM CELL GENETICIST) Anatomical Region Laterality Modality Breast Bilateral Mammography 08/14/2023 3:00 PM CELL GENETICIST Narrative 08/14/2023 3:02 PM CELL GENETICIST EXAM DESCRIPTION: ?? US BREAST RIGHT LIMITED; [...] PM T: ??08/14/2023 3:02 PM Report ID: [id number] Reading Location: ??MAMMMHE us Daiana Balderas NP IMG MAMMO PROCEDURES Final Res ult documented in this encounter Visit Diagnoses Diagnosis Mass of upper outer quadrant of right breast documented in this encounter Care Teams Folder Machine Relationship Specialty Start Date End Date Daiana Balderas NP [address] [place] [address] PCP - General Nurse Practitioner 10/25/22 documented as of this encounter
--- OUTSIDE RECORDS SUMMARY | 2024-06-14 02:54 | XMS_ITS | Encounter Summary ---
Author Organization [facility] Address [address] [facility] [place] [address] Care Team Providers Care Telephone Lineman Name Role Phone Unavailable Primary Care Provider Unavailabl e Reason for Visit * Reason Comments Sore Throat X1week Cough only at night Encounter Details Date Type Department Care Team (Late st Contact Info) Description 05/09/2021 6:40 PM PATIENT FINANCIAL SPECIALIST Office Visit [facility] AT [address] [phone] Provider, [facility] Acute nasopharyngitis (common cold) (Primary Dx) Social History Tobacco Use Types Packs/Day Years Used Date Smoking Tobacco: Never Smokeless Tobacco: Never Sex and Gender Information Value Date Recorded Sex Assigned at Not on file Gender Identity Female 05/09/2021 6:43 PM PATIENT FINANCIAL SPECIALIST Sexual Orientation Not on file COVID-19 Exposure Response Date Recorded In the last month, have you been in contact with someone who was confirmed or suspected to have Coronavirus / COVID-19? No / Unsure 05/09/2021 6:35 PM PATIENT FINANCIAL SPECIALIST documented as of this encounter Last Filed Vital Signs Vital Sign Reading Time Taken Comments Blood Pressure 102/72 05/09/2021 6:48 PM PATIENT FINANCIAL SPECIALIST Pulse 96 05/09/2021 6:48 PM PATIENT FINANCIAL SPECIALIST Temperature 36.8 ??C (98.3 ??F) 05/09/2021 6:48 PM CS T Respiratory Rate 16 05/09/2021 6:48 PM PATIENT FINANCIAL SPECIALIST Oxygen Saturation 97% 05/09/2021 6:48 PM PATIENT FINANCIAL SPECIALIST Inhaled Oxygen Concentration - - Weight 56.7 kg (125 lb) 05/09/2021 6:48 PM PATIENT FINANCIAL SPECIALIST Height 170.2 cm (5' 7 ) 05/09/2021 6:48 PM PATIENT FINANCIAL SPECIALIST Body Mass Index 19.58 05/09/2021 6:48 PM PATIENT FINANCIAL SPECIALIST documented in this encounter Patient Instructions * Patient Instructions* Kerrie Batista, CROP SUPERVISOR-DATA COLLECTION INTERVIEWER - 05/09/2021 7:52 PM PATIENT FINANCIAL SPECIALIST Patient Education Cold Symptoms LOIN TRIMMER: Cold symptoms include sneezing, dry throat, a [...] ask them during your visits. ?? Copyright [employer] 2020 Information is for End User's use only and may not be sold, redistributed or otherwise used for commercial purposes. All illustrations and images included in CareNotes?? are the copyrighted property of [employer] or [employer] The above information is an police aide only. It is not intended as medical advice for individual conditions or treatments. Talk to your doctor, nurse or pharmacist before following any medical regimen to see if it is safe and effective for you. ENT FINANCIAL SPECIALIST documented in this encounter Progress Notes * Kerrie Batista APRN-CNP - 05/09/2021 7:48 PM CST [facility] Mckenzie Kuhn is a 31 year old [...] Strep A Internal Control Present Lot # [id number] Expiration Date 11/08/22 ASSESSMENT: Encounter Diagnosis Name Primary? Acute nasopharyngitis (common cold) Yes PLAN: Orders Placed This Encounter ??? STREP A SCREEN - POINT OF CARE (AMB) STL Order Specific Question: Release to patient Answer: Immediate I have spent a total of 20 minutes. Time was spent reviewing medical history, performing physical exam, documenting, counseling/educating, reviewing plan of care, and POC test. ENT FINANCIAL SPECIALIST documented in this encounter Plan of Treatment Not on file documented as of this encounter Procedures Procedure Name Priority Date/Time Associated Diagnosis Comments STREP A SCREEN - POINT OF CARE (AMB) STL Routine 05/09/2021 7:52 PM PATIENT FINANCIAL SPECIALIST Acute nasopharyngitis (common cold) documented in this encounter Results * STREP A SCREEN - POINT OF CARE (AMB) STL (05/09/2021 7:52 PM PATIENT FINANCIAL SPECIALIST) Strep A Rapid POCT Negative Negative [facility] Strep A Internal Control Present [facility] Lot # [id number] [facility] Expiration Date 11/08/22 [facility] Throat ENTIRE THROAT (SURFACE REGION OF NECK) / Unknown 05/09/2021 7:52 PM PATIENT FINANCIAL SPECIALIST Kerrie Batista CROP SUPERVISOR-DATA COLLECTION INTERVIEWER LAB - POINT OF CA RE ORDERABLES [facility] [address] [phone] documented in this encounter Visit Diagnoses Diagnosis Acute nasopharyngitis (common cold)- Primary documented in this encounter
--- OUTSIDE RECORDS SUMMARY | 2024-06-14 02:54 | XMS_ITS | Clinical Summary ---
Author Organization [facility] Address [address] [place] [address] Care Team Providers Care Potato Chip Sacking Machine Operator Name Role Phone Daiana Balderas NP Primary Care Provider [phone] Allergies No known active allergies Medications No known medications Active Problems Problem Noted Date Diagnosed Date Encounter for well woman girma m with routine gynecological exam 05/23/2024 Assessment & Plan (05/26/2024 6:49 AM EDITOR NEWS): CBC, CMP, lipid panel,TSH UTD with stable results. Mammogram last completed: 08/2023 Pelvic exam completed in office, patient tolerated procedure well. Pap with HPV testing ordered. Vaccinations: Flu and Tdap vaccines UTD. Patient to continue in current diet and exercise routine. Repeat wellness exam in one year. CAYDEN (generalized anxiety disorder) 02/28/2023 Assessment & Plan (05/26/2024 6:47 AM EDITOR NEWS): Chronic, controlled without medication. Patient to follow up yearly. 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 Encounters Date Type Department Care Team Description 06/06/2024 Telephone [facility] Primary Care [address] [place] [address] Daiana Balderas, KUMAR Recommendation Request 05/23/2024 3:51 PM EDITOR NEWS - 05/23/2024 11:59 PM EDITOR NEWS Hospital Encounter [facility] [address] [place] [address] Screening for cervical cancer Discharge Disposition: Discharge to home or self care 05/23/2024 12:30 PM EDITOR NEWS Office Visit [facility] Primary Care [facility] [place] [address] Daiana Balderas, FAMILY EDUCATOR Encounter for well woman exam with routine [...] 09/26/2018 Surgical History Surgery Date Site/Laterality Comments [place] BREAST AUGMENTATION WITH IMPLANT Breast Surgery Enlargement Procedure With Prosthetic Implant - 01/2012 (Added by TW Conv) [place] COLPOSCOPY CERVIX UPPR/AD JCNT VAGINA W/CERVIX BX [...] Comments Blood Pressure 112/80 05/23/2024 12:39 PM EDITOR NEWS Pulse 88 05/23/2024 12:39 PM EDITOR NEWS Temperature 36.6 ??C (97.9 ??F) 05/23/2024 1 2:39 PM EDITOR NEWS Respiratory Rate 16 05/23/2024 12:3 9 PM EDITOR NEWS Oxygen Saturation 98% 05/23/2024 12: 39 PM EDITOR NEWS Inhaled Oxygen Concentration - - Weight 60.3 kg (132 lb 14.4 oz) 024 12:39 PM EDITOR NEWS Height 170.2 cm (5' 7 ) 05/23/2024 12:3 9 PM EDITOR NEWS Body Mass Index 20.82 05/23/2024 12:39 PM EDITOR NEWS Plan of Treatment Health Maintenance Due Date [...] REFLEX TO GENOTYPING Routine 05/23/2024 1:12 PM EDITOR NEWS Screening for cervical cancer HIGH RISK HPV DNA DETECTION WITH GENOTYPING Routine 05/23/2024 1:12 PM EDITOR NEWS Screening for cervical cancer from Last 3 Months Results * High Risk HPV DNA Detection with Genotyping (Molecular component) (05/23/2024 1:12 PM EDITOR NEWS) HPV HR 16 Not Detected Not Detected [facility] Comment:Testing performed by : [facility], [address] [place]., [address] HPV HR 18 Not Detected Not Detected [facility] Comment:Testing performed by : [facility], [address] [place]., [address] HPV HR Non 16/18 Not Detected Not [...] this test have been verified by the [facility] Molecular Infectious Disease laboratory. Correlate with separately reported cytology results, as applicable. Interpretive data last revised 22 Testing performed by: [facility], [address] [place]., [address] Endocervical 05/23/2024 1:12 PM EDITOR NEWS 05/23/2024 9:23 PM EDITOR NEWS Narrative [facility] - 05/24/2024 6:20 AM EDITOR NEWS Clinical history and diagnosis->screening for cervical cancer Number of vials->1 Testing type->Screening Last menstrual period (date if known)->05/11/2024 Menstrual status->Regular Daiana Balderas NP LAB BODY FLUIDS AND STOOLS ORD ERABLES Final Result [facility] [address] [facility] Department [place] [address] [facility] * Pap and High Risk HPV and Genotyping (Cytology Component) (05/23/2024 1:12 PM EDITOR NEWS) Thin prep (Pap test) 05/23/2024 1:12 PM EDITOR NEWS 05/26/2024 8:55 AM EDITOR NEWS Narrative PATHOLOGY [facility] - 05/30/2024 10:22 AM EDITOR NEWS EPIC results best viewed via link to PDF [facility] of [place] [address] [place] [address] Note to Patients: This report may contain [...] Gender: ??F : ??1990 (Age: 34) Address: ??[address] [place] [address] ??[phone] Hospital #: ??[id number] Service: ??DEFAULT Location: ?? Patient Type: ??[facility] Taken: ??05/23/2024 Received: ??05/26/2024 Accessioned: ??05/26/2024 [...] this test have been verified by the [facility] Molecular Infectious Disease laboratory. Correlate with reported [...] clinical information and biopsy results as indicated. [facility] Clinical Laboratory Improvement Amendments (CLIA) mandate that cytologic and histologic results be correlated for laboratory customer quality engineer & improvement standards. ??FOR ALL HIGH-GRADE CASES [...] determined by the Surgical Pathology Department at [facility] as part of an ongoing quality controller program and in compliance with federally mandated [...] determined by the Surgical Pathology Department of [facility]. ??It has not been cleared or approved by the U. S. Food and Drug Administration. Daiana Balderas NP LAB CYTOLOGY ORDERABLES Final Result PATHOLOGY [facility] from Last 3 Months Insurance [facility] Care Teams Potato Chip Sacking Machine Operator Relationship Specialty Start Date End Date Daiana Balderas NP [address] [place] [phone] PCP - General Nurse Practitioner 10/25/22
--- OUTSIDE RECORDS SUMMARY | 2024-06-14 02:54 | XMS_ITS | Encounter Summary ---
Author Organization [facility] Healthcare Address [address] [place] [address] Care Team Providers Care Sound Effects Person Name Role Phone Daiana Balderas SENIOR NETWORK ARCHITECT Primary Care Provider [phone] Reason for Visit * Reason Onset Date Comments Recommendation Request 06/06/2024 Encounter Details Date Type Department Care Team ([facility] Contact Info) Description 06/06/2024 Telephone [facility] Medical Group Primary Care [address] [facility] [address] [place] [address] Daiana Balderas, SENIOR NETWORK ARCHITECT [address] [facility] [address] [place] [address] Recommendation Request Social History Tobacco Use Types Packs/Day Years [...] encounter Miscellaneous Notes * Telephone Encounter - Kerrie Gonsales - 06/06/2024 9:14 AM CST Recommendation Request Note: This request is for a specialty recommendation, not an insurance referral. Specialty: ob/ gym Why does the patient want to go to this specialist? Cyst on ovary Additional Comments/Concerns: pt was given an appt on 06/16 and would like to know if Daiana can give a recommendation for pt to be seen sooner Does message need to be routed? Yes-Action Needed ULA WEIGHER documented in this encounter Plan of Treatment Not on file documented as of this encounter Visit Diagnoses Not on filedocumented in this encounter Care Teams Sound Effects Person Relationship Specialty Start Date End Date Daiana Balderas, KUMAR [address] [place] [address] PCP - General Nurse Practitioner 10/25/22 documented as of this encounter
--- OUTSIDE RECORDS SUMMARY | 2024-06-14 02:54 | XMS_ITS | Encounter Summary ---
Author Organization [facility] Medical Group Address [address] [facility] [address] [place] [address] Care Team Providers Care Humanities Coordinator Name Role Phone Daiana Balderas CONCRETE BLOCK MOLDER Primary Care Provider [phone] Reason for Visit * Reason Comments New Patient Encounter Details Date Type Department Care Team (Latest Contact Info) Description 02/28/2023 11:00 AM CDT Office Visit [facility] Medical Group Primary Care [address] [address] Daiana Balderas, CONCRETE BLOCK MOLDER [address] [place] [address] School physical exam (Primary Dx); CAYDEN [...] this encounter Progress Notes * Daiana Balderas, CONCRETE BLOCK MOLDER - 02/28/2023 11:00 AM CDT Subjective/Objective Patient [...] Conv) Past Surgical History: Procedure Laterality Date AR BREAST AUGMENTATION WITH IMPLANT Breast Surgery Enlargement Procedure With Prosthetic Implant - 01/2012 (Added by TW Conv) AR COLPOSCOPY CERVIX UPPR/ADJCNT VAGINA W/CERVIX BX Colposcopy [...] 8:15 AM CDT) VZV IgG 589.20 index [employer] [facility] Comment: ? Index ? Interpretation [...] ORD ERABLES Final Result Performing Organization Address [facility] de Phone Number [facility] [address] [place] [address] * TSH reflex to free T4 (03/07/2023 8:15 AM CDT) TSH 1.62 mIU/L [facility]io Jacobs Comment: ?Reference Range ?> or = 20 Years ??0.40-4.50 ? Ranges ?First trimester ?0.26-2.66 ?Second trimester ?? 0.55-2.73 ?Third trimester ?0.43-2.91 Blood 03/07/2023 8:15 AM CDT 03/07/2023 8:16 AM CDT Narrative [facility] - 03/08/2023 2:44 PM CDT FASTING:YES FASTING: YES Daiana Balderas NP LAB BLOOD ORDERABLES Final Res ult Performing Organization Address [facility] de Phone Number MILAD Jacobs [address] [facility] [place] [address] * (ABNORMAL) Lipid panel (03/07/2023 8:15 AM CDT) Cholesterol 173 <200 mg/dL Milad Archibald [facility] HDL 47(L) > OR = 50 mg/dL Milad PittarelloRajDakotah vane [facility] Triglycerides 90 <150 mg/dL Milad ToRajDakotah [facility]ane [facility] LDL 108(H) mg/dL (calc) Milad PittarelloSara Cunningham Comment: Reference range: <100 Desirable range <100 mg/dL for primary prevention; ?? <70 mg/dL for patients with CHD or diabetic patients with > or = 2 CHD risk factors. LDL-C is now calculated using the Gilbert calculation, which is a validated novel method providing better accuracy than the Friedewald equation in the estimation of LDL-C. Hermelindo BURROUGHS et al. DANIEL. 2013;310(19): 3897-0760 (http://education.RadioShack/faq/ANZ297) Chol/HDL ratio 3.7 <5.0 (calc) Milad ToRajDakotah vane Cunningham Non-HDL, (LDL+VLDL) 126 <130 mg/dL (calc) Milad HapticomDakotah vane Cunningham Comment: For patients with diabetes plus 1 major ASCVD risk factor, treating to a non-HDL-C goal of <100 mg/dL (LDL-C of <70 mg/dL) is considered a therapeutic option. Blood 03/07/2023 8:15 AM CDT 03/07/2023 8:16 AM CDT Narrative [facility] - 03/08/2023 2:44 PM CDT FASTING:YES FASTING: YES us Daiana Balderas NP LAB BLOOD ORDERABLES Final Res ult [facility] [address] [place] [address] * Comprehensive metabolic panel (03/07/2023 8:15 AM [...] Chloride 104 98 - 110 mmol/L Milad To-Dakotah Cunningham CO2 28 20 - 32 mmol/L [...] ORDERABLES Final Res ult MILAD ToSt Cunningham [address] [place] [address] * (ABNORMAL) CBC with auto differential (03/07/2023 [...] ORDERABLES Final Res ult MILAD ToSt Cunningham [address] [place] [address] documented in this encounter Visit Diagnoses Diagnosis School physical exam- Primary Health examination of defined subpopulation CAYDEN (generalized anxiety disorder) Generalized anxiety disorder Fatigue, unspecified type Screening for hyperlipidemia Screening for lipoid disorders documented in this encounter Care Teams Humanities Coordinator Relationship Specialty Start Date End Date Daiana Balderas, KUMAR [facility] [address] PCP - General Nurse Practitioner 10/25/22 documented as of this encounter
--- OUTSIDE RECORDS SUMMARY | 2024-06-14 02:54 | XMS_ITS | Encounter Summary ---
Author Organization [facility] Healthcare Address [address] [place] [address] Care Team Providers Care Record Label Internship Name Role Phone Daiana Balderas NP Primary Care Provider [phone] Reason for Visit * Reason Comments TB Test Encounter Details Date Type Department Care Team (Latest Contact Info) Description 12/28/2023 9:00 AM CDT Clinical Support [facility] Medical Group Primary Care 1414 [facility] [address] [place] [address] PPD screening test (Primary Dx) [...] tuberculosis documented in this encounter Care Teams Record Label Internship Relationship Specialty Start Date End Date Daiana Balderas, FLOOR SANDER [address] [place] [address] PCP - General Nurse Practitioner 10/25/22 documented as of this encounter
--- OUTSIDE RECORDS SUMMARY | 2024-06-14 02:54 | XMS_ITS | Encounter Summary ---
Author Organization [facility] Address [address] [facility] [place] [address] Care Team Providers Care Micro Computer Specialist Name Role Phone Daiana Balderas MD Primary Care Provider Unavaila ble Reason for Visit * Reason Comments Respiratory Fit Exam Encounter Details Date Type Department Care Team (Latest Contact Info) Description 10/18/2023 2:30 PM CDT Clinical Support [address] [address] Fitting and adjustment of device Social History Tobacco Use Types Packs/Day Years Used Date Smoking Tobacco: Never Smokeless Tobacco: Never Sex and Gender Information Value Date Recorded Sex Assigned at Not on file Gender Identity Female 05/09/2021 6:43 PM ENAMEL CRACKER Sexual Orientation Not on file documented as [...] device documented in this encounter Care Teams Micro Computer Specialist Relationship Specialty Start Date End Date Daiana Balderas MD PCP - General 11/02/21 documented as of this encounter
--- OUTSIDE RECORDS SUMMARY | 2024-06-14 02:54 | XMS_ITS | Encounter Summary ---
Author Organization [facility] Medical [facility] Address [address] [facility] [address] [place] [address] Care Team Providers Care Tennis Ball Coverer Hand Name Role Phone No, Physician Primary Care Provider [phone] Daiana Balderas COSMETICS DEMONSTRATOR Primary Care Provider [phone] Encounter Details Date Type Department Care Team (Late st Contact Info) Description 10/24/2022 Telephone [facility] Cardiology [address] [facility] [address] [place] [address] Fred Topete MD [address] [place] [address] Social History Tobacco Use Types [...] - 10/24/2022 2:55 PM CDT Daiana Balderas COSMETICS DEMONSTRATOR office (PCP) called in regard to a [...] on filedocumented in this encounter Care Teams Tennis Ball Coverer Hand Relationship Specialty Start Date End Date No, Physician PCP - General 09/22/22 10/24/22 Daiana Balderas, KUMAR [address] [place] [address] PCP - General Nurse Practitioner 10/25/22 documented as of this encounter
--- OUTSIDE RECORDS SUMMARY | 2024-06-14 02:54 | XMS_ITS | Encounter Summary ---
Author Organization [facility] Medical Group Address [address] [facility] [address] [place] [address] Care Team Providers Care Programmer Operator Numerical Control Name Role Phone Daiana Balderas NP Primary Care Provider [phone] Reason for Visit * Reason Comments New Patient Abnormal ECG * Consultation (Routine) - Closed Specialty Diagnoses / Procedures Referred By Contac t Referred To Contact Cardiology Diagnoses Abnormal electrocardiogram Koffi Salazar MD Phone: tel: fax: [facility] Cardiology [address] [facility] [address] [place] [address] Phone: tel: fax: Referral ID Status Reason Start Date Expiration Date V isits Requested Visits Authorized [id number] Closed Specialty Services Required 09/22/2022 10/22/2023 1 1 Encounter Details Date Type Department Care Team (Latest Contact Info) Description 10/25/2022 8:00 AM CDT Office Visit [facility] Cardiology at [address] [place] [address] Fred Topete MD [address] [facility] [address] [address] Abnormal electrocardiogram (Primary Dx); Ectopic atrial [...] Topete MD - 10/25/2022 8:00 AM CDT [facility] CARDIOLOGY 10/25/2022 CHIEF COMPLAINT Abnormal electrocardiogram HPI Mckenzie Perez is a 32 y.o. female with no previous known cardiovascular history who apparently is here today because of abnormality noted on an electrocardiogram that was done in February. It appears the patient was in the emergency room at [facility] at that time and had anECG [...] Conv) Past Surgical History: Procedure Laterality Date PA BREAST AUGMENTATION WITH IMPLANT Breast Surgery Enlargement Procedure With Prosthetic Implant - 01/2012 (Added by TW Conv) PA COLPOSCOPY CERVIX UPPR/ADJCNT VAGINA W/CERVIX BX Colposcopy [...] 10/25/2022 documented in this encounter Care Teams Programmer Operator Numerical Control Relationship Specialty Start Date End Date Daiana Balderas NP [address] [place] [address] PCP - General Nurse Practitioner 10/25/22 documented as of this encounter
--- OUTSIDE RECORDS SUMMARY | 2024-06-14 02:54 | XMS_ITS | Patient Health Summary ---
Author Organization [facility] [employer] Address [address] [facility] [place] [address] Care Team Providers Care Dye Tub Tender Name Role Phone Daiana Balderas MD Primary Care Provider Chrsi khan Note from [facility] [employer] [facility],non-owned Affiliates and Associated Physician Practices is amultiple site organization consisting of ambulatory clinics and hospital sitesin [place], [place], [place] and [place]. This disclosure is being madepursuant to the Care Everywhere program and may not contain all information available regarding this patient. Last updated 18.[facility] [employer] Allergies No known active allergies Medications Be aware that medications may not be up to date on this document. Always verify current medications with the patient. No known medications Social History Tobacco Use Types Packs/Day Years Used Date Smoking Tobacco: Never Smokeless Tobacco: Never Sex and Gender Information Value Date Recorded Sex Assigned at Not on file Gender Identity Female 05/09/2021 6:43 PM GENETIC SCIENTIST Sexual Orientation Not on file Last Filed Vital Signs Vital Sign Reading Time Taken Comments Blood Pressure 102/72 05/09/2021 6:48 PM GENETIC SCIENTIST Pulse 96 05/09/2021 6:48 PM GENETIC SCIENTIST Temperature 36.8 ??C (98.3 ??F) 05/09/2021 6:48 PM CS T Respiratory Rate 16 05/09/2021 6:48 PM GENETIC SCIENTIST Oxygen Saturation 97% 05/09/2021 6:48 PM GENETIC SCIENTIST Inhaled Oxygen Concentration - - Weight 56.7 kg (125 lb) 05/09/2021 6:48 PM GENETIC SCIENTIST Height 170.2 cm (5' 7 ) 05/09/2021 6:48 PM GENETIC SCIENTIST Body Mass Index 19.58 05/09/2021 6:48 PM GENETIC SCIENTIST Procedures * STREP A SCREEN - POINT OF CARE (AMB) STL(Performed 05/09/2021) Performed for Acute nasopharyngitis (common cold) Results * STREP A SCREEN - POINT OF CARE (AMB) STL (05/09/2021 7:52 PM GENETIC SCIENTIST) Strep A Rapid POCT Negative Negative [facility] Strep A Internal Control Present [facility] Lot # [id number] [facility] Expiration Date 11/08/22 [facility] Throat ENTIRE THROAT (SURFACE REGION OF NECK) / Unknown 05/09/2021 7:52 PM GENETIC SCIENTIST Kerrie Batista DEPUTY EDITOR IN CHIEF-CHURCH ADMINISTRATOR LAB - POINT OF CA RE ORDERABLES [facility] [address] [phone] Care Teams Dye Tub Tender Relationship Specialty Start Date End Date Daiana Balderas MD PCP - General 11/02/21
--- OUTSIDE RECORDS SUMMARY | 2024-06-14 02:54 | XMS_ITS | Encounter Summary ---
Author Organization [facility] Healthcare Address [address] [place] [address] Care Team Providers Care Razor Sharpener Name Role Phone Daiana Balderas NP Primary Care Provider [phone] Encounter Details Date Type Department Care Team (Latest Contact Info) Description 05/23/2024 3:51 PM POLITICAL REPORTER - 05/23/2024 11:59 PM POLITICAL REPORTER Hospital Encounter [facility] [place] [address] Screening for cervical cancer Discharge Disposition: Discharge [...] DETECTION WITH GENOTYPING Routine 05/23/2024 1:12 PM POLITICAL REPORTER Screening for cervical cancer PAP AND HIGH RISK HPV, REFLEX TO GENOTYPING Routine 05/23/2024 1:12 PM POLITICAL REPORTER Screening for cervical cancer documented in this encounter Results * Pap and High Risk HPV and Genotyping (Cytology Component) (05/23/2024 1:12 PM POLITICAL REPORTER) Thin prep (Pap test) 05/23/2024 1:12 PM POLITICAL REPORTER 05/26/2024 8:55 AM POLITICAL REPORTER Narrative PATHOLOGY [facility] - 05/30/2024 10:22 AM POLITICAL REPORTER EPIC results best viewed via link to PDF [facility] [place] [address] Note to Patients: This report may contain [...] Gender: ??F : ??1990 (Age: 34) Address: ??[address] [place] [address] ??[id number] Hospital #: ??[id number] Service: ??DEFAULT Location: ?? Patient Type: ??[facility] SPECIMEN Taken: ??05/23/2024 Received: ??05/26/2024 Accessioned: ??05/26/2024 [...] this test have been verified by the [facility] Molecular Infectious Disease laboratory. Correlate with reported cytology results, as applicable. Interpretive data last revised 22 salome/05/30/2024 10:22 LLOYD Hallman(ASCP) Report Electronically Reviewed and Signed Out By LLOYD aHllman(ASCP) 05/30/2024 10:22:39 Cervicovaginal Cytology (Pap Test) Disclaimer: [...] histologic results be correlated for laboratory quality improvement coordinator & improvement standards. ??FOR ALL HIGH-GRADE CASES [...] determined by the Surgical Pathology Department at [facility] as part of an ongoing senior quality control inspector program and in compliance with federally mandated [...] determined by the Surgical Pathology Department of [facility]. ??It has not been cleared or approved by the U. S. Food and Drug Administration. Daiana Balderas NP LAB CYTOLOGY ORDERABLES Final Result PATHOLOGY [facility] * High Risk HPV DNA Detection with Genotyping (Molecular component) (05/23/2024 1:12 PM POLITICAL REPORTER) HPV HR 16 Not Detected Not Detected [facility] Comment:Testing performed by : [facility], [address] [place]., [address] HPV HR 18 Not Detected Not Detected [facility] Comment:Testing performed by : [facility], [address] [facility] [place]., [address] HPV HR Non 16/18 Not Detected Not [...] this test have been verified by the [facility] Molecular Infectious Disease laboratory. Correlate with separately reported cytology results, as applicable. Interpretive data last revised 22 Testing performed by: [facility], [address] [place]., [address] Endocervical 05/23/2024 1:12 PM POLITICAL REPORTER 05/23/2024 9:23 PM POLITICAL REPORTER Narrative [facility] - 05/24/2024 6:20 AM POLITICAL REPORTER Clinical history and diagnosis->screening for cervical cancer Number of vials->1 Testing type->Screening Last menstrual period (date if known)->05/11/2024 Menstrual status->Regular Daiana Balderas NP LAB BODY FLUIDS AND STOOLS ORD ERABLES Final Result [facility] [address] [facility] Department [place] [address] [facility] documented in this encounter Visit Diagnoses Diagnosis Screening for cervical cancer Screening for malignant neoplasm of the cervix documented in this encounter Care Teams Razor Sharpener Relationship Specialty Start Date End Date Daiana Balderas NP [address] [place] [address] PCP - General Nurse Practitioner 10/25/22 documented as of this encounter
--- OUTSIDE RECORDS SUMMARY | 2024-06-14 02:54 | XMS_ITS | Encounter Summary ---
Author Organization [facility] Medical Group Address [address] [facility] [address] [place] [address] Care Team Providers Care Dextrine Mixer Name Role Phone Daiana Balderas NP Primary Care Provider [phone] Reason for Referral * Cardiology (Routine) - Closed Specialty Diagnoses / Procedures Referred By Contac t Referred To Contact Procedures ECG 12 lead Manuel Quesada MD [address] [place] [address] Phone: tel: Referral ID Status Reason Start Date Expiration Date Visits Re quested Visits Authorized [id number] Closed 10/25/2022 11/24/2023 1 1 Encounter Details Date Type Department Care Team (Late st Contact Info) Description 10/25/2022 Orders Only [facility] Medical Group Cardiology [address] [facility] [address] [place] [address] Manuel Quesada MD [address] [place] [address] Social History Tobacco Use Types [...] on filedocumented in this encounter Care Teams Dextrine Mixer Relationship Specialty Start Date End Date Daiana Balderas NP [address] [place] [address] PCP - General Nurse Practitioner 10/25/22 documented as of this encounter
--- OUTSIDE RECORDS SUMMARY | 2024-06-14 02:54 | XMS_ITS | Encounter Summary ---
Author Organization [facility] Address [address] [place] [address] Care Team Providers Care Evidence Specialist Name Role Phone Daiana Balderas FLEET SERVICE MANAGER Primary Care Provider [phone] Reason for Referral * Diagnostic Imaging (Routine) - Closed Specialty Diagnoses / Procedures Referred By Zeynep t Referred To Contact Diagnoses Mass of upper outer quadrant of right breast Procedures US Breast Right Limited Daiana Balderas NP [address] [place] [address] Phone: tel: fax: [address] [address] Referral ID Status Reason Start Date Expiration Date Visits Re quested Visits Authorized [id number] Closed 07/12/2023 08/10/2024 1 1 ORATE ACCOUNTING MANAGER Reason for Visit * Diagnostic Imaging (Routine) - Closed Specialty Diagnoses / Procedures Referred By Contac t Referred To Contact Diagnoses Mass of upper outer quadrant of right breast Procedures US Breast Right Limited Daiana Balderas NP [address] [place] [address] Phone: tel: fax: [address] [address] Referral ID Status Reason Start Date Expiration Date Visits Re quested Visits Authorized [id number] Closed 07/12/2023 08/10/2024 1 1 Encounter Details Date Type Department Care Team (Latest Contact Info) Description 08/14/2023 2:00 PM CORPORATE ACCOUNTING MANAGER - 08/14/2023 11:59 PM CORPORATE ACCOUNTING MANAGER Hospital Encounter [facility] Medical Office Bldg 1 Breast [facility] [address] [facility] [address] [place] [address] Mass of upper outer quadrant of right [...] Read Routine (OP Routine) 08/14/2023 2:55 PM CORPORATE ACCOUNTING MANAGER Mass of upper outer quadrant of right breast documented in this encounter Results * US Breast Right Limited (08/14/2023 2:55 PM CORPORATE ACCOUNTING MANAGER) Anatomical Region Laterality Modality Breast Right Ultrasound 08/14/2023 3:00 PM CORPORATE ACCOUNTING MANAGER Narrative 08/14/2023 3:02 PM CORPORATE ACCOUNTING MANAGER EXAM DESCRIPTION: ?? US BREAST RIGHT LIMITED; [...] PM T: ??08/14/2023 3:02 PM Report ID: [id number] Reading Location: ??MAMMM[facility] us Daiana Balderas NP IMG MAMMO PROCEDURES Final Res ult documented in this encounter Visit Diagnoses Diagnosis Mass of upper outer quadrant of right breast documented in this encounter Care Teams Evidence Specialist Relationship Specialty Start Date End Date Daiana Balderas NP [address] [place] [address] PCP - General Nurse Practitioner 10/25/22 documented as of this encounter
--- OUTSIDE RECORDS SUMMARY | 2024-06-14 02:54 | XMS_ITS | Encounter Summary ---
Author Organization [facility] Healthcare Address [address] [place] [address] Care Team Providers Care Freight Elevator Operator Name Role Phone Daiana Balderas NP Primary Care Provider [phone] Reason for Referral * Diagnostic Imaging (Routine) - Closed Specialty Diagnoses / Procedures Referred By Contashlyn t Referred To Contact Diagnoses Mass of upper outer quadrant of right breast Procedures US Breast Right Limited Daiana Balderas NP [address] [place] [address] Phone: tel: fax: [address] [phone] Referral ID Status Reason Start Date Expiration Date Visits Re quested Visits Authorized [id number] Closed 07/12/2023 08/10/2024 1 1 LER SECTIONS ASSEMBLER Reason for Visit * Reason Comments Breast Mass Right side found abo ut 4 days ago- started period yesterday Encounter Details Date Type Department Care Team (Late st Contact Info) Description 07/12/2023 2:00 PM TRAILER SECTIONS ASSEMBLER Office Visit [facility] Medical Group Primary Care [address] [place] [phone] Daiana Balderas NP [address] [place] [address] Mass of upper outer quadrant of [...] Comments Blood Pressure 102/60 07/12/2023 1:59 PM TRAILER SECTIONS ASSEMBLER Pulse 81 07/12/2023 1:59 PM TRAILER SECTIONS ASSEMBLER Temperature 36.8 ??C (98.3 ??F) 07/12/2023 1:59 PM CS T Respiratory Rate 18 07/12/2023 1:59 PM TRAILER SECTIONS ASSEMBLER Oxygen Saturation 98% 07/12/2023 1:59 PM TRAILER SECTIONS ASSEMBLER Inhaled Oxygen Concentration - - Weight 57.6 kg (127 lb) 07/12/2023 1:59 PM TRAILER SECTIONS ASSEMBLER Height 170.2 cm (5' 7.01 ) 07/12/2023 1:59 PM CS T Body Mass Index 19.89 07/12/2023 1:59 PM TRAILER SECTIONS ASSEMBLER documented in this encounter Progress Notes * [...] Conv) Past Surgical History: Procedure Laterality Date RI BREAST AUGMENTATION WITH IMPLANT Breast Surgery Enlargement Procedure With Prosthetic Implant - 01/2012 (Added by TW Conv) RI COLPOSCOPY CERVIX UPPR/ADJCNT VAGINA W/CERVIX BX Colposcopy [...] Breast Right Limited; Future Daiana Balderas NP LER SECTIONS ASSEMBLER documented in this encounter Plan of Treatment Not on file documented as of this encounter Results * US Breast Right Limited (08/14/2023 2:55 PM TRAILER SECTIONS ASSEMBLER) Anatomical Region Laterality Modality Breast Right Ultrasound 08/14/2023 3:00 PM TRAILER SECTIONS ASSEMBLER Narrative 08/14/2023 3:02 PM TRAILER SECTIONS ASSEMBLER EXAM DESCRIPTION: ?? US BREAST RIGHT LIMITED; [...] PM T: ??08/14/2023 3:02 PM Report ID: [id number] Reading Location: ??[facility] Daiana Balderas CONTROL ROOM OPERATOR IMG MAMMO PROCEDURES Final Res ult documented in this encounter Visit Diagnoses Diagnosis Mass of upper outer quadrant of right breast- Primary Mass of upper outer quadrant of right breast documented in this encounter Care Teams Freight Elevator Operator Relationship Specialty Start Date End Date Daiana Balderas NP [address] [place] [phone] PCP - General Nurse Practitioner 10/25/22 documented as of this encounter
--- OUTSIDE RECORDS SUMMARY | 2024-06-14 02:54 | XMS_ITS | Encounter Summary ---
Author Organization [facility] Healthcare Address [address] [place] [address] Care Team Providers Care Coremaker Experimental Name Role Phone Daiana Balderas NP Primary Care Provider [phone] Reason for Visit * Reason Comments TB Test Encounter Details Date Type Department Care Team (Latest Contact Info) Description 12/21/2023 2:30 PM CDT Clinical Support [facility] Medical Group Primary Care [facility] [address] [place] [address] PPD screening test (Primary Dx) [...] tuberculosis documented in this encounter Care Teams Coremaker Experimental Relationship Specialty Start Date End Date Daiana Balderas, KUMAR [address] [place] [address] PCP - General Nurse Practitioner 10/25/22 documented as of this encounter
--- OUTSIDE RECORDS SUMMARY | 2024-06-14 02:54 | XMS_ITS | Encounter Summary ---
Author Organization [facility] Healthcare Address [address] [place] [address] Care Team Providers Care Development Writer Name Role Phone Daiana Balderas NP Primary Care Provider [phone] Reason for Visit * Reason Comments PPD Placement Encounter Details Date Type Department Care Team (Latest Contact Info) Description 12/19/2023 2:00 PM CDT Clinical Support [facility] Medical Group Primary Care [address] [facility] [address] [place] [address] PPD screening test (Primary Dx) [...] tuberculosis documented in this encounter Care Teams Development Writer Relationship Specialty Start Date End Date Daiana Balderas, KUMAR [address] [place] [address] PCP - General Nurse Practitioner 10/25/22 documented as of this encounter
--- OUTSIDE RECORDS SUMMARY | 2024-06-14 02:54 | XMS_ITS | Referral Summary ---
Author Organization [facility] Address [address] [place] [address] Care Team Providers Care Assistant Boiler Operator Name Role Phone Daiana Balderas QUARANTINE INSPECTOR Primary Care Provider Encounters Date Type Department Care Team Description 06/06/2024 Telephone [facility] Medical [facility] Primary Care [address] [place] [phone] Daiana Balderas NP Recommendation Request 05/23/2024 3:51 PM MECHANICAL SYSTEMS DESIGN ENGINEER - 05/23/2024 11:59 PM MECHANICAL SYSTEMS DESIGN ENGINEER Hospital Encounter [facility] [address] [place] [address] Screening for cervical cancer Discharge Disposition: Discharge to home or self care 05/23/2024 12:30 PM MECHANICAL SYSTEMS DESIGN ENGINEER Office Visit [facility] Primary Care [address] [place] [phone] Daiana Balderas NP Encounter for well woman exam with routine gynecological exam (Primary Dx); Screening for cervical cancer; CAYDEN (generalized anxiety disorder) from Last 3 Months Allergies No known active allergies Medications No known medications Active Problems Problem Noted Date Diagnosed Date Encounter for well woman girma m with routine gynecological exam 05/23/2024 Assessment & Plan (05/26/2024 6:49 AM MECHANICAL SYSTEMS DESIGN ENGINEER): CBC, CMP, lipid panel,TSH UTD with stable results. Mammogram last completed: 08/2023 Pelvic exam completed in office, patient tolerated procedure well. Pap with HPV testing ordered. Vaccinations: Flu and Tdap vaccines UTD. Patient to continue in current diet and exercise routine. Repeat wellness exam in one year. CAYDEN (generalized anxiety disorder) 02/28/2023 Assessment & Plan (05/26/2024 6:47 AM MECHANICAL SYSTEMS DESIGN ENGINEER): Chronic, controlled without medication. Patient to follow [...] Comments Blood Pressure 112/80 05/23/2024 12:39 PM MECHANICAL SYSTEMS DESIGN ENGINEER Pulse 88 05/23/2024 12:39 PM MECHANICAL SYSTEMS DESIGN ENGINEER Temperature 36.6 ??C (97.9 ??F) 05/23/2024 1 2:39 PM MECHANICAL SYSTEMS DESIGN ENGINEER Respiratory Rate 16 05/23/2024 12:3 9 PM MECHANICAL SYSTEMS DESIGN ENGINEER Oxygen Saturation 98% 05/23/2024 12: 39 PM MECHANICAL SYSTEMS DESIGN ENGINEER Inhaled Oxygen Concentration - - Weight 60.3 kg (132 lb 14.4 oz) 024 12:39 PM MECHANICAL SYSTEMS DESIGN ENGINEER Height 170.2 cm (5' 7 ) 05/23/2024 12:3 9 PM MECHANICAL SYSTEMS DESIGN ENGINEER Body Mass Index 20.82 05/23/2024 12:39 PM MECHANICAL SYSTEMS DESIGN ENGINEER Plan of Treatment Not on file Procedures Procedure Name Priority Date/Time Associated Diagnosis Comments PAP AND HIGH RISK HPV, REFLEX TO GENOTYPING Routine 05/23/2024 1:12 PM MECHANICAL SYSTEMS DESIGN ENGINEER Screening for cervical cancer HIGH RISK HPV DNA DETECTION WITH GENOTYPING Routine 05/23/2024 1:12 PM MECHANICAL SYSTEMS DESIGN ENGINEER Screening for cervical cancer from Last 3 Months Results * High Risk HPV DNA Detection with Genotyping (Molecular component) (05/23/2024 1:12 PM MECHANICAL SYSTEMS DESIGN ENGINEER) HPV HR 16 Not Detected Not Detected [facility] Comment:Testing performed by : [facility], [address] [place] [address]., [address] HPV HR 18 Not Detected Not Detected [facility] Comment:Testing performed by : [facility], [address] [place]., [address] HPV HR Non 16/18 Not Detected Not [...] this test have been verified by the [facility] Molecular Infectious Disease laboratory. Correlate with separately reported cytology results, as applicable. Interpretive data last revised 22 Testing performed by: [facility], [address] [place] [address]., [address] Endocervical 05/23/2024 1:12 PM MECHANICAL SYSTEMS DESIGN ENGINEER 05/23/2024 9:23 PM MECHANICAL SYSTEMS DESIGN ENGINEER Narrative [facility] - 05/24/2024 6:20 AM MECHANICAL SYSTEMS DESIGN ENGINEER Clinical history and diagnosis->screening for cervical cancer Number of vials->1 Testing type->Screening Last menstrual period (date if known)->05/11/2024 Menstrual status->Regular us Daiana Balderas NP LAB BODY FLUIDS AND STOOLS ORD ERABLES Final Result [facility] [address] [facility] Department [place] [address] [facility] * Pap and High Risk HPV and Genotyping (Cytology Component) (05/23/2024 1:12 PM MECHANICAL SYSTEMS DESIGN ENGINEER) Thin prep (Pap test) 05/23/2024 1:12 PM MECHANICAL SYSTEMS DESIGN ENGINEER 05/26/2024 8:55 AM MECHANICAL SYSTEMS DESIGN ENGINEER Narrative PATHOLOGY [facility] - 05/30/2024 10:22 AM MECHANICAL SYSTEMS DESIGN ENGINEER EPIC results best viewed via link to PDF [facility] [place] [address] Note to Patients: This report may contain [...] Gender: ??F : ??1990 (Age: 34) Address: ??[address] [place] [address] ??[phone] Hospital #: ??[id number] Service: ??DEFAULT Location: ?? Patient Type: ??[facility] SPECIMEN Taken: ??05/23/2024 Received: ??05/26/2024 Accessioned: ??05/26/2024 [...] this test have been verified by the [facility] Molecular Infectious Disease laboratory. Correlate [...] clinical information and biopsy results as indicated. [facility] Clinical Laboratory Improvement Amendments (CLIA) mandate that cytologic and histologic results be correlated for laboratory vice president quality assurance & improvement standards. ??FOR ALL HIGH-GRADE CASES [...] determined by the Surgical Pathology Department at [facility] as part of an ongoing supervisor vendor quality program and in compliance with federally mandated [...] determined by the Surgical Pathology Department of [facility]. ??It has not been cleared or approved by the U. S. Food and Drug Administration. Daiana Balderas NP LAB CYTOLOGY ORDERABLES Final Result PATHOLOGY [facility] from Last 3 Months Insurance [facility] Care Teams Assistant Boiler Operator Relationship Specialty Start Date End Date Daiana Balderas NP [address] [place] [phone] PCP - General Nurse Practitioner 10/25/22
--- OUTSIDE RECORDS SUMMARY | 2024-06-14 02:54 | XMS_ITS | Referral Summary ---
Author Organization [facility] Address [address] [facility] [place] [address] Care Team Providers Care Biological Sciences Instructor Name Role Phone Daiana Balderas MD Primary Care Provider Unavaila ble Source Comments [facility],non-owned Affiliates and Associated Physician Practices is amultiple site organization consisting of ambulatory clinics and hospital sitesin [place], [place], [place] and [place]. This disclosure is being madepursuant to the Care Everywhere program and may not contain all information available regarding this patient. Last updated 18.[facility] Allergies No known active allergies Medications Be aware that medications may not be up to date on this document. Always verify current medications with the patient. No known medications Social History Tobacco Use Types Packs/Day Years Used Date Smoking Tobacco: Never Smokeless Tobacco: Never Sex and Gender Information Value Date Recorded Sex Assigned at Not on file Gender Identity Female 05/09/2021 6:43 PM CUTTER WET MACHINE Sexual Orientation Not on file Last Filed Vital Signs Vital Sign Reading Time Taken Comments Blood Pressure 102/72 05/09/2021 6:48 PM CUTTER WET MACHINE Pulse 96 05/09/2021 6:48 PM CUTTER WET MACHINE Temperature 36.8 ??C (98.3 ??F) 05/09/2021 6:48 PM CS T Respiratory Rate 16 05/09/2021 6:48 PM CUTTER WET MACHINE Oxygen Saturation 97% 05/09/2021 6:48 PM CUTTER WET MACHINE Inhaled Oxygen Concentration - - Weight 56.7 kg (125 lb) 05/09/2021 6:48 PM CUTTER WET MACHINE Height 170.2 cm (5' 7 ) 05/09/2021 6:48 PM CUTTER WET MACHINE Body Mass Index 19.58 05/09/2021 6:48 PM CUTTER WET MACHINE Plan of Treatment Not on file Care Teams Biological Sciences Instructor Relationship Specialty Start Date End Date Daiana Balderas MD PCP - General 11/02/21
--- OUTSIDE RECORDS SUMMARY | 2024-06-14 02:54 | XMS_ITS | Encounter Summary ---
Author Organization [facility] Address [address] [facility] [place] [address] Care Team Providers Care Sagger Maker Name Role Phone Unavailable Primary Care Provider Unavailabl e Reason for Visit * Reason Onset Date Comments Follow-up 05/11/2021 Encounter Details Date Type Department Care Team (Late st Contact Info) Description 05/11/2021 Telephone [facility] AT [address] [phone] Darrion Perry APRN-CNP [address] [place] [phone] Follow-up Social History Tobacco Use Types Packs/Day Years Used Date Smoking Tobacco: Never Smokeless Tobacco: Never Sex and Gender Information Value Date Recorded Sex Assigned at Not on file Gender Identity Female 05/09/2021 6:43 PM SWITCHING CLERK Sexual Orientation Not on file COVID-19 Exposure Response Date Recorded In the last month, have you been in contact with someone who was confirmed or suspected to have Coronavirus / COVID-19? No / Unsure 05/09/2021 6:35 PM SWITCHING CLERK documented as of this encounter Miscellaneous Notes * Telephone Encounter - Darrion Perry APRN-CNP - 05/11/2021 9:42 AM SWITCHING CLERK GRINDER SETUP OPERATOR called for f/u. GRINDER SETUP OPERATOR spoke to pt who stated she was doing better, voiced no further questions or concerns and thanked us for the f/u call. CHING CLERK documented in this encounter Plan of Treatment Not on file documented as of this encounter Visit Diagnoses Not on filedocumented in this encounter
--- OUTSIDE RECORDS SUMMARY | 2024-06-14 02:54 | XMS_ITS | Encounter Summary ---
Author Organization [facility] Address [address] [facility] [place] [address] Care Team Providers Care Welding Machine Operator Arc Name Role Phone Unavailable Primary Care Provider Unavailabl e Encounter Details Date Type Department Care Team (Latest Contact Info) Description 05/09/2021 Travel Social History Tobacco Use Types Packs/Day Years Used Date Smoking Tobacco: Never Smokeless Tobacco: Never Sex and Gender Information Value Date Recorded Sex Assigned at Not on file Gender Identity Female 05/09/2021 6:43 PM COIN WRAPPING MACHINE OPERATOR Sexual Orientation Not on file COVID-19 Exposure Response Date Recorded In the last month, have you been in contact with someone who was confirmed or suspected to have Coronavirus / COVID-19? No / Unsure 05/09/2021 6:35 PM COIN WRAPPING MACHINE OPERATOR documented as of this encounter Plan of Treatment Not on file documented as of this encounter Visit Diagnoses Not on filedocumented in this encounter
--- OUTSIDE RECORDS SUMMARY | 2024-06-14 02:54 | XMS_ITS | Encounter Summary ---
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
--- OUTSIDE RECORDS SUMMARY | 2024-06-14 02:54 | XMS_ITS | Encounter Summary ---
Author Organization [facility] Healthcare Address [address] [place] [address] Care Team Providers Care Lacemaker Name Role Phone Daiana Balderas NP Primary Care Provider [phone] Reason for Visit * Reason Comments TB Test PPD read Encounter Details Date Type Department Care Team (Latest Contact Info) Description 12/31/2023 8:30 AM CDT Clinical Support [facility] Medical Group Primary Care [facility] [address] [place] [phone] Encounter for PPD skin test [...] Primary documented in this encounter Care Teams Lacemaker Relationship Specialty Start Date End Date Daiana Balderas NP [address] [place] [phone] PCP - General Nurse Practitioner 10/25/22 documented as of this encounter
--- OUTSIDE RECORDS SUMMARY | 2024-06-14 02:54 | XMS_ITS | Encounter Summary ---
Author Organization [facility] Healthcare Address [address] [place] [address] Care Team Providers Care Pick Up Driver Name Role Phone Daiana Balderas CATH LAB NURSE Primary Care Provider [phone] Reason for Visit * Reason Onset Date Comments Additional Services Or Orders 12/18/2023 Encounter Details Date Type Department Care Team ([facility] st Contact Info) Description 12/18/2023 Telephone [facility] Medical Group Primary Care [address] [facility] [address] [place] [phone] Daiana Balderas, CATH LAB NURSE [address] [address] Additional Services Or Orders Social [...] is returning a missed call from Rasheeda. HOTEL OPERATIONS MANAGER advised patient of Rasheeda's message and went [...] on filedocumented in this encounter Care Teams Pick Up Driver Relationship Specialty Start Date End Date Daiana Balderas, KUMAR [address] [place] [phone] PCP - General Nurse Practitioner 10/25/22 documented as of this encounter
--- OUTSIDE RECORDS SUMMARY | 2024-06-14 02:54 | XMS_ITS | Encounter Summary ---
Author Organization [facility] Healthcare Address [address] [place] [address] Care Team Providers Care Stunt Double Name Role Phone Daiana Balderas MECHANIC Primary Care Provider [phone] Reason for Visit * Reason Comments Annual Exam Well woman Encounter Details Date Type Department Care Team (Latest Contact Info) Description 05/23/2024 12:30 PM RIPSAW MATCHER Office Visit [facility] Primary [facility] [address] [phone] Daiana Balderas, MECHANIC [address] [address] Encounter for well woman exam [...] Comments Blood Pressure 112/80 05/23/2024 12:39 PM RIPSAW MATCHER Pulse 88 05/23/2024 12:39 PM RIPSAW MATCHER Temperature 36.6 ??C (97.9 ??F) 05/23/2024 1 2:39 PM RIPSAW MATCHER Respiratory Rate 16 05/23/2024 12:3 9 PM RIPSAW MATCHER Oxygen Saturation 98% 05/23/2024 12: 39 PM RIPSAW MATCHER Inhaled Oxygen Concentration - - Weight 60.3 kg (132 lb 14.4 oz) 024 12:39 PM RIPSAW MATCHER Height 170.2 cm (5' 7 ) 05/23/2024 12:3 9 PM RIPSAW MATCHER Body Mass Index 20.82 05/23/2024 12:39 PM RIPSAW MATCHER documented in this encounter Progress Notes * Daiana Balderas, MECHANIC - 05/23/2024 12:30 PM CST Subjective/Objective Patient [...] MAMMAPLASTY Bilateral saline - age of 28 NM BREAST AUGMENTATION WITH IMPLANT Breast Surgery Enlargement Procedure With Prosthetic Implant - 01/2012 (Added by TW Conv) NM COLPOSCOPY CERVIX UPPR/ADJCNT VAGINA W/CERVIX BX Colposcopy [...] Onset Hypertension Mother Hypertension - (Added by [email or web address] Conv) Hypertension Father Alcohol abuse Father Diabetes type II Maternal Grandmother Type 2 Diabetes Mellitus - (Added by [email or web address] Conv) Stroke Paternal Grandfather Stroke Syndrome - (Added by [email or web address] Conv) Social History Tobacco Use Smoking status: [...] Order Specific Question: Specimen Receiving location Answer: [facility] Order Specific Question: Clinical history and diagnosis Answer: screening for cervical cancer Order Specific Question: Number of vials Answer: 1 Order Specific Question: Testing type Answer: Screening Order Specific Question: Last menstrual period (date if known) Answer: 05/11/2024 Order Specific Question: Menstrual status Answer: Regular AW MATCHER documented in this encounter Miscellaneous Notes * Assessment & Plan Note - Daiana Balderas NP - 05/26/2024 6:49 AM RIPSAW MATCHER Associated Problem(s): Encounter for well woman exam with routine gynecological exam CBC, CMP, lipid panel,TSH UTD with stable results. Mammogram last completed: 08/2023 Pelvic exam completed in office, patient tolerated procedure well. Pap with HPV testing ordered. Vaccinations: Flu and Tdap vaccines UTD. Patient to continue in current diet and exercise routine. Repeat wellness exam in one year. AW MATCHER AW MATCHER * Assessment & Plan Note - Daiana Balderas NP - 05/26/2024 6:47 AM RIPSAW MATCHER Associated Problem(s): CAYDEN (generalized anxiety disorder) Chronic, controlled without medication. Patient to follow up yearly. AW MATCHER documented in this encounter Plan of Treatment Not on file documented as of this encounter Results * High Risk HPV DNA Detection with Genotyping (Molecular component) (05/23/2024 1:12 PM RIPSAW MATCHER) HPV HR 16 Not Detected Not Detected [facility] Comment:Testing performed by : [facility], [address] [place] [address] HPV HR 18 Not Detected Not Detected [facility] Comment:Testing performed by : [facility], [address] [place] [address] HPV HR Non 16/18 Not Detected Not [...] this test have been verified by the [facility] Molecular Infectious Disease laboratory. Correlate with separately reported cytology results, as applicable. Interpretive data last revised 22 Testing performed by: [facility], [address] [place]., [address] Endocervical 05/23/2024 1:12 PM RIPSAW MATCHER 05/23/2024 9:23 PM RIPSAW MATCHER Narrative [facility]ASS[facility] - 05/24/2024 6:20 AM RIPSAW MATCHER Clinical history and diagnosis->screening for cervical cancer Number of vials->1 Testing type->Screening Last menstrual period (date if known)->05/11/2024 Menstrual status->Regular Daiana Balderas NP LAB BODY FLUIDS AND STOOLS ORD ERABLES Final Result [facility] [address] [facility] Department [place] [address] [facility] * Pap and High Risk HPV and Genotyping (Cytology Component) (05/23/2024 1:12 PM RIPSAW MATCHER) Thin prep (Pap test) 05/23/2024 1:12 PM RIPSAW MATCHER 05/26/2024 8:55 AM RIPSAW MATCHER Narrative [facility]OLOG[facility] - 05/30/2024 10:22 AM RIPSAW MATCHER EPIC results best viewed via link to PDF [facility] [place] [address] Note to Patients: This report may contain [...] Gender: ??F : ??1990 (Age: 34) Address: ??[address] [place] [address] ??[id number] Hospital #: ??[id number] Service: ??DEFAULT Location: ?? Patient Type: ??[facility] SPECIMEN Taken: ??05/23/2024 Received: ??05/26/2024 Accessioned: ??05/26/2024 Reported: ??05/30/2024 Physician(s): ??Daiana Balderas, MECHANIC ?? FINAL INTERPRETATION SOURCE OF SPECIMEN ? [...] this test have been verified by the [facility] Molecular Infectious Disease laboratory. Correlate with [...] results as indicated. [facility] Clinical Laboratory Improvement Amendments (CLIA) mandate that cytologic and histologic results be correlated for laboratory quality assurance coach & improvement standards. ??FOR ALL HIGH-GRADE CASES [...] determined by the Surgical Pathology Department at [facility] as part of an ongoing water quality analyst program and in compliance with federally mandated [...] determined by the Surgical Pathology Department of [facility]. ??It has not been cleared or approved by the [place]. S. Food and Drug Administration. Daiana Balderas NP LAB CYTOLOGY ORDERABLES Final Result [facility] documented in this encounter Visit Diagnoses Diagnosis Encounter for well woman exam with routine gynecological exam- Primary Screening for cervical cancer Screening for malignant neoplasm of the cervix CAYDEN (generalized anxiety disorder) Generalized anxiety disorder Screening for cervical cancer Screening for malignant neoplasm of the cervix documented in this encounter Care Teams Stunt Double Relationship Specialty Start Date End Date Daiana Balderas, KUMAR [address] [place] [id number] PCP - General Nurse Practitioner 10/25/22 documented as of this encounter
--- OUTSIDE RECORDS SUMMARY | 2024-06-14 02:54 | XMS_ITS | Encounter Summary ---
Author Organization [facility] Address [address] [facility] [address] [place] [address] Care Team Providers Care Car Storer Name Role Phone No, Physician Primary Care Provider [phone] Encounter Details Date Type Department Care Team (Late st Contact Info) Description 09/22/2022 Telephone [facility] Cardiology [address] [place] [address] No, Physician Social History Tobacco [...] on filedocumented in this encounter Care Teams Car Storer Relationship Specialty Start Date End Date No, Physician PCP - General 09/22/22 10/24/22 documented as of this encounter
--- OUTSIDE RECORDS SUMMARY | 2024-06-14 02:54 | XMS_ITS | Clinical Summary ---
Author Organization [facility] [employer] Address [address] [facility] [place] [address] Care Team Providers Care Osteopathy Doctor Name Role Phone Daiana Balderas MD Primary Care Provider Unavaila ble Source Comments [facility] [employer],non-owned Affiliates and Associated Physician Practices is amultiple site organization consisting of ambulatory clinics and hospital sitesin [place], [place], [place] and [place]. This disclosure is being madepursuant to the Care Everywhere program and may not contain all information available regarding this patient. Last updated 18.[employer] Allergies No known active allergies Medications Be aware that medications may not be up to date on this document. Always verify current medications with the patient. No known medications Social History Tobacco Use Types Packs/Day Years Used Date Smoking Tobacco: Never Smokeless Tobacco: Never Sex and Gender Information Value Date Recorded Sex Assigned at Not on file Gender Identity Female 05/09/2021 6:43 PM SPEECH AND HEARING DIRECTOR Sexual Orientation Not on file Last Filed Vital Signs Vital Sign Reading Time Taken Comments Blood Pressure 102/72 05/09/2021 6:48 PM SPEECH AND HEARING DIRECTOR Pulse 96 05/09/2021 6:48 PM SPEECH AND HEARING DIRECTOR Temperature 36.8 ??C (98.3 ??F) 05/09/2021 6:48 PM CS T Respiratory Rate 16 05/09/2021 6:48 PM SPEECH AND HEARING DIRECTOR Oxygen Saturation 97% 05/09/2021 6:48 PM SPEECH AND HEARING DIRECTOR Inhaled Oxygen Concentration - - Weight 56.7 kg (125 lb) 05/09/2021 6:48 PM SPEECH AND HEARING DIRECTOR Height 170.2 cm (5' 7 ) 05/09/2021 6:48 PM SPEECH AND HEARING DIRECTOR Body Mass Index 19.58 05/09/2021 6:48 PM SPEECH AND HEARING DIRECTOR Plan of Treatment Health Maintenance Due Date Last Done Comments PAP SMEAR 1990 HIV SCREENING 01/18/2003 HEPATITIS C SCREENING 01/14/2006 DTAP/TDAP/TD VACCINES (1 - Tdap) 01/18/2007 HEPATITIS B VACCINE (1 of 3 - 19+ 3-dose series) 01/18/2007 COVID-19 VACCINE (3 - 2023-2 5 season) 2024 03/10/2021, 02/17/2021 INFLUENZA VACCINE (#1) 2024 9, 04/17/2019 DEPRESSION SCREENING 06/11/2024 ZOSTER VACCINE (1 of 2) 01/18/2038 HIB [...] age to complete this topic Care Teams Osteopathy Doctor Relationship Specialty Start Date End Date Daiana Balderas MD PCP - General 11/02/21
--- OUTSIDE RECORDS SUMMARY | 2024-06-14 02:55 | XMS_ITS | Encounter Summary ---
Author Organization [facility] Healthcare Address [address] [place] [address] Care Team Providers Care Marine Safety Officer Name Role Phone No, Physician Primary Care Provider [phone] Daiana Balderas NP Primary Care Provider [phone] Encounter Details Date Type Department Care Team (Late st Contact Info) Description 08/26/2021 Orders Only [facility] Health Information Management [address] [place] [id number] Scanning, Provider Social History Tobacco Use [...] on filedocumented in this encounter Care Teams Marine Safety Officer Relationship Specialty Start Date End Date No, Physician PCP - General 09/22/22 10/24/22 Daiana Balderas, SETTER OFF [address] [place] [id number] PCP - General Nurse Practitioner 10/25/22 documented as of this encounter
== END 2024-06-07 05:30 | disposition home or self-care (01) ==
PROVIDERS: Physician Assistant; Emergency Provider Emergency Medicine
DX: R10.9 Unspecified abdominal pain (principal); K59.00 Constipation, unspecified
CPT/HCPCS: 36415; 74177; 76856; 80053; 81001; 81025; 83690; 85025; 87086; 99284; A9270; Q9967